=== PATIENT | male | born 1935 | race Caucasian/White ===

== ENCOUNTER 2021-02-08 17:18 | Inpatient (IN) ==
[2021-02-08] MEDS ORDERED: PANTOprazole 80 MG in DEXTROSE 5% 100 ML IV STA (17:25)
--- NOTE | 2021-02-08 17:44 | Emergency Department Note ---
Impression & Plan COVID-19, Non-ST elevation [place] (NSTEMI), Bloody diarrhea, Hypoxia ED Provider Note Provider: Johnny Kelley MD DATE OF SERVICE: 02/08/2021 CHIEF COMPLAINT: Bloody diarrhea, vomiting HISTORY OF PRESENT ILLNESS: Patient is a 85-year-old male with a history of A. fib, GERD, hypothyroidism presenting here today via ambulance with reports of weakness and bloody diarrhea starting yesterday. Patient states that he feels generally weak and little short of breath. Denies any abdominal pain. States he felt nauseous and vomited several times. Received IV steroids, DuoNeb, and Zofran x2 prior to arrival for EMS. Patient is fatigued in appearance. Has been sick with Covid since the 12th of this month. Was evidently seen according to his this morning at the [facility] emergency department and placed on Augmentin for pneumonia although was told likely viral pneumonia. Patient has had diarrhea for more than a week he reports. Worsening weakness at home today and states he fell down onto his hands at the top of the floor but did not strike his head. Patient did take his Eliquis earlier today. Denies a history of GI bleed. Patient reports he tried to eat but threw up his medicines early. Patient denies any headache or dizziness. Patient is vaccinated for Covid. REVIEW OF SYSTEMS: A total of 10 review of systems was obtained and negative except as stated above in the HPI. PAST MEDICAL HISTORY: As noted above MEDICATIONS: Reviewed home medications include Eliquis SOCIAL HISTORY: Lives at home with PHYSICAL EXAM: GENERAL: alert and oriented on the stretcher appears fatigued Head: normocephalic and atraumatic EYES: No injection, discharge or icterus. NECK: Trachea midline. Supple. ENT: Mucous membranes pink and moist. LUNGS: Airway patent. No retractions. Breath sounds clear HEART: Regular rate and rhythm. No chest wall tenderness ABDOMEN: Soft and non-tender, without guarding or rebound. SKIN: Acyanotic but pale in appearance, warm, dry, without rashes EXTREMITIES: Without tenderness but 1+ bilateral lower extremity edema. NEUROLOGICAL: No focal deficits. No aphasia. No facial droop or slurred speech. EK bpm ventricular paced rhythm without PVC. No acute ST segment elevation noted with a QTC of 546. No priors available here. CONTINUOUS CARDIAC MONITORING: was ordered and showed a heart rate of 70s bpm in ventricular paced rhythm Patient's laboratory studies and imaging reviewed. Differential includes Diverticulosis, AVM, coagulopathy, colitis, inflammatory bowel disease, malignancy, Leslee-Burden tear, esophagitis, peptic ulcer disease, variceal bleed, gastritis, epistaxis, fissure, hemorrhoids, neurological, cardiac as well as other pathologies. IMPRESSION/MEDICAL DECISION MAKING: Patient fatigued hypoxic on room air with history of Covid. Diarrhea for several weeks now bloody over the last day or 2 according to him. Some vomiting earlier today. Denies significant abdominal pain but pale in appearance. Not hypotensive. No significant leukocytosis here. Mild anemia of 11. No prior blood work here. EKG appears placed and is hypertensive. Patient INR is elevated at 2.0. Took a dose of Augmentin earlier today but otherwise has not been on antibiotics. denies significant symptoms. No other sick contacts reported. Given Protonix here initially. Type and screen sent to the blood bank. Patient did have a fall to his hands but did not fall and strike his head. Do not believe we need imaging of his head at this time. CT the abdomen pelvis to be obtained to look for intra-abdominal pathology. Renal function appears stable. Mild transaminitis with an elevated troponin noted today. Patient again denies chest pain. Likely demand. Given some dexamethasone was hypoxia. Feel is less likely this is an upper GI bleed again and believe given his significant pulmonary findings steroids would be indicated. Again did receive a bolus of 80 mg of Protonix. No severe electrolyte abnormality. CT abdomen pelvis per radiology without significant acute intra-abdominal pathology. Discussed with the hospitalist. We will proceed with CT of the chest to exclude bacterial pneumonia component. Significant pulmonary consolidations noted and given the duration of illness will cover broadly with Zosyn and vancomycin. Symptoms likely related to Covid. Doubt significant upper GI bleed. Patient and were updated at bedside with the plan for admission and further care. DIAGNOSIS: Bloody diarrhea, COVID-19 pneumonia, hypoxia DISPOSITION: Hospitalist will evaluate Patient was agreeable with this plan. Critical Care I have personally spent 35 minutes of critical care time in the direct management of this patient. This includes bedside care, interpretation of diagnostic studies, and testing, discussion with consultants, patient, and family members, and other required patient management activities. These 35 minutes is in excess of all separately billable procedures. 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 Beliefs That Will Affect Care: None Current Living Situation: Spouse Current Living Situation Comment: Lives independently at home with Merari Feels Safe at Home: Yes Safety Concerns: Feels Safe At This Time Allergies Allergies Allergy/AdvReac Type Severity Reaction Status Date / Time sulfamethoxazole Allergy Intermediate BLISTER--PER Verified 02/08/21 17:33 [From Bactrim] MED LIST trimethoprim [From Bactrim] Allergy Intermediate BLISTER--PER Verified 02/08/21 17:33 MED LIST bee venom protein (honey bee) Allergy Unknown ON MED LIST Verified 02/08/21 17:33 POLLEN Allergy Unknown ON MED LIST Uncoded 02/08/21 17:33 Home Meds Home Medications Medication Instructions Recorded Confirmed acetaminophen 325 mg tablet 650 mg PO DIRECTED PRN 02/08/21 02/08/21 (Tylenol) amoxicillin 875 mg-potassium 1 tab PO BID 02/08/21 02/08/21 clavulanate 125 mg tablet apixaban 5 mg tablet (Eliquis) 5 mg PO BID 02/08/21 02/08/21 atorvastatin 80 mg tablet 80 mg PO QPM 02/08/21 02/08/21 diphenoxylate-atropine 2.5 1 tab PO DIRECTED PRN 02/08/21 02/08/21 mg-0.025 mg tablet doxazosin 4 mg tablet 4 mg PO DAILY 02/08/21 02/08/21 dutasteride 0.5 mg capsule 0.5 mg PO DAILY 02/08/21 02/08/21 furosemide 40 mg tablet See Rx Instructions .ROUTE .COMPLEX 02/08/21 02/08/21 guaifenesin 600 mg tablet, 600 mg PO Q12H PRN 02/08/21 02/08/21 extended release 12 hr (Mucinex) lansoprazole 15 mg capsule,delayed 15 mg PO DAILY 02/08/21 02/08/21 release levothyroxine 25 mcg tablet 25 mcg PO DAILYBB 02/08/21 02/08/21 metoprolol succinate 50 mg 75 mg PO DAILY 02/08/21 02/08/21 tablet,extended release 24 hr potassium chloride 20 mEq 40 meq PO DAILY 02/08/21 02/08/21 tablet,extended release(part/cryst) (Klor-Con M) vitamins A,C,G-cdtx-runstl 7,160 1 tab PO BID 02/08/21 02/08/21 unit-113 mg-100 unit tablet (PreserVision AREDS) Results & Data (ED) Vital Signs Vital Signs - 24 hr 02/08/21 17:27 02/08/21 17:48 02/08/21 18:00 Temperature 36.5 C Temperature Source Oral Pulse Rate 70 70 70 Pulse Rate [Apical] Pulse Rate from SpO2 Sensor 70 70 69 Respiratory Rate 15 20 23 Blood Pressure 166/94 H 174/108 H 164/107 H Blood Pressure [Left Arm] Blood Pressure Mean 118 130 126 Blood Pressure Mean [Left Arm] Pulse Oximetry 93 93 95 Oxygen Delivery Method Room Air Oxygen Flow Rate Sepsis Recent Fever Within 48 Hours Yes Sepsis New/Unexplained Change in Mental Status No Sepsis Action Taken by Nursing No Action Required 02/08/21 18:12 02/08/21 18:28 02/08/21 18:30 Temperature Temperature Source Pulse Rate 73 Pulse Rate [Apical] 71 Pulse Rate from SpO2 Sensor 71 Respiratory Rate 18 21 Blood Pressure 164/91 H Blood Pressure [Left Arm] 164/107 H Blood Pressure Mean 115 Blood Pressure Mean [Left Arm] 126 Pulse Oximetry 95 95 95 Oxygen Delivery Method Nasal Cannula Nasal Cannula Oxygen Flow Rate 3 3 Sepsis Recent Fever Within 48 Hours Sepsis New/Unexplained Change in Mental Status Sepsis Action Taken by Nursing 02/08/21 19:01 02/08/21 19:30 02/08/21 20:30 Temperature Temperature Source Pulse Rate 72 71 70 Pulse Rate [Apical] Pulse Rate from SpO2 Sensor 69 69 81 Respiratory Rate 22 21 21 Blood Pressure 171/93 H 166/93 H 160/97 H Blood Pressure [Left Arm] Blood Pressure Mean 119 117 118 Blood Pressure Mean [Left Arm] Pulse Oximetry 96 96 93 Oxygen Delivery Method Oxygen Flow Rate 3 3 3 Sepsis Recent Fever Within 48 Hours Sepsis New/Unexplained Change in Mental Status Sepsis Action Taken by Nursing 02/08/21 21:00 Temperature Temperature Source Pulse Rate 71 Pulse Rate [Apical] Pulse Rate from SpO2 Sensor 69 Respiratory Rate 17 Blood Pressure 138/90 Blood Pressure [Left Arm] Blood Pressure Mean 106 Blood Pressure Mean [Left Arm] Pulse Oximetry 98 Oxygen Delivery Method Oxygen Flow Rate 3 Sepsis Recent Fever Within 48 Hours Sepsis New/Unexplained Change in Mental Status Sepsis Action Taken by Nursing Laboratory Data Result diagrams: 02/08/21 17:35 02/08/21 17:35 Lab Results 02/08/21 02/08/21 02/08/21 Range/Units 17:35 17:35 17:35 WBC 9.70 (4.8-10.8) K/uL RBC 3.31 L (4.7-6.1) M/uL Hgb 11.0 L (14.0-18.0) g/dL Hct 33.2 L (42-52) % MCV 100.3 H (80-100) fL MCH 33.2 (25-34) pg MCHC 33.1 (32-36) g/dL RDW Std Deviation 51.8 H (36.4-46.3) fL RDW Coeff of Milana 14.1 (11.5-14.5) % Plt Count 210 (130-400) K/uL MPV 11.0 H (7.4-10.4) fL Immature Gran % (Auto) 0.7 % Neut % (Auto) 76.1 % Lymph % (Auto) 12.3 % Victoria % (Auto) 9.9 % Eos % (Auto) 0.9 % Baso % (Auto) 0.1 % Neut # (Auto) 7.38 H (1.4-6.5) K/uL Lymph # (Auto) 1.19 L (1.2-3.4) K/uL Victoria # (Auto) 0.96 H (0.11-0.59) K/uL Eos # (Auto) 0.09 (0-0.5) K/uL Baso # (Auto) 0.01 (0-0.2) K/uL Immature Gran # (Auto) 0.07 H (0.00-0.02) K/uL PT 19.3 H (9.0-12.0) Seconds INR 2.0 H (0.9-1.1) Sodium 135 L (136-145) mmol/L Potassium 4.1 (3.5-5.1) mmol/L Chloride 102 (98-107) mmol/L Carbon Dioxide 25 (21-32) mmol/L Anion Gap 8.0 (3-11) BUN 28 H (7-18) mg/dl Creatinine 1.09 (0.6-1.4) mg/dl Est Cr Clr Drug Dosing 53.6 ml/min Est GFR ( Amer) 70.9 ml/min Est GFR (Non-Af Amer) 61.1 ml/min BUN/Creatinine Ratio 25.3 H (10-20) Glucose 172 H (70-99) mg/dl Calcium 8.3 L (8.5-10.1) mg/dl Magnesium 2.0 (1.8-2.4) mg/dl Total Bilirubin 1.3 H (0.2-1) mg/dl AST 142 H (15-37) U/L ALT 194 H (12-78) U/L Alkaline Phosphatase 143 H (45-117) U/L Troponin I 1.920 H* (0-0.045) ng/ml Total Protein 7.6 (6.4-8.2) gm/dl Albumin 2.2 L (3.4-5.0) gm/dl Globulin 5.4 H (2.5-4.0) gm/dl Albumin/Globulin Ratio 0.4 L (0.9-2) TSH 1.740 (0.300-4.500) uIu/ml COVID-19 Eval Order SARS-CoV-2 (PCR) (Negative) Blood Type Antibody Screen 02/08/21 02/08/21 02/08/21 Range/Units 17:35 17:35 17:55 WBC (4.8-10.8) K/uL RBC (4.7-6.1) M/uL Hgb (14.0-18.0) g/dL Hct (42-52) % MCV (80-100) fL MCH (25-34) pg MCHC (32-36) g/dL RDW Std Deviation (36.4-46.3) fL RDW Coeff of Milana (11.5-14.5) % Plt Count (130-400) K/uL MPV (7.4-10.4) fL Immature Gran % (Auto) % Neut % (Auto) % Lymph % (Auto) % Victoria % (Auto) % Eos % (Auto) % Baso % (Auto) % Neut # (Auto) (1.4-6.5) K/uL Lymph # (Auto) (1.2-3.4) K/uL Victoria # (Auto) (0.11-0.59) K/uL Eos # (Auto) (0-0.5) K/uL Baso # (Auto) (0-0.2) K/uL Immature Gran # (Auto) (0.00-0.02) K/uL PT (9.0-12.0) Seconds INR (0.9-1.1) Sodium (136-145) mmol/L Potassium (3.5-5.1) mmol/L Chloride (98-107) mmol/L Carbon Dioxide (21-32) mmol/L Anion Gap (3-11) BUN (7-18) mg/dl Creatinine (0.6-1.4) mg/dl Est Cr Clr Drug Dosing ml/min Est GFR ( Amer) ml/min Est GFR (Non-Af Amer) ml/min BUN/Creatinine Ratio (10-20) Glucose (70-99) mg/dl Calcium (8.5-10.1) mg/dl Magnesium (1.8-2.4) mg/dl Total Bilirubin (0.2-1) mg/dl AST (15-37) U/L ALT (12-78) U/L Alkaline Phosphatase (45-117) U/L Troponin I (0-0.045) ng/ml Total Protein (6.4-8.2) gm/dl Albumin (3.4-5.0) gm/dl Globulin (2.5-4.0) gm/dl Albumin/Globulin Ratio (0.9-2) TSH (0.300-4.500) uIu/ml COVID-19 Eval Order Covid19 at [facility] SARS-CoV-2 (PCR) POSITIVE A* (Negative) Blood Type O Positive Antibody Screen NEGATIVE Administered Medications Atorvastatin Calcium (Atorvastatin 40 Mg Tab) 80 mg PO QPM KATHIA Stop: 03/10/21 22:59 Last Admin: 02/08/21 23:57 Dose: 80 mg Documented by: [id number] Doxazosin Mesylate (Doxazosin Mesylate 4 Mg Tab) 4 mg PO HS KATHIA Stop: 03/10/21 22:59 Last Admin: 02/08/21 23:57 Dose: 4 mg Documented by: [id number] Guaifenesin/Dextromethorphan (Guaifenesin/Dextrom Syrup 100mg/10mg 5ml Udc) 5 ml PO Q6H PRN PRN Reason: Cough Stop: 03/10/21 22:31 Last Admin: 02/08/21 23:56 Dose: 5 ml Documented by: [id number] Azithromycin 500 mg/ Dextrose 255 mls @ 125 mls/hr IV Q24H KATHIA Stop: 02/15/21 22:59 Last Admin: 02/08/21 23:58 Dose: 125 mls/hr Documented by: [id number] Discontinued Medications Dexamethasone Sodium Phosphate (DexamethasonePf 10 Mg/Ml Vial) 10 mg IV NOW ONE Stop: 02/08/21 19:34 Last Admin: 02/08/21 19:47 Dose: 10 mg Documented by: [id number] Pantoprazole Sodium 80 mg/ (Dextrose) 100 mls @ 400 mls/hr IV ONE STA Stop: 02/08/21 17:39 Last Infusion: 02/08/21 19:44 Dose: 0 mls/hr Documented by: [id number] Admin: 02/08/21 18:22 Dose: 400 mls/hr Documented by: [id number] Piperacillin Sod/Tazobactam Sod (Zosyn) 4.5 gm in 120 mls @ 240 mls/hr IV NOW ONE Stop: 02/08/21 21:07 Last Infusion: 02/08/21 21:14 Dose: 0 mls/hr Documented by: [id number] Admin: 02/08/21 20:44 Dose: 240 mls/hr Documented by: [id number] Vancomycin HCl 1,750 mg/ (Sodium Chloride) 535 mls @ 200 mls/hr IV NOW ONE Stop: 02/08/21 23:23 Last Admin: 02/08/21 23:10 Dose: 200 mls/hr Documented by: [id number] Ioversol (Optiray 320 100ml) 94 ml IV ONCE ONE Stop: 02/08/21 18:48 Last Admin: 02/08/21 18:47 Dose: 94 ml Documented by: [id number] Imaging Data Radiologist's Impression: Chest X-Ray 02/08/21 17:26 XR chest 1V portable HISTORY: weakness COMPARISON: None. FINDINGS: No pneumothorax. No pleural effusions. 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 The heart is mildly enlarged. No evidence for pulmonary edema. There are patchy bilateral airspace opacities most pronounced within the left lung. This consistent with a moderate multifocal pneumonia and is likely secondary to a viral process. IMPRESSION: Moderate multifocal pneumonia which is likely secondary to a viral process. ACT 112: Negative or not required by law. Electronically signed by: Nehemiah Talbert M.D. 02/08/2021 6:25 PM Abdomen/Pelvis CT 02/08/21 18:[address] WITH IV CONTRAST CT DOSE: 632.07 mGy.cm HISTORY: covid, bloody diarrhea TECHNIQUE: Multiaxial CT images of the abdomen and pelvis were performed following the use of intravenous contrast. A dose lowering technique was utilized adhering to the principles of ALARA. COMPARISON STUDY: None. FINDINGS: Multifocal patchy groundglass and consolidative airspace opacities within the lung bases consistent with the patient's known history of a viral pneumonia. The heart is mildly enlarged. A pacemaker wire is partially visualized. No pneumoperitoneum. No pneumatosis. Small fat-containing bilateral inguinal hernias. Mild bladder wall thickening which is likely chronic. The prostate gland is enlarged. A few colonic diverticula. No evidence for acute diverticulitis. No bowel wall thickening or obstruction. Normal appendix. Mild edema within the left lower quadrant adjacent to the pelvic sidewall best seen o n image 342. This is of uncertain clinical significance and could be due to a mild edematous state. There is mild body wall edema noted. No retroperitoneal lymphadenopathy. Calcified plaque within the normal caliber abdominal aorta. The main portal vein is patent. Mild bilateral perinephric edema which is likely chronic. The kidneys enhance normally. Multiple bilateral peripelvic renal cysts. No hydronephrosis. Punctate calcifications within the pancreas consistent with chronic pancreatitis. No CT evidence for acute pancreatitis at this time. Mild hepatic steatosis. The gallbladder, spleen, and adrenal glands are unremarkable. IMPRESSION: 1. No bowel wall thickening or obstruction. 2. Normal appendix. 3. Multifocal patchy airspace opacities within the lung bases consistent with the patient's known history of a viral pneumonia. 4. Evidence for chronic pancreatitis. No CT evidence for acute pancreatitis. 5. Additional findings as described above. ACT 112: Negative or not required by law. Electronically signed by: Nehemiah Talbert M.D. 02/08/2021 6:[address] 02/08/21 19:33 CT chest diagnostic wo con CT DOSE: 523.67 mGy.cm HISTORY: Weakness. Abnormal chest x-ray. TECHNIQUE: Multiaxial CT images of the chest were performed without contrast. A dose lowering technique was utilized adhering to the principles of ALARA. COMPARISON: None. FINDINGS: No pneumothorax. The central airways are patent. Scattered multifocal groundglass and consolidative airspace opacities within the lungs consistent with a pneumonia. A few scattered small nodular densities within the lungs with the largest in the right lower lobe on image 173 measuring 11 mm. Please refer to same day abdomen and pelvis CT for further evaluation of the abdominal structures. No fractures within the visualized osseous structures of the chest. 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 No significant mediastinal or hilar lymphadenopathy. The heart is normal in size. Trace pericardial effusion and trace bilateral pleural effusions. Normal esophagus. IMPRESSION: 1. Multifocal airspace opacities consistent with a moderate bilateral pneumonia. 2. Trace bilateral pleural effusions and a trace pericardial effusion. 3. A few small scattered nodular densities within the lungs with the largest in the right lower lobe measuring 11 mm. These likely correspond to the patient's pneumonia. However, consider six-month chest CT follow-up to ensure st ability/resolution. ACT 112: Negative or not required by law. Electronically signed by: Nehemiah Talbert M.D. 02/08/2021 8:30 PM Discharge Plan Visit Data Chief Complaint: Illness ED Provider: Johnny Kelley Discharge Problem: COVID-19, Non-ST elevation TN (NSTEMI), Bloody diarrhea, Hypoxia Patient Disposition: Admitted As Inpatient Discharge Instructions Interventions: ED Discharge Assessment Last Done: 02/08/21 22:10
[2021-02-08 17:51] LABS: Basophils # (auto) 0.01 K/uL (0-0.2); Basophils % (auto) 0.1 %; Eosinophils # (auto) 0.09 K/uL (0-0.5); Eosinophils % (auto) 0.9 %; Hematocrit (blood only) 33.2 % (42-52); Immature Granulocytes # (auto) 0.07 K/uL (0.00-0.02); Immature Granulocytes % (auto) 0.7 %; Lymphocytes # (auto) 1.19 K/uL (1.2-3.4); Lymphocytes % (auto) 12.3 %; Mean Corpuscular Hemoglobin 33.2 pg (25-34); Mean Corpuscular Hgb Conc 33.1 g/dL (32-36); Mean Corpuscular Volume 100.3 fL (80-100); Monocytes # (auto) 0.96 K/uL (0.11-0.59); Monocytes % (auto) 9.9 %; Neutrophils # (auto) 7.38 K/uL (1.4-6.5); Neutrophils % (auto) 76.1 %; Platelet Count 210 K/uL (130-400); RDW Coefficient of Variation 14.1 % (11.5-14.5); RDW Standard Deviation 51.8 fL (36.4-46.3); Red Blood Count 3.31 M/uL (4.7-6.1)
[2021-02-08 18:01] LABS: Prothrombin Time 19.3 Seconds (9.0-12.0)
[2021-02-08 18:12] LABS: Albumin Level 2.2 gm/dl (3.4-5.0); BUN Creatinine Ratio 25.3 (10-20); Calcium 8.3 mg/dl (8.5-10.1); Creatinine Clr Calc Pharmacy 53.6 ml/min; Est GFR (African American) 70.9 ml/min; Est GFR (Non-African American) 61.1 ml/min; Potassium 4.1 mmol/L (3.5-5.1)
--- NOTE | 2021-02-08 18:26 | XRay Report ---
XR chest 1V portable HISTORY: weakness COMPARISON: None. FINDINGS: No pneumothorax. No pleural effusions. 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 The hea rt is mildly enlarged. No evidence for pulmonary edema. There are patchy bilateral airspace opacities most pronounced within the left lung. This consistent with a moderate multifocal pneumonia and is li ean secondary to a viral process. IMPRESSION: Moderate multifocal pneumonia which is likely secondary to a viral process. ACT 112: Negative or not required by law. Electronically signed by: Nehemiah Talbert M.D. 02/08/2021 6:25 PM
[2021-02-08 18:29] LABS: Albumin Globulin Ratio 0.4 (0.9-2); Bilirubin,Total 1.3 mg/dl (0.2-1); Globulin 5.4 gm/dl (2.5-4.0); Thyroid Stimulating Hormone 1.74 uIu/ml (0.300-4.500); Total Protein 7.6 gm/dl (6.4-8.2); Troponin I 1.92 ng/ml (0-0.045)
[2021-02-08] MEDS ORDERED: OPTIRAY 320 100ml IV ONE (18:47)
--- NOTE | 2021-02-08 18:58 | CT Scan Report ---
ABDOMEN AND PELVIS CT WITH IV CONTRAST CT DOSE: 632.07 mGy.cm HISTORY: covid, bloody diarrhea TECHNIQUE: Multiaxial CT images of the abdomen and pelvis were performed following the use of intrave nous contrast. A dose lowering technique was utilized adhering to the principles of ALARA. COMPARISON STUDY: None. FINDINGS: Multifocal patchy groundglass and consolidative airspace opacities within the lung bases co nsistent with the patient's known history of a viral pneumonia. The heart is mildly enlarged. A pacem krzysztof wire is partially visualized. No pneumoperitoneum. No pneumatosis. Small fat-containing bilatera l inguinal hernias. Mild bladder wall thickening which is likely chronic. The prostate gland is enlar ged. A few colonic diverticula. No evidence for acute diverticulitis. No bowel wall thickening or obs truction. Normal appendix. Mild edema within the left lower quadrant adjacent to the pelvic sidewall best seen on image 342. This is of uncertain clinical significance and could be due to a mild [place] us state. There is mild body wall edema noted. No retroperitoneal lymphadenopathy. Calcified plaque w ithin the normal caliber abdominal aorta. The main portal vein is patent. Mild bilateral perinephric edema which is likely chronic. The kidneys enhance normally. Multiple bilateral peripelvic renal cyst s. No hydronephrosis. Punctate calcifications within the pancreas consistent with chronic pancreatiti s. No CT evidence for acute pancreatitis at this time. Mild hepatic steatosis. The gallbladder, splee n, and adrenal glands are unremarkable. IMPRESSION: 1. No bowel wall thickening or obstruction. 2. Normal appendix. 3. Multifocal patchy airspace opacities within the lung bases consistent with the patient's known his tory of a viral pneumonia. 4. Evidence for chronic pancreatitis. No CT evidence for acute pancreatitis. 5. Additional findings as described above. ACT 112: Negative or not required by law. Electronically signed by: Nehemiah Talbert M.D. 02/08/2021 6:57 PM
[2021-02-08] MEDS ORDERED: dexAMETHasone**PF** 10 MG/ML VIAL IV ONE (19:33)
--- NOTE | 2021-02-08 20:32 | CT Scan Report ---
CT chest diagnostic wo con CT DOSE: 523.67 mGy.cm HISTORY: Weakness. Abnormal chest x-ray. TECHNIQUE: Multiaxial CT images of the chest were performed without contrast. A dose lowering techni que was utilized adhering to the principles of ALARA. COMPARISON: None. FINDINGS: No pneumothorax. The central airways are patent. Scattered multifocal groundglass and conso lidative airspace opacities within the lungs consistent with a pneumonia. A few scattered small nodul ar densities within the lungs with the largest in the right lower lobe on image 173 measuring 11 mm. Please refer to same day abdomen and pelvis CT for further evaluation of the abdominal structures. No fractures within the visualized osseous structures of the chest. There is a left-sided single lead p acemaker. No significant mediastinal or hilar lymphadenopathy. The heart is normal in size. Trace per icardial effusion and trace bilateral pleural effusions. Normal esophagus. IMPRESSION: 1. Multifocal airspace opacities consistent with a moderate bilateral pneumonia. 2. Trace bilateral pleural effusions and a trace pericardial effusion. 3. A few small scattered nodular densities within the lungs with the largest in the right lower lobe measuring 11 mm. These likely correspond to the patient's pneumonia. However, consider six-month ches t CT follow-up to ensure stability/resolution. ACT 112: Negative or not required by law. Electronically signed by: Nehemiah Talbert M.D. 02/08/2021 8:30 PM
[2021-02-08] MEDS ORDERED: PIPERACILL/TAZOBAC CONSULT ACTIVE PRN ×2 (20:38→22:32)
[2021-02-08] MEDS ORDERED: PIPERACILLIN/TAZOBACTAM 4.5 GM/120 ML BAG IV ONE (20:38)
[2021-02-08] MEDS ORDERED: VANCOMYCIN CONSULT ACTIVE PRN ×2 (20:43→22:32)
[2021-02-08] MEDS ORDERED: VANCOMYCIN HCL 1,750 MG in SODIUM CHLORIDE 0.9% 500 ML IV ONE (20:43)
--- NOTE | 2021-02-08 21:12 | History & Physical Report ---
Date of Service February 08, 2021 Assessment & Plan (1) Pneumonia due to COVID-19 virus: Plan: Pneumonia due to COVID-19 virus/secondary multifocal bacterial pneumonia/hypoxia- Dexamethasone 10 mg IV given in ED Dexamethasone 6 mg IV every morning Remdesivir IV per protocol Azithromycin 500 mg IV daily Vancomycin IV per pharmacokinetic monitoring Zosyn 4.5 g IV every 8 hours Duonebs every 4 hours while awake and every 2 hours when necessary. Guaifenesin extended release 1200 mg p.o. twice daily Vitamin D 1000 international units p.o. daily Zinc sulfate 220 mg p.o. daily Nasal cannula oxygen, titrate to keep pulse ox 92-94% (2) Secondary bacterial pneumonia: Plan: See above (3) Hypoxia: Plan: See above (4) Hyperlipidemia: Plan: Continue atorvastatin 80 mg in the evening (5) Bloody diarrhea: Plan: Diarrhea became bloody after several days of nonbloody diarrhea Suspect hemorrhoidal bleeding. No further bleeding while in the ED Hold apixaban for now Order stool for C. difficile and culture (6) Non-ST elevation SC (NSTEMI): Plan: CAD/hypertension/atrial fibrillation/non-STEMI- The patient will be admitted to telemetry for serial cardiac enzymes, serial EKG's, cardiac rhythm monitoring and a 2-D echocardiogram with Dopplers. Troponin 1.920 upon admission Continue metoprolol succinate 75 mg daily, Klor-Con 40 mEq daily. Hold apixaban and furosemide Consult cardiology (7) Atrial fibrillation: Plan: See above (8) BPH w urinary obs/LUTS: Plan: Continue doxazosin and dutasteride (9) GERD (gastroesophageal reflux disease): Plan: Famotidine 20 mg IV every 12 hours (10) Hypothyroidism (acquired): Plan: Continue levothyroxine 25 mcg daily (11) Hypertension: Plan: See above (12) Chronic pancreatitis: Plan: Noted on CT of abdomen and pelvis Add lipase to emergency department laboratories. Placing on a full liquid diet History of Present Illness Chief Complaint: The patient presents to the emergency department with complaint of generalized weakness, diarrhea persistent for 1 week, the became bloody in the past 24 hours, worsening shortness of breath, intermittent nausea and vomiting over the past few days. Primary Care Provider: Jakob Freeman MD The patient is a an 85-year-old male with a past medical history including atrial fibrillation, BPH with LUTS, hyperlipidemia, hypothyroidism, hypertension, GERD and a diagnosis of COVID-19 infection on 01/24. He was seen this morning at the [facility] emergency department, was placed on Augmentin, which is taken 1 dose so far, for what he was told was viral pneumonia. The patient is on Eliquis twice daily, and did take his dose this morning. He has been vaccinated for COVID-19. Work-up in the emergency department included the following abnormal laboratories: INR 2.0, albumin 2.2, glucose 172, AST 142, ALT 194, troponin 1.920, total bilirubin 1.3. COVID-19 testing in the emergency department was positive this evening Pulse ox was 88% on room air, improving to 92% on [address] of abdomen and pelvis shows multi focal patchy airspace opacities within the lung bases consistent with viral pneumonia. Evidence for chronic pancreatitis. CT scan of chest without contrast: Multifocal airspace opacities consistent with moderate bilateral pneumonia. Trace bilateral pleural effusions and a trace pericardial effusion. A few small scattered nodular densities within the lungs with the largest in the right lower lobe measuring 11 mm, likely corresponding to patient's pneumonia. Allergies Allergy/AdvReac Type Severity Reaction Status Date / Time sulfamethoxazole Allergy Intermediate BLISTER--PER Verified 02/08/21 17:33 [From Bactrim] MED LIST trimethoprim [From Bactrim] Allergy Intermediate BLISTER--PER Verified 02/08/21 17:33 MED LIST bee venom protein (honey bee) Allergy Unknown ON MED LIST Verified 02/08/21 17:33 POLLEN Allergy Unknown ON MED LIST Uncoded 02/08/21 17:33 Home Medications Medication Instructions Recorded Confirmed Type acetaminophen 325 mg tablet 650 mg PO DIRECTED PRN 02/08/21 02/08/21 History (Tylenol) amoxicillin 875 mg-potassium 1 tab PO BID 02/08/21 02/08/21 History clavulanate 125 mg tablet apixaban 5 mg tablet (Eliquis) 5 mg PO BID 02/08/21 02/08/21 History atorvastatin 80 mg tablet 80 mg PO QPM 02/08/21 02/08/21 History diphenoxylate-atropine 2.5 1 tab PO DIRECTED PRN 02/08/21 02/08/21 History mg-0.025 mg tablet doxazosin 4 mg tablet 4 mg PO DAILY 02/08/21 02/08/21 History dutasteride 0.5 mg capsule 0.5 mg PO DAILY 02/08/21 02/08/21 History furosemide 40 mg tablet See Rx Instructions .ROUTE .COMPLEX 02/08/21 02/08/21 History guaifenesin 600 mg tablet, 600 mg PO Q12H PRN 02/08/21 02/08/21 History extended release 12 hr (Mucinex) lansoprazole 15 mg capsule,delayed 15 mg PO DAILY 02/08/21 02/08/21 History release levothyroxine 25 mcg tablet 25 mcg PO DAILYBB 02/08/21 02/08/21 History metoprolol succinate 50 mg 75 mg PO DAILY 02/08/21 02/08/21 History tablet,extended release 24 hr potassium chloride 20 mEq 40 meq PO DAILY 02/08/21 02/08/21 History tablet,extended release(part/cryst) (Klor-Con M) vitamins A,C,Z-orum-leeocb 7,160 1 tab PO BID 02/08/21 02/08/21 History unit-113 mg-100 unit tablet (PreserVision AREDS) Past Med/Surg History Medical History (Updated 02/09/21 @ 04:07 by Riley Lopez MD) Atrial fibrillation BPH w urinary obs/LUTS GERD (gastroesophageal reflux disease) Hyperlipidemia Hypertension Hypothyroidism (acquired) Social History Smoking Status: Never smoker Hx Alcohol Use: Yes Alcohol type: beer Hx Substance Use: No Preferred Language: Greek Communication Ability: Effective Primer Supervisor Required: No Beliefs That Will Affect Care: None Current Living Situation: Spouse Current Living Situation Comment: Lives independently at home with Merari Feels Safe at Home: Yes Safety Concerns: Feels Safe At This Time Review of Systems Review of Systems: The patient denies palpitations, lower extremity swelling, sore throat, fevers, chills, sweats, blood in urine or stool, dysuria, urinary frequency or urgency, lightheadedness, dizziness, headache, memory loss, loss of consciousness, rash, abnormal bruising or bleeding, imbalance, focal or generalized weakness, numbness or tingling in arms or legs, generalized arthralgias or myalgias, back or neck pain, or night sweats. The review of systems is otherwise negative other than for that already noted above, and at least 10 systems have been reviewed. Physical Exam Physical Exam: The patient is awake, alert and oriented 3, normocephalic and atraumatic, lying in bed and in no acute distress. HEENT--PERRL, EOMI, mucous membranes and oropharynx dry. Neck--supple. No JVD. No bruits. Thyroid normal, trachea midline, no adenopathy. Heart--normal S1 and S2. No murmurs, rubs or gallops. Lungs--coarse breath sounds bilaterally. No respiratory distress, no accessory muscle use. Abdomen--normal bowel sounds and soft. Nontender. Nondistended. Extremities--no cyanosis or clubbing. No edema. Dermatologic--normal skin turgor, normal color, no abnormal lymph nodes, no rash. Neurologic--cranial nerves II through XII grossly intact. Rheumatologic--normal range of motion. Psychiatric--normal affect. Results & Data Results & Data ([facility]) Vital Signs (Past 12 Hours) Vital Signs Temp Pulse Pulse Resp BP BP Pulse Ox 02/08/21 20:30 70 21 160/97 H 93 02/08/21 19:30 71 21 166/93 H 96 02/08/21 19:01 72 22 171/93 H 96 02/08/21 18:30 73 21 164/91 H 95 02/08/21 18:28 71 18 164/107 H 95 02/08/21 18:12 95 02/08/21 18:00 70 23 164/107 H 95 02/08/21 17:48 70 20 174/108 H 93 02/08/21 17:27 97.7 F 70 15 166/94 H 93 Laboratory Results Laboratory Results WBC 9.70 K/uL (4.8-10.8) 02/08/21 17:35 RBC 3.31 M/uL (4.7-6.1) L 02/08/21 17:35 Hgb 11.0 g/dL (14.0-18.0) L 02/08/21 17:35 Hct 33.2 % (42-52) L 02/08/21 17:35 MCV 100.3 fL (80-100) H 02/08/21 17:35 MCH 33.2 pg (25-34) 02/08/21 17:35 MCHC 33.1 g/dL (32-36) 02/08/21 17:35 RDW Std Deviation 51.8 fL (36.4-46.3) H 02/08/21 17:35 RDW Coeff of Milana 14.1 % (11.5-14.5) 02/08/21 17:35 Plt Count 210 K/uL (130-400) 02/08/21 17:35 MPV 11.0 fL (7.4-10.4) H 02/08/21 17:35 Immature Gran % (Auto) 0.7 % 02/08/21 17:35 Neut % (Auto) 76.1 % 02/08/21 17:35 Lymph % (Auto) 12.3 % 02/08/21 17:35 [place] % (Auto) 9.9 % 02/08/21 17:35 Eos % (Auto) 0.9 % 02/08/21 17:35 Baso % (Auto) 0.1 % 02/08/21 17:35 Neut # (Auto) 7.38 K/uL (1.4-6.5) H 02/08/21 17:35 Lymph # (Auto) 1.19 K/uL (1.2-3.4) L 02/08/21 17:35 Garland # (Auto) 0.96 K/uL (0.11-0.59) H 02/08/21 17:35 Eos # (Auto) 0.09 K/uL (0-0.5) 02/08/21 17:35 Baso # (Auto) 0.01 K/uL (0-0.2) 02/08/21 17:35 Immature Gran # (Auto) 0.07 K/uL (0.00-0.02) H 02/08/21 17:35 PT 19.3 Seconds (9.0-12.0) H 02/08/21 17:35 INR 2.0 (0.9-1.1) H 02/08/21 17:35 Sodium 135 mmol/L (136-145) L 02/08/21 17:35 Potassium 4.1 mmol/L (3.5-5.1) 02/08/21 17:35 Chloride 102 mmol/L (98-107) 02/08/21 17:35 Carbon Dioxide 25 mmol/L (21-32) 02/08/21 17:35 Anion Gap 8.0 (3-11) 02/08/21 17:35 BUN 28 mg/dl (7-18) H 02/08/21 17:35 Creatinine 1.09 mg/dl (0.6-1.4) 02/08/21 17:35 Est Cr Clr Drug Dosing 53.6 ml/min 02/08/21 17:35 Est GFR ( Amer) 70.9 ml/min 02/08/21 17:35 Est GFR (Non-Af Amer) 61.1 ml/min 02/08/21 17:35 BUN/Creatinine Ratio 25.3 (10-20) H 02/08/21 17:35 Glucose 172 mg/dl (70-99) H 02/08/21 17:35 Lactate 2.0 mmol/L (0.4-2.0) 02/09/21 02:29 Calcium 8.3 mg/dl (8.5-10.1) L 02/08/21 17:35 Magnesium 2.0 mg/dl (1.8-2.4) 02/08/21 17:35 Total Bilirubin 1.3 mg/dl (0.2-1) H 02/08/21 17:35 AST 142 U/L (15-37) H 02/08/21 17:35 ALT 194 U/L (12-78) H 02/08/21 17:35 Alkaline Phosphatase 143 U/L (45-117) H 02/08/21 17:35 Troponin I 1.240 ng/ml (0-0.045) H* 02/09/21 00:15 Total Protein 7.6 gm/dl (6.4-8.2) 02/08/21 17:35 Albumin 2.2 gm/dl (3.4-5.0) L 02/08/21 17:35 Globulin 5.4 gm/dl (2.5-4.0) H 02/08/21 17:35 Albumin/Globulin Ratio 0.4 (0.9-2) L 02/08/21 17:35 TSH 1.740 uIu/ml (0.300-4.500) 02/08/21 17:35 Urine Color Yellow 02/08/21 23:30 Urine Appearance Clear (Clear) 02/08/21 23:30 Urine pH 5.5 (4.5-7.5) 02/08/21 23:30 Ur Specific [place] > 1.045 (1.000-1.030) H 02/08/21 23:30 Urine Protein 2+ (Negative) H 02/08/21 23:30 Urine Glucose (UA) Negative (Negative) 02/08/21 23:30 Urine Ketones Negative (Negative) 02/08/21 23:30 Urine Blood 1+ (Negative) H 02/08/21 23:30 Urine Nitrite Negative (Negative) 02/08/21 23:30 Urine Bilirubin Negative (Negative) 02/08/21 23:30 Urine Urobilinogen Negative (Negative) 02/08/21 23:30 Ur Leukocyte Esterase Negative (Negative) 02/08/21 23:30 Urine WBC (Auto) 1-5 /hpf (0-5) 02/08/21 23:30 Urine RBC (Auto) 0-4 /hpf (0-4) 02/08/21 23:30 U Hyaline Cast (Auto) 5-10 /lpf (0-5) H 02/08/21 23:30 U Epithel Cells (Auto) 20-30 /lpf (0-5) H 02/08/21 23:30 Urine Bacteria (Auto) Negative (Negative) 02/08/21 23:30 Nasal Screen MRSA (PCR) Negative (Negative) 02/08/21 23:40 COVID-19 Eval Order Covid19 at [facility] 02/08/21 17:35 SARS-CoV-2 (PCR) POSITIVE (Negative) A* 02/08/21 17:35 Blood Type O Positive 02/08/21 17:55 Antibody Screen NEGATIVE 02/08/21 17:55 Impressions Chest X-Ray 02/08/21 17:26 XR chest 1V portable HISTORY: weakness COMPARISON: None. FINDINGS: No pneumothorax. No pleural effusions. 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 The heart is mildly enlarged. No evidence for pulmonary edema. There are patchy bilateral airspace opacities most pronounced within the left lung. This consistent with a moderate multifocal pneumonia and is likely secondary to a viral process. IMPRESSION: Moderate multifocal pneumonia which is likely secondary to a viral process. ACT 112: Negative or not required by law. Electronically signed by: Nehemiah Talbert M.D. 02/08/2021 6:25 PM Abdomen/Pelvis CT 02/08/21 18:[address] WITH IV CONTRAST CT DOSE: 632.07 mGy.cm HISTORY: covid, bloody diarrhea TECHNIQUE: Multiaxial CT images of the abdomen and pelvis were performed following the use of intravenous contrast. A dose lowering technique was utilized adhering to the principles of ALARA. COMPARISON STUDY: None. FINDINGS: Multifocal patchy groundglass and consolidative airspace opacities within the lung bases consistent with the patient's known history of a viral pneumonia. The heart is mildly enlarged. A pacemaker wire is partially visualized. No pneumoperitoneum. No pneumatosis. Small fat-containing bilateral inguinal hernias. Mild bladder wall thickening which is likely chronic. The prostate gland is enlarged. A few colonic diverticula. No evidence for acute diverticulitis. No bowel wall thickening or obstruction. Normal appendix. Mild edema within the left lower quadrant adjacent to the pelvic sidewall best seen on image 342. This is of uncertain clinical significance and could be due to a mild edematous state. There is mild body wall edema noted. No retroperitoneal lymphadenopathy. Calcified plaque within the normal caliber abdominal aorta. The main portal vein is patent. Mild bilateral perinephric edema which is likely chronic. The kidneys enhance normally. Multiple bilateral peripelvic renal cysts. No hydronephrosis. Punctate calcifications within the pancreas consistent with chronic pancreatitis. No CT evidence for acute pancreatitis at this time. Mild hepatic steatosis. The gallbladder, spleen, and adrenal glands are unremarkable. IMPRESSION: 1. No bowel wall thickening or obstruction. 2. Normal appendix. 3. Multifocal patchy airspace opacities within the lung bases consistent with the patient's known history of a viral pneumonia. 4. Evidence for chronic pancreatitis. No CT evidence for acute pancreatitis. 5. Additional findings as described above. ACT 112: Negative or not required by law. Electronically signed by: Nehemiah Talbert M.D. 02/08/2021 6:[address] 02/08/21 19:33 CT chest diagnostic wo con CT DOSE: 523.67 mGy.cm HISTORY: Weakness. Abnormal chest x-ray. TECHNIQUE: Multiaxial CT images of the chest were performed without contrast. A dose lowering technique was utilized adhering to the principles of ALARA. COMPARISON: None. FINDINGS: No pneumothorax. The central airways are patent. Scattered multifocal groundglass and consolidative airspace opacities within the lungs consistent with a pneumonia. A few scattered small nodular densities within the lungs with the largest in the right lower lobe on image 173 measuring 11 mm. Please refer to same day abdomen and pelvis CT for further evaluation of the abdominal structures. No fractures within the visualized osseous structures of the chest. 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 No significant mediastinal or hilar lymphadenopathy. The heart is normal in size. Trace pericardial effusion and trace bilateral pleural effusions. Normal esophagus. IMPRESSION: 1. Multifocal airspace opacities consistent with a moderate bilateral pneumonia. 2. Trace bilateral pleural effusions and a trace pericardial effusion. 3. A few small scattered nodular densities within the lungs with the largest in the right lower lobe measuring 11 mm. These likely correspond to the patient's pneumonia. However, consider six-month chest CT follow-up to ensure stability/resolution. ACT 112: Negative or not required by law. Electronically signed by: Nehemiah Talbert M.D. 02/08/2021 8:30 PM Code Status & VTE Plan Code Status Full code VTE Prophylaxis Plan VTE Prophylaxis will be ordered: Yes PG Care Time/CCT Total # of Minutes Spent Total Time Spent with Patient: Total time spent is greater than 50% in coordination of care (as documented) at patient's floor/unit and/or counseling patient: Coding Level of Care Code 77168 Initial Inpt Care Lvl 3 Diagnoses Pneumonia due to COVID-19 virus U07.1; J12.82 Secondary bacterial pneumonia J15.9 Hypoxia R09.02 Hyperlipidemia E78.5 Bloody diarrhea R19.7 Non-ST elevation SC (NSTEMI) I21.4 Atrial fibrillation I48.91 BPH w urinary obs/LUTS N40.1; N13.8 GERD (gastroesophageal reflux disease) K21.9 Hypothyroidism (acquired) E03.9 Hypertension I10 Chronic pancreatitis K86.1
[2021-02-08] MEDS ORDERED: PIPERACILLIN/TAZOBACTAM 4.5 GM in DEXTROSE 5% 100 ML IV SCH (22:32)
[2021-02-08] MEDS ORDERED: guaiFENesin 600 MG TABCR PO PRN (22:32)
[2021-02-08] MEDS ORDERED: ACETAMINOPHEN 325 MG TAB PO PRN (22:32)
[2021-02-08] MEDS ORDERED: VANCOMYCIN HCL 1,500 MG in SODIUM CHLORIDE 0.9% 500 ML IV SCH (22:32)
[2021-02-08] MEDS ORDERED: NSS + 20MEQ KCL 20 MEQ/1,000 ML BAG IV SCH (23:00)
[2021-02-08] MEDS: guaiFENesin/DEXTROM SYRUP 100MG/10MG 5ML UDC PO PRN (23:56)
[2021-02-08] MEDS: DOXAZosin MESYLATE 4 MG TAB PO SCH (23:57)
[2021-02-08] MEDS: ATORVASTATIN 40 MG TAB PO SCH (23:57)
[2021-02-08] MEDS: AZITHROMYCIN 500 MG in DEXTROSE 5% 250 ML IV SCH (23:58)
[2021-02-09] MEDS: DUTASTERIDE: ORDER AWAITING ACTION SCH ×4 (00:22→22:51)
[2021-02-09 00:43] LABS: Appearance Urine Clear (Clear); Bacteria Urine Automated Negative (Negative); Bilirubin Urine Negative (Negative); Blood Urine 1+ (Negative); Color Urine Yellow; Epithelial Cell Urine Auto 20-30 /lpf (0-5); Glucose Urine UA Negative (Negative); Ketones Urine Negative (Negative); Leukocyte Esterase Urine Negative (Negative); Nitrite Urine Negative (Negative); Protein Urine 2+ (Negative); RBC Urine Automated 0-4 /hpf (0-4); Specific Gravity Urine > 1.045 (1.000-1.030); Urobilinogen Urine Negative (Negative); pH Urine 5.5 (4.5-7.5)
[2021-02-09 00:46] LABS: Troponin I 1.24 ng/ml (0-0.045)
[2021-02-09] MEDS: PIPERACILLIN/TAZOBACTAM 3.375 GM in DEXTROSE 5% 100 ML IV SCH ×3 (02:16→17:38)
[2021-02-09] MEDS: LEVOTHYROXINE SODIUM 25 MCG TABLET PO SCH (06:16)
[2021-02-09] MEDS ORDERED: ALBUT/IPRATROP 3MG/0.5MG NEB 3 ML VIAL NEB SCH (07:00)
[2021-02-09 07:48] LABS: Basophils # (auto) 0.01 K/uL (0-0.2); Basophils % (auto) 0.1 %; Hemoglobin 9.9 g/dL (14.0-18.0); Immature Granulocytes # (auto) 0.03 K/uL (0.00-0.02); Immature Granulocytes % (auto) 0.4 %; Lymphocytes # (auto) 0.74 K/uL (1.2-3.4); Mean Corpuscular Hemoglobin 32.1 pg (25-34); Mean Corpuscular Volume 97.4 fL (80-100); Mean Platelet Volume 10.9 fL (7.4-10.4); Monocytes % (auto) 3.6 %; Neutrophils # (auto) 7.16 K/uL (1.4-6.5); Neutrophils % (auto) 86.9 %; Platelet Count 180 K/uL (130-400); RDW Coefficient of Variation 14.1 % (11.5-14.5); RDW Standard Deviation 50.6 fL (36.4-46.3); Red Blood Count 3.08 M/uL (4.7-6.1); White Blood Count 8.24 K/uL (4.8-10.8)
[2021-02-09] MEDS: dexAMETHasone 6 MG in SYRINGE 0 ML IV SCH (08:13)
[2021-02-09] MEDS: PANTOprazole 40 MG TAB PO SCH (08:13)
[2021-02-09] MEDS: CHOLECALCIFEROL 1,000 UNITS 25 MCG TAB PO SCH (08:14)
[2021-02-09] MEDS: POTASSIUM CHLORIDE CRTAB 20 MEQ TABCR PO SCH (08:14)
[2021-02-09] MEDS: METOPROLOL SUCC 25MG EXT REL TAB PO SCH (08:14)
[2021-02-09] MEDS: ZINC SULFATE 220 MG CAPSULE PO SCH (08:14)
[2021-02-09] MEDS: guaiFENesin/DEXTROM SYRUP 100MG/10MG 5ML UDC PO PRN (08:15)
[2021-02-09 08:18] LABS: BUN Creatinine Ratio 24.5 (10-20); Est GFR (African American) 85.9 ml/min; Est GFR (Non-African American) 74.1 ml/min; Potassium 4.3 mmol/L (3.5-5.1)
[2021-02-09 08:19] LABS: INR 1.8 (0.9-1.1); Partial Thromboplastin Ratio 1.3; Partial Thromboplastin Time 33.4 Seconds (21.0-31.0); Prothrombin Time 17.7 Seconds (9.0-12.0)
[2021-02-09 08:20] LABS: Albumin Globulin Ratio 0.4 (0.9-2); Bilirubin,Total 1.3 mg/dl (0.2-1); Globulin 4.8 gm/dl (2.5-4.0); Total Protein 6.8 gm/dl (6.4-8.2)
--- NOTE | 2021-02-09 09:37 | Hospitalist Progress Note ---
Date of Service February 09, 2021 Assessment & Plan (1) Pneumonia due to COVID-19 virus: Plan: Pneumonia due to COVID-19 virus/secondary multifocal bacterial pneumonia/hypoxia day 16 of illness when he was admitted, was fully vaccinated in July 2020 currrently he is stable on 3L dexamethasone 6mg IV daily, day 2 too far out for benefit from Remdesivir check a CRP tomorrow, but currently oxygen requirement not high enough for immune modulation therapy agree with one liter of saline with K but stop after that, likely resume Lasix tomorrow continue Zithromax, Zosyn, stop Vanco since MRSA was negative add flutter valve, incentive spirometer, needs aggressive pulmonary toilet to mobilize sputum Mucinex [place] PRN Vitamin D 1000 international units p.o. daily Zinc sulfate 220 mg p.o. daily (2) Secondary bacterial pneumonia: Plan: certainly possible, productive cough with thick sputum, two weeks into COVID illness at this point continue Zithromax and Zosyn aggressive pulmonary toileting (3) Hypoxia: Plan: acute hypoxic respiratory failure due to COVID pneumonia, possible secondary bacterial infection down to 3L from 5L, continue to titrate as tolerated (4) Bloody diarrhea: Plan: Diarrhea became bloody after several days of nonbloody diarrhea Suspect hemorrhoidal bleeding. No further bleeding while in the ED or after admitted continue to hold apixaban Order stool for C. difficile and culture but no sample yet (5) Non-ST elevation AR (NSTEMI): Plan: CAD/hypertension/atrial fibrillation/non-STEMI no chest pain, troponin elevated at 1.9, down to 1.1 today suspect this is type II, demand ischemia in setting of hypoxemia patient is not on aspirin, will add it 81mg daily Continue metoprolol succinate 75 mg daily, Klor-Con 40 mEq daily. Hold apixaban due to bleeding, INR 1.8 hold on cardiology consult for now as he is chest pain free, BP stable feel like his issues are more related to COVID and hypoxemia (6) Atrial fibrillation: Plan: See above continue Toprol for rate control (7) BPH w urinary obs/LUTS: Plan: Continue doxazosin and dutasteride (8) GERD (gastroesophageal reflux disease): Plan: Famotidine 20 mg IV every 12 hours (9) Hypothyroidism (acquired): Plan: Continue levothyroxine 25 mcg daily (10) Hyperlipidemia: Plan: Continue atorvastatin 80 mg in the evening (11) Hypertension: Plan: See above (12) Chronic pancreatitis: Plan: Noted on CT of abdomen and pelvis advance to heart healthy diet Admission and Anticipated Discharge Date Admission Date: February 08, 2021 Subjective patient says he feels better than yesterday, down to 3L from 5L, no distress has "a lot of junk rattling in my chest, trying to get it up" confirms he has been sick for about 16 days, got to the point that he was too weak and short of breath to get up off the floor so they called EMS confirms he has his vaccine in late July 2020, both he and his got the shot he says he had diarrhea for a few days then it turned bloody, no movements last night or this morning he says he had a little blood in his sputum recently as well, but not jr hemoptysis reviewed chart and labs, including imaging of the chest and abdomen INR is 1.8, on Eliquis which is held, might have some Vit K deficiency recently troponin going down, still 1.1, no chest pain overnight or now encouraged him to use flutter valve and incentive spirometer, mobilize sputum Review of Systems Review of Systems: All systems reviewed & are unremarkable except as noted in Subjective Respiratory: + cough, + chest congestion, + dyspnea, + dyspnea on exertion, + hemoptysis (streaks of blood in sputum) and + sputum production Cardiovascular: + lightheadedness and + edema (ankles bilaterally); no chest pain Gastrointestinal: + nausea, + vomiting, + diarrhea/loose stools and + blood in stools; no abdominal pain and no constipation Physical Exam Physical Exam: General: well developed, elderly male, ill appearing, frail appearing, no acute distress Neck: supple, trachea midline, normal thyroid Lungs: rhonchi bilaterally, don't clear with cough, crackles bilaterally, slightly tachypneic, no accessory muscle use, no distress Heart: regular S1 and S2, no murmur, peripheral pulses normal, capillary refill normal, +1 edema in ankles bilaterally Abdomen: soft, NT, ND, + BS, no hepatomegaly, normal to percussion Extremities: normal in appearance, no cyanosis, no petechiae, strength is 5/5 bilaterally Neuro: awake, cooperative, moves all extremities, no focal motor deficits, CN II-XII intact, sensation in extremities intact, normal speech Skin: warm, dry, no rash, normal turgor Psych: Awake, alert oriented x 3, euthymic affect Results & Data Results & Data ([facility]) Vital Signs (Past 12 Hours) Vital Signs Temp Pulse Pulse Resp BP BP Pulse Ox 02/09/21 08:04 36.6 C 70 20 155/93 H 92 02/09/21 07:42 69 18 90 02/09/21 03:48 36.3 C L 70 18 141/89 H 90 02/09/21 01:55 73 02/08/21 22:42 36.5 C 70 18 157/94 H 92 02/08/21 21:31 70 21 150/95 H 95 Laboratory Results Laboratory Results - last 24 hr 02/08/21 02/08/21 02/08/21 17:35 17:35 17:35 WBC 9.70 RBC 3.31 L Hgb 11.0 L Hct 33.2 L MCV 100.3 H MCH 33.2 MCHC 33.1 RDW Std Deviation 51.8 H RDW Coeff of Milana 14.1 Plt Count 210 MPV 11.0 H Immature Gran % (Auto) 0.7 Neut % (Auto) 76.1 Lymph % (Auto) 12.3 Kay % (Auto) 9.9 Eos % (Auto) 0.9 Baso % (Auto) 0.1 Neut # (Auto) 7.38 H Lymph # (Auto) 1.19 L Kay # (Auto) 0.96 H Eos # (Auto) 0.09 Baso # (Auto) 0.01 Immature Gran # (Auto) 0.07 H PT 19.3 H INR 2.0 H APTT PTT Ratio Sodium 135 L Potassium 4.1 Chloride 102 Carbon Dioxide 25 Anion Gap 8.0 BUN 28 H Creatinine 1.09 Est Cr Clr Drug Dosing 53.6 Est GFR ( Amer) 70.9 Est GFR (Non-Af Amer) 61.1 BUN/Creatinine Ratio 25.3 H Glucose 172 H Lactate Calcium 8.3 L Magnesium 2.0 Total Bilirubin 1.3 H AST 142 H ALT 194 H Alkaline Phosphatase 143 H Troponin I 1.920 H* Total Protein 7.6 Albumin 2.2 L Globulin 5.4 H Albumin/Globulin Ratio 0.4 L Lipase Cancelled TSH 1.740 Urine Color Urine Appearance Urine pH Ur Specific [place] Urine Protein Urine Glucose (UA) Urine Ketones Urine Blood Urine Nitrite Urine Bilirubin Urine Urobilinogen Ur Leukocyte Esterase Urine WBC (Auto) Urine RBC (Auto) U Hyaline Cast (Auto) U Epithel Cells (Auto) Urine Bacteria (Auto) Nasal Screen MRSA (PCR) COVID-19 Eval Order SARS-CoV-2 (PCR) Blood Type Antibody Screen 02/08/21 02/08/21 02/08/21 17:35 17:35 17:55 WBC RBC Hgb Hct MCV MCH MCHC RDW Std Deviation RDW Coeff of [place]ana Plt Count MPV Immature Gran % (Auto) Neut % (Auto) Lymph % (Auto) Kay % (Auto) Eos % (Auto) Baso % (Auto) Neut # (Auto) Lymph # (Auto) Kay # (Auto) Eos # (Auto) Baso # (Auto) Immature Gran # (Auto) PT INR APTT PTT Ratio Sodium Potassium Chloride Carbon Dioxide Anion Gap BUN Creatinine Est Cr Clr Drug Dosing Est GFR ( Amer) Est GFR (Non-Af Amer) BUN/Creatinine Ratio Glucose Lactate Calcium Magnesium Total Bilirubin AST ALT Alkaline Phosphatase Troponin I Total Protein Albumin Globulin Albumin/Globulin Ratio Lipase TSH Urine Color Urine Appearance Urine pH Ur Specific [place] Urine Protein Urine Glucose (UA) Urine Ketones Urine Blood Urine Nitrite Urine Bilirubin Urine Urobilinogen Ur Leukocyte Esterase Urine WBC (Auto) Urine RBC (Auto) U Hyaline Cast (Auto) U Epithel Cells (Auto) Urine Bacteria (Auto) Nasal Screen MRSA (PCR) COVID-19 Eval Order Covid19 at [facility] SARS-CoV-2 (PCR) POSITIVE A* Blood Type O Positive Antibody Screen NEGATIVE 02/08/21 02/08/21 02/09/21 23:30 23:40 00:15 WBC RBC Hgb Hct MCV MCH MCHC RDW Std Deviation RDW Coeff of [place]ana Plt Count MPV Immature Gran % (Auto) Neut % (Auto) Lymph % (Auto) Kay % (Auto) Eos % (Auto) Baso % (Auto) Neut # (Auto) Lymph # (Auto) Kay # (Auto) Eos # (Auto) Baso # (Auto) Immature Gran # (Auto) PT INR APTT PTT Ratio Sodium Potassium Chloride Carbon Dioxide Anion Gap BUN Creatinine Est Cr Clr Drug Dosing Est GFR ( Amer) Est GFR (Non-Af Amer) BUN/Creatinine Ratio Glucose Lactate 2.5 H* Calcium Magnesium Total Bilirubin AST ALT Alkaline Phosphatase Troponin I Total Protein Albumin Globulin Albumin/Globulin Ratio Lipase TSH Urine Color Yellow Urine Appearance Clear Urine pH 5.5 Ur Specific [place] > 1.045 H Urine Protein 2+ H Urine Glucose (UA) Negative Urine Ketones Negative Urine Blood 1+ H Urine Nitrite Negative Urine Bilirubin Negative Urine Urobilinogen Negative Ur Leukocyte Esterase Negative Urine WBC (Auto) 1-5 Urine RBC (Auto) 0-4 U Hyaline Cast (Auto) 5-10 H U Epithel Cells (Auto) 20-30 H Urine Bacteria (Auto) Negative Nasal Screen MRSA (PCR) Negative COVID-19 Eval Order SARS-CoV-2 (PCR) Blood Type Antibody Screen 02/09/21 02/09/21 02/09/21 00:15 02:29 07:26 WBC 8.24 RBC 3.08 L Hgb 9.9 L Hct 30.0 L MCV 97.4 MCH 32.1 MCHC 33.0 RDW Std Deviation 50.6 H RDW Coeff of Milana 14.1 Plt Count 180 MPV 10.9 H Immature Gran % (Auto) 0.4 Neut % (Auto) 86.9 Lymph % (Auto) 9.0 Kay % (Auto) 3.6 Eos % (Auto) 0.0 Baso % (Auto) 0.1 Neut # (Auto) 7.16 H Lymph # (Auto) 0.74 L Kay # (Auto) 0.30 Eos # (Auto) 0.00 Baso # (Auto) 0.01 Immature Gran # (Auto) 0.03 H PT INR APTT PTT Ratio Sodium Potassium Chloride Carbon Dioxide Anion Gap BUN Creatinine Est Cr Clr Drug Dosing Est GFR ( Amer) Est GFR (Non-Af Amer) BUN/Creatinine Ratio Glucose Lactate 2.0 Calcium Magnesium Total Bilirubin AST ALT Alkaline Phosphatase Troponin I 1.240 H* Total Protein Albumin Globulin Albumin/Globulin Ratio Lipase 253 TSH Urine Color Urine Appearance Urine pH Ur Specific [place] Urine Protein Urine Glucose (UA) Urine Ketones Urine Blood Urine Nitrite Urine Bilirubin Urine Urobilinogen Ur Leukocyte Esterase Urine WBC (Auto) Urine RBC (Auto) U Hyaline Cast (Auto) U Epithel Cells (Auto) Urine Bacteria (Auto) Nasal Screen MRSA (PCR) COVID-19 Eval Order SARS-CoV-2 (PCR) Blood Type Antibody Screen 02/09/21 02/09/21 02/09/21 07:26 07:26 07:26 WBC RBC Hgb Hct MCV MCH MCHC RDW Std Deviation RDW Coeff of [place] Plt Count MPV Immature Gran % (Auto) Neut % (Auto) Lymph % (Auto) Kay % (Auto) Eos % (Auto) Baso % (Auto) Neut # (Auto) Lymph # (Auto) Kay # (Auto) Eos # (Auto) Baso # (Auto) Immature Gran # (Auto) PT 17.7 H INR 1.8 H APTT 33.4 H PTT Ratio 1.3 Sodium 135 L Potassium 4.3 Chloride 105 Carbon Dioxide 25 Anion Gap 5.0 BUN 23 H Creatinine 0.93 Est Cr Clr Drug Dosing 63.0 Est GFR ( Amer) 85.9 Est GFR (Non-Af Amer) 74.1 BUN/Creatinine Ratio 24.5 H Glucose 187 H Lactate Calcium 8.0 L Magnesium Total Bilirubin 1.3 H AST 81 H ALT 143 H Alkaline Phosphatase 121 H Troponin I 1.170 H* Total Protein 6.8 Albumin 2.0 L Globulin 4.8 H Albumin/Globulin Ratio 0.4 L Lipase TSH Urine Color Urine Appearance Urine pH Ur Specific [place] Urine Protein Urine Glucose (UA) Urine Ketones Urine Blood Urine Nitrite Urine Bilirubin Urine Urobilinogen Ur Leukocyte Esterase Urine WBC (Auto) Urine RBC (Auto) U Hyaline Cast (Auto) U Epithel Cells (Auto) Urine Bacteria (Auto) Nasal Screen MRSA (PCR) COVID-19 Eval Order SARS-CoV-2 (PCR) Blood Type Antibody Screen Medications Administered Current Inpatient Medications Acetaminophen (Acetaminophen 325 Mg Tab) 650 mg PO Q4H PRN PRN Reason: Pain or Fever Stop: 03/10/21 22:31 Albuterol (Albut/Ipratrop 3mg/0.5mg Neb 3 Ml Vial) 3 ml NEB QIDR KATHIA Stop: 03/11/21 06:59 Last Admin: 02/09/21 07:41 Dose: 3 ml Documented by: Atorvastatin Calcium (Atorvastatin 40 Mg Tab) 80 mg PO QPM KATHIA Stop: 03/10/21 22:59 Last Admin: 02/08/21 23:57 Dose: 80 mg Documented by: Doxazosin Mesylate (Doxazosin Mesylate 4 Mg Tab) 4 mg PO HS KATHIA Stop: 03/10/21 22:59 Last Admin: 02/08/21 23:57 Dose: 4 mg Documented by: Guaifenesin (Guaifenesin 600 Mg Tabcr) 600 mg PO Q12H PRN PRN Reason: Congestion Stop: 03/10/21 22:31 Guaifenesin/Dextromethorphan (Guaifenesin/Dextrom Syrup 100mg/10mg 5ml Udc) 5 ml PO Q6H PRN PRN Reason: Cough Stop: 03/10/21 22:31 Last Admin: 02/09/21 08:15 Dose: 5 ml Documented by: Potassium Chloride/Sodium Chloride (Normal Saline W/20 Meq Kcl) 20 meq in 1,000 mls @ 60 mls/hr IV .[id number] KATHIA Stop: 02/09/21 15:39 Last Admin: 02/09/21 02:16 Dose: 60 mls/hr Documented by: Dexamethasone 6 mg/ Syringe 1.5 mls @ 1 mls/min IV DAILY KATHIA Stop: 03/11/21 08:59 Last Admin: 02/09/21 08:13 Dose: 1 mls/min Documented by: Azithromycin 500 mg/ Dextrose 255 mls @ 125 mls/hr IV Q24H KATHIA Stop: 02/15/21 22:59 Last Infusion: 02/09/21 02:24 Dose: Infused Documented by: Piperacillin Sod/Tazobactam (Sod 3.375 gm/ Dextrose) 115 mls @ 28.75 mls/hr IV Q8H [facility]; Protocol Stop: 02/16/21 01:59 Last Infusion: 02/09/21 08:15 Dose: Infused Documented by: Vancomycin HCl 1,000 mg/ (Sodium Chloride) 270 mls @ 200 mls/hr IV Q18H [facility]; Protocol Stop: 02/16/21 11:59 Levothyroxine Sodium (Levothyroxine Sodium 25 Mcg Tablet) 25 mcg PO DAILYBB KATHIA Stop: 03/11/21 06:29 Last Admin: 02/09/21 06:16 Dose: 25 mcg Documented by: Metoprolol Succinate (Metoprolol Succ 25mg Ext Rel Tab) 75 mg PO DAILY KATHIA Stop: 03/11/21 08:59 Last Admin: 02/09/21 08:14 Dose: 75 mg Documented by: Miscellaneous (Dutasteride: Order Awaiting Action) 1 ea N/A QS KATHIA Stop: 03/11/21 00:00 Last Admin: 02/09/21 08:13 Dose: Not Given Documented by: Miscellaneous Information (Vancomycin Consult Active) 1 ea N/A UD PRN PRN Reason: Consult Stop: 03/10/21 22:31 Miscellaneous Information (Piperacill/Tazobac Consult Active) 1 ea N/A UD PRN PRN Reason: Consult Stop: 03/10/21 22:31 Ondansetron HCl (Ondansetron Inj 2 Mg/Ml 2 Ml Vial) 4 mg IV Q6H PRN PRN Reason: Nausea Stop: 03/10/21 22:31 Pantoprazole Sodium (Pantoprazole 40 Mg Tab) 40 mg PO DAILY [facility]; Protocol Stop: 03/11/21 08:59 Last Admin: 02/09/21 08:13 Dose: 40 mg Documented by: Potassium Chloride (Potassium Chloride Crtab 20 Meq Tabcr) 40 meq PO DAILY [facility] Stop: 03/11/21 08:59 Last Admin: 02/09/21 08:14 Dose: 40 meq Documented by: Vitamin D (Cholecalciferol 1,000 Units 25 Mcg Tab) 1,000 units PO QAM [facility] Stop: 03/11/21 08:59 Last Admin: 02/09/21 08:14 Dose: 1,000 units Documented by: Zinc Sulfate (Zinc Sulfate 220 Mg Capsule) 220 mg PO QAM [facility] Stop: 03/11/21 08:59 Last Admin: 02/09/21 08:14 Dose: 220 mg Documented by: PG Care Time/CCT Total # of Minutes Spent Total Time Spent with Patient: Total time spent is greater than 50% in coordination of care (as documented) at patient's floor/unit and/or counseling patient: Coding Level of Care Code 78376 Subseq Hosp Care Lvl 3 Diagnoses Pneumonia due to COVID-19 virus U07.1; J12.82 Secondary bacterial pneumonia J15.9 Hypoxia R09.02 Hyperlipidemia E78.5 Bloody diarrhea R19.7 Non-ST elevation AR (NSTEMI) I21.4 Atrial fibrillation I48.91 BPH w urinary obs/LUTS N40.1; N13.8 GERD (gastroesophageal reflux disease) K21.9 Hypothyroidism (acquired) E03.9 Hypertension I10 Chronic pancreatitis K86.1
[2021-02-09] MEDS ORDERED: ALBUT/IPRATROP 3MG/0.5MG NEB 3 ML VIAL NEB PRN (10:24)
[2021-02-09] MEDS ORDERED: VANCOMYCIN HCL 1,000 MG in SODIUM CHLORIDE 0.9% 250 ML IV SCH (12:00)
--- NOTE | 2021-02-09 18:14 | XCELERA ---
[id number]
[2021-02-09] MEDS: ATORVASTATIN 40 MG TAB PO SCH (20:35)
[2021-02-09] MEDS: DOXAZosin MESYLATE 4 MG TAB PO SCH (20:36)
[2021-02-09] MEDS: AZITHROMYCIN 500 MG in DEXTROSE 5% 250 ML IV SCH (22:47)
[2021-02-10] MEDS: PIPERACILLIN/TAZOBACTAM 3.375 GM in DEXTROSE 5% 100 ML IV SCH ×3 (01:54→18:29)
[2021-02-10] MEDS: guaiFENesin/DEXTROM SYRUP 100MG/10MG 5ML UDC PO PRN (05:23)
[2021-02-10] MEDS: LEVOTHYROXINE SODIUM 25 MCG TABLET PO SCH (05:24)
--- NOTE | 2021-02-10 06:17 | Electrocardiogram Report ---
Test Reason : Blood Pressure : / mmHG Vent. Rate : 070 BPM Atrial Rate : 067 BPM P-R Int : 000 ms QRS Dur : 160 ms QT Int : 506 ms P-R-T Axes : 000 098 -46 degrees QTc Int : 546 ms Poor data quality, interpretation may be adversely affected Ventricular-paced rhythm Abnormal ECG No previous ECGs available Confirmed by [place] ([id number]) on 02/10/2021 6:16:55 AM Referred By: REFERRED SELF Confirmed By:[place]
[2021-02-10 07:15] LABS: Basophils # (auto) 0.01 K/uL (0-0.2); Basophils % (auto) 0.1 %; Hemoglobin 9.8 g/dL (14.0-18.0); Immature Granulocytes # (auto) 0.06 K/uL (0.00-0.02); Immature Granulocytes % (auto) 0.4 %; Lymphocytes # (auto) 1.07 K/uL (1.2-3.4); Lymphocytes % (auto) 7.2 %; Mean Corpuscular Hgb Conc 32.7 g/dL (32-36); Monocytes # (auto) 1.19 K/uL (0.11-0.59); Neutrophils # (auto) 12.61 K/uL (1.4-6.5); Neutrophils % (auto) 84.3 %; Platelet Count 208 K/uL (130-400); RDW Coefficient of Variation 14.1 % (11.5-14.5); RDW Standard Deviation 50.4 fL (36.4-46.3); Red Blood Count 3.06 M/uL (4.7-6.1); White Blood Count 14.94 K/uL (4.8-10.8)
[2021-02-10 07:39] LABS: INR 1.8 (0.9-1.1); Prothrombin Time 17.4 Seconds (9.0-12.0)
[2021-02-10 07:46] LABS: Albumin Level 1.9 gm/dl (3.4-5.0); BUN Creatinine Ratio 25.5 (10-20); Calcium 8.4 mg/dl (8.5-10.1); Creatinine Clr Calc Pharmacy 49.2 ml/min; Est GFR (African American) 63.7 ml/min; Potassium 4.4 mmol/L (3.5-5.1)
[2021-02-10 07:48] LABS: Albumin Globulin Ratio 0.4 (0.9-2); Bilirubin,Total 1.1 mg/dl (0.2-1); Globulin 4.7 gm/dl (2.5-4.0); Total Protein 6.6 gm/dl (6.4-8.2)
[2021-02-10] MEDS: FUROSEMIDE 40 MG TAB PO SCH (09:18)
[2021-02-10] MEDS: dexAMETHasone 6 MG in SYRINGE 0 ML IV SCH (09:18)
[2021-02-10] MEDS: CHOLECALCIFEROL 1,000 UNITS 25 MCG TAB PO SCH (09:19)
[2021-02-10] MEDS: ZINC SULFATE 220 MG CAPSULE PO SCH (09:19)
[2021-02-10] MEDS: POTASSIUM CHLORIDE CRTAB 20 MEQ TABCR PO SCH (09:19)
[2021-02-10] MEDS: METOPROLOL SUCC 25MG EXT REL TAB PO SCH (09:19)
[2021-02-10] MEDS: PANTOprazole 40 MG TAB PO SCH (09:19)
[2021-02-10] MEDS: DUTASTERIDE: ORDER AWAITING ACTION SCH (09:22)
--- NOTE | 2021-02-10 10:59 | Hospitalist Progress Note ---
Date of Service February 10, 2021 Assessment & Plan (1) Pneumonia due to COVID-19 virus: Plan: Pneumonia due to COVID-19 virus/secondary multifocal bacterial pneumonia/hypoxia day 16 of illness when he was admitted, was fully vaccinated in July 2020 currrently he is stable on 3L, stable for three days dexamethasone 6mg IV daily, day 3 too far out for benefit from Remdesivir resume Lasix 40mg PO daily continue Zithromax, Zosyn for 5 days, stop Vanco since MRSA was negative add flutter valve, incentive spirometer, needs aggressive pulmonary toilet to mobilize sputum Mucinex lungs are much clearer today, rhonchi resolved Dunonebs PRN Vitamin D 1000 international units p.o. daily Zinc sulfate 220 mg p.o. daily (2) Secondary bacterial pneumonia: Plan: certainly possible, productive cough with thick sputum, two weeks into COVID illness at this point continue Zithromax and Zosyn for 5 days, day 3 today aggressive pulmonary toileting, coughing up sputum with flutter valve, no more rhonchi (3) Hypoxia: Plan: acute hypoxic respiratory failure due to COVID pneumonia, possible secondary bacterial infection stable on 3L for two days, looking much better since admission (4) Bloody diarrhea: Plan: Diarrhea became bloody after several days of nonbloody diarrhea Suspect hemorrhoidal bleeding. No further bleeding for three days now resume apixaban Order stool for C. difficile and culture but no sample yet (5) Non-ST elevation CA (NSTEMI): Plan: CAD/hypertension/atrial fibrillation/non-STEMI no chest pain, troponin elevated at 1.9, down to 1.0 today suspect this is type II, demand ischemia in setting of hypoxemia patient is not on aspirin, will add it 81mg daily Continue metoprolol succinate 75 mg daily, Klor-Con 40 mEq daily. resume apixaban hold on cardiology consult for now as he is chest pain free, BP stable feel like his issues are more related to COVID and hypoxemia echo with preserved EF, possible mass, thrombus in right atrium? would continue apixaban, get follow up echo as outpatient (6) Atrial fibrillation: Plan: See above continue Toprol for rate control mostly sinus rhythm on monitor (7) BPH w urinary obs/LUTS: Plan: Continue doxazosin and dutasteride (8) GERD (gastroesophageal reflux disease): Plan: Famotidine 20 mg IV every 12 hours (9) Hypothyroidism (acquired): Plan: Continue levothyroxine 25 mcg daily (10) Hyperlipidemia: Plan: Continue atorvastatin 80 mg in the evening (11) Hypertension: Plan: See above (12) Chronic pancreatitis: Plan: Noted on CT of abdomen and pelvis advance to heart healthy diet Admission and Anticipated Discharge Date Admission Date: February 08, 2021 Subjective echo report reviewed, has a echogenic structure, either mass, thrombus, in right atrium, will work up further once recovered from COVID patient doing great today, not coughing as much, breathing better, still on 3L making urine after Lasix this morning no BM, he sat on the commode for a while, told him I won't be surprised if it is a few days since he had diarrhea for a while prior to admission WBC is 14K, likely from steroids, Hb 9.8, INR 1.8, Cr 1.19, K 4.4 eating well, says the food is pretty good he is in good spirits, making jokes about playing his flutter valve Review of Systems Review of Systems: All systems reviewed & are unremarkable except as noted in Subjective Constitutional: + fatigue and + weakness; no fever Respiratory: + cough, + dyspnea on exertion and + hemoptysis (small streaks in sputum); no dyspnea Cardiovascular: no chest pain and no edema Gastrointestinal: + constipation; no abdominal pain, no nausea, no vomiting and no diarrhea/loose stools Physical Exam Physical Exam: General: well developed, elderly male, ill appearing, frail appearing, no acute distress Neck: supple, trachea midline, normal thyroid Lungs: lungs clear bilaterally, no longer with rhonchi, normal respiratory effort, no accessory muscle use, no distress Heart: regular S1 and S2, no murmur, peripheral pulses normal, capillary refill normal, no edema Abdomen: soft, NT, ND, + BS, no hepatomegaly, normal to percussion Extremities: normal in appearance, no cyanosis, no petechiae, strength is 5/5 bilaterally Neuro: awake, cooperative, moves all extremities, no focal motor deficits, CN II-XII intact, sensation in extremities intact, normal speech Skin: warm, dry, no rash, normal turgor Psych: Awake, alert oriented x 3, euthymic affect Results & Data Results & Data ([facility]) Vital Signs (Past 12 Hours) Vital Signs Temp Pulse Pulse Resp BP Pulse Ox 02/10/21 08:14 36.8 C 95 H 20 161/93 H 94 02/10/21 03:56 36.7 C 70 18 156/78 H 95 02/10/21 01:49 72 02/09/21 23:07 36.5 C 71 18 153/90 H 96 Laboratory Results Laboratory Results - last 24 hr 02/09/21 02/10/21 02/10/21 15:15 06:49 06:49 WBC 14.94 H RBC 3.06 L Hgb 9.8 L Hct 30.0 L MCV 98.0 MCH 32.0 MCHC 32.7 RDW Std Deviation 50.4 H RDW Coeff of Milana 14.1 Plt Count 208 MPV 11.0 H Immature Gran % (Auto) 0.4 Neut % (Auto) 84.3 Lymph % (Auto) 7.2 [place] % (Auto) 8.0 Eos % (Auto) 0.0 Baso % (Auto) 0.1 Neut # (Auto) 12.61 H Lymph # (Auto) 1.07 L [place] # (Auto) 1.19 H Eos # (Auto) 0.00 Baso # (Auto) 0.01 Immature Gran # (Auto) 0.06 H PT 17.4 H INR 1.8 H Sodium Potassium Chloride Carbon Dioxide Anion Gap BUN Creatinine Est Cr Clr Drug Dosing Est GFR ( Amer) Est GFR (Non-Af Amer) BUN/Creatinine Ratio Glucose Calcium Total Bilirubin AST ALT Alkaline Phosphatase Troponin I 1.060 H* Total Protein Albumin Globulin Albumin/Globulin Ratio 02/10/21 06:49 WBC RBC Hgb Hct MCV MCH MCHC RDW Std Deviation RDW Coeff of Milana Plt Count MPV Immature Gran % (Auto) Neut % (Auto) Lymph % (Auto) [place] % (Auto) Eos % (Auto) Baso % (Auto) Neut # (Auto) Lymph # (Auto) [place] # (Auto) Eos # (Auto) Baso # (Auto) Immature Gran # (Auto) PT INR Sodium 134 L Potassium 4.4 Chloride 105 Carbon Dioxide 23 Anion Gap 6.0 BUN 30 H Creatinine 1.19 Est Cr Clr Drug Dosing 49.2 Est GFR ( Amer) 63.7 Est GFR (Non-Af Amer) 55.0 BUN/Creatinine Ratio 25.5 H Glucose 181 H Calcium 8.4 L Total Bilirubin 1.1 H AST 79 H ALT 133 H Alkaline Phosphatase 119 H Troponin I Total Protein 6.6 Albumin 1.9 L Globulin 4.7 H Albumin/Globulin Ratio 0.4 L Medications Administered Current Inpatient Medications Acetaminophen (Acetaminophen 325 Mg Tab) 650 mg PO Q4H PRN PRN Reason: Pain or Fever Stop: 03/10/21 22:31 Albuterol (Albut/Ipratrop 3mg/0.5mg Neb 3 Ml Vial) 3 ml NEB Q4 PRN PRN Reason: Shortness Of Breath Or Wheezing Stop: 03/11/21 10:23 Apixaban (Apixaban 5 Mg Tablet) 5 mg PO BID KATHIA Stop: 03/12/21 10:59 Atorvastatin Calcium (Atorvastatin 40 Mg Tab) 80 mg PO QPM KATHIA Stop: 03/10/21 22:59 Last Admin: 02/09/21 20:35 Dose: 80 mg Documented by: Doxazosin Mesylate (Doxazosin Mesylate 4 Mg Tab) 4 mg PO HS KATHIA Stop: 03/10/21 22:59 Last Admin: 02/09/21 20:36 Dose: 4 mg Documented by: Furosemide (Furosemide 40 Mg Tab) 40 mg PO QAM KATHIA Stop: 03/12/21 08:59 Last Admin: 02/10/21 09:18 Dose: 40 mg Documented by: Guaifenesin (Guaifenesin 600 Mg Tabcr) 600 mg PO Q12H PRN PRN Reason: Congestion Stop: 03/10/21 22:31 Guaifenesin/Dextromethorphan (Guaifenesin/Dextrom Syrup 100mg/10mg 5ml Udc) 5 ml PO Q6H PRN PRN Reason: Cough Stop: 03/10/21 22:31 Last Admin: 02/10/21 05:23 Dose: 5 ml Documented by: Dexamethasone 6 mg/ Syringe 1.5 mls @ 1 mls/min IV DAILY KATHIA Stop: 03/11/21 08:59 Last Admin: 02/10/21 09:18 Dose: 1 mls/min Documented by: Azithromycin 500 mg/ Dextrose 255 mls @ 125 mls/hr IV Q24H KATHIA Stop: 02/15/21 22:59 Last Infusion: 02/10/21 01:37 Dose: Infused Documented by: Piperacillin Sod/Tazobactam (Sod 3.375 gm/ Dextrose) 115 mls @ 28.75 mls/hr IV Q8H [facility]; Protocol Stop: 02/16/21 01:59 Last Admin: 02/10/21 09:22 Dose: 28.8 mls/hr Documented by: Levothyroxine Sodium (Levothyroxine Sodium 25 Mcg Tablet) 25 mcg PO DAILYBB [facility] Stop: 03/11/21 06:29 Last Admin: 02/10/21 05:24 Dose: 25 mcg Documented by: Metoprolol Succinate (Metoprolol Succ 25mg Ext Rel Tab) 75 mg PO DAILY [facility] Stop: 03/11/21 08:59 Last Admin: 02/10/21 09:19 Dose: 75 mg Documented by: Miscellaneous (Dutasteride: Order Awaiting Action) 1 ea N/A QS [facility] Stop: 03/11/21 00:00 Last Admin: 02/10/21 09:22 Dose: Not Given Documented by: Miscellaneous Information (Piperacill/Tazobac Consult Active) 1 ea N/A UD PRN PRN Reason: Consult Stop: 03/10/21 22:31 Ondansetron HCl (Ondansetron Inj 2 Mg/Ml 2 Ml Vial) 4 mg IV Q6H PRN PRN Reason: Nausea Stop: 03/10/21 22:31 Pantoprazole Sodium (Pantoprazole 40 Mg Tab) 40 mg PO DAILY [facility]; Protocol Stop: 03/11/21 08:59 Last Admin: 02/10/21 09:19 Dose: 40 mg Documented by: Potassium Chloride (Potassium Chloride Crtab 20 Meq Tabcr) 40 meq PO DAILY [facility] Stop: 03/11/21 08:59 Last Admin: 02/10/21 09:19 Dose: 40 meq Documented by: Vitamin D (Cholecalciferol 1,000 Units 25 Mcg Tab) 1,000 units PO QAM [facility] Stop: 03/11/21 08:59 Last Admin: 02/10/21 09:19 Dose: 1,000 units Documented by: Zinc Sulfate (Zinc Sulfate 220 Mg Capsule) 220 mg PO QAM KATHIA Stop: 03/11/21 08:59 Last Admin: 02/10/21 09:19 Dose: 220 mg Documented by: PG Care Time/CCT Total # of Minutes Spent Total Time Spent with Patient: Total time spent is greater than 50% in coordination of care (as documented) at patient's floor/unit and/or counseling patient: Coding Level of Care Code 36384 Subseq Hosp Care Lvl 2 Diagnoses Pneumonia due to COVID-19 virus U07.1; J12.82 Secondary bacterial pneumonia J15.9 Hypoxia R09.02 Bloody diarrhea R19.7 Non-ST elevation CA (NSTEMI) I21.4 Atrial fibrillation I48.91 BPH w urinary obs/LUTS N40.1; N13.8 GERD (gastroesophageal reflux disease) K21.9 Hypothyroidism (acquired) E03.9 Hyperlipidemia E78.5 Hypertension I10 Chronic pancreatitis K86.1
[2021-02-10] MEDS: APIXABAN 5 MG TABLET PO SCH ×2 (12:48→21:12)
--- NOTE | 2021-02-10 13:24 | Electrocardiogram Report ---
Test Reason : Blood Pressure : / mmHG Vent. Rate : 070 BPM Atrial Rate : 050 BPM P-R Int : 000 ms QRS Dur : 150 ms QT Int : 506 ms P-R-T Axes : 000 098 -34 degrees QTc Int : 546 ms Ventricular-paced rhythm with occasional Premature ventricular complexes Abnormal ECG When compared with ECG of 08-FEB-2021 17:23, Premature ventricular complexes are now Present Confirmed by [place] ([id number]) on 02/10/2021 1:24:21 PM Referred By: REFERRED SELF Confirmed By:[place]
[2021-02-10] MEDS: ATORVASTATIN 40 MG TAB PO SCH (21:12)
[2021-02-10] MEDS: DOXAZosin MESYLATE 4 MG TAB PO SCH (21:12)
[2021-02-10] MEDS: AZITHROMYCIN 500 MG in DEXTROSE 5% 250 ML IV SCH (22:35)
[2021-02-11] MEDS: PIPERACILLIN/TAZOBACTAM 3.375 GM in DEXTROSE 5% 100 ML IV SCH (01:55)
--- NOTE | 2021-02-11 05:28 | Electrocardiogram Report ---
Test Reason : Blood Pressure : / mmHG Vent. Rate : 070 BPM Atrial Rate : 066 BPM P-R Int : 000 ms QRS Dur : 144 ms QT Int : 492 ms P-R-T Axes : 000 098 -50 degrees QTc Int : 531 ms Ventricular-paced rhythm Abnormal ECG When compared with ECG of 09-FEB-2021 06:20, Premature ventricular complexes are no longer Present Confirmed by [place] ([id number] on 02/11/2021 5:27:55 AM Referred By: REFERRED SELF Confirmed By:[place]
[2021-02-11] MEDS: LEVOTHYROXINE SODIUM 25 MCG TABLET PO SCH (06:21)
[2021-02-11 07:57] LABS: Basophils # (auto) 0.01 K/uL (0-0.2); Basophils % (auto) 0.1 %; Hematocrit (blood only) 31.3 % (42-52); Hemoglobin 10.3 g/dL (14.0-18.0); Immature Granulocytes # (auto) 0.07 K/uL (0.00-0.02); Immature Granulocytes % (auto) 0.5 %; Lymphocytes # (auto) 1.35 K/uL (1.2-3.4); Lymphocytes % (auto) 8.8 %; Mean Corpuscular Hemoglobin 32.1 pg (25-34); Mean Corpuscular Hgb Conc 32.9 g/dL (32-36); Mean Corpuscular Volume 97.5 fL (80-100); Mean Platelet Volume 10.9 fL (7.4-10.4); Monocytes % (auto) 8.5 %; Neutrophils # (auto) 12.54 K/uL (1.4-6.5); Neutrophils % (auto) 82.1 %; Platelet Count 217 K/uL (130-400); RDW Coefficient of Variation 14.1 % (11.5-14.5); RDW Standard Deviation 50.5 fL (36.4-46.3); Red Blood Count 3.21 M/uL (4.7-6.1); White Blood Count 15.27 K/uL (4.8-10.8)
[2021-02-11 08:00] LABS: INR 1.8 (0.9-1.1); Prothrombin Time 17.7 Seconds (9.0-12.0)
[2021-02-11 08:25] LABS: Albumin Level 2.1 gm/dl (3.4-5.0); BUN Creatinine Ratio 27.8 (10-20); Calcium 8.6 mg/dl (8.5-10.1); Est GFR (African American) 70.9 ml/min; Est GFR (Non-African American) 61.1 ml/min; Potassium 4.2 mmol/L (3.5-5.1)
[2021-02-11 08:27] LABS: Albumin Globulin Ratio 0.4 (0.9-2); Bilirubin,Total 1.1 mg/dl (0.2-1); Globulin 4.7 gm/dl (2.5-4.0); Total Protein 6.8 gm/dl (6.4-8.2)
[2021-02-11] MEDS: FUROSEMIDE 40 MG TAB PO SCH (08:56)
[2021-02-11] MEDS: METOPROLOL SUCC 25MG EXT REL TAB PO SCH (08:56)
[2021-02-11] MEDS: FINASTERIDE 5 MG TAB PO SCH (08:56)
[2021-02-11] MEDS: POTASSIUM CHLORIDE CRTAB 20 MEQ TABCR PO SCH (08:56)
[2021-02-11] MEDS: APIXABAN 5 MG TABLET PO SCH ×2 (08:56→21:30)
[2021-02-11] MEDS: CHOLECALCIFEROL 1,000 UNITS 25 MCG TAB PO SCH (08:56)
[2021-02-11] MEDS: PANTOprazole 40 MG TAB PO SCH (08:56)
[2021-02-11] MEDS: ZINC SULFATE 220 MG CAPSULE PO SCH (08:56)
[2021-02-11] MEDS: dexAMETHasone 6 MG in SYRINGE 0 ML IV SCH (08:56)
[2021-02-11] MEDS: cefTRIAXone SODIUM 2,000 MG in DEXTROSE 5% 50 ML IV SCH (09:15)
--- NOTE | 2021-02-11 11:02 | Hospitalist Progress Note ---
Date of Service February 11, 2021 Assessment & Plan (1) Pneumonia due to COVID-19 virus: Plan: Pneumonia due to COVID-19 virus/secondary multifocal bacterial pneumonia/hypoxia day 16 of illness when he was admitted, was fully vaccinated in July 2020 currrently he is stable on 3L, stable for 4 days dexamethasone 6mg IV daily, day 4 too far out for benefit from Remdesivir continue Lasix 40mg PO daily continue Rocephine/Zithromax for 5 days, today day 4 add flutter valve, incentive spirometer, needs aggressive pulmonary toilet to mobilize sputum Mucinex lungs are much clearer past two days, rhonchi resolved [place] PRN Vitamin D 1000 international units p.o. daily Zinc sulfate 220 mg p.o. daily (2) Secondary bacterial pneumonia: Plan: certainly possible, productive cough with thick sputum, two weeks into COVID illness at this point continue Zithromax and Rocephin for 5 days, day 4 today aggressive pulmonary toileting, coughing up sputum, no more bloody streaks (3) Hypoxia: Plan: acute hypoxic respiratory failure due to COVID pneumonia, possible secondary bacterial infection stable on 3L for three days, looking much better since admission (4) Bloody diarrhea: Plan: Diarrhea became bloody after several days of nonbloody diarrhea Suspect hemorrhoidal bleeding. No further bleeding for three days now resume apixaban (5) Non-ST elevation NH (NSTEMI): Plan: CAD/hypertension/atrial fibrillation/non-STEMI no chest pain, troponin elevated at 1.9, down to 1.0 on 02/10 suspect this is type II, demand ischemia in setting of hypoxemia patient is not on aspirin, will add it 81mg daily Continue metoprolol succinate 75 mg daily, Klor-Con 40 mEq daily. resume apixaban hold on cardiology consult for now as he is chest pain free, BP stable feel like his issues are more related to COVID and hypoxemia echo with preserved EF, possible mass, thrombus in right atrium? would continue apixaban, get follow up echo as outpatient (6) Atrial fibrillation: Plan: See above continue Toprol for rate control mostly sinus rhythm on monitor (7) BPH w urinary obs/LUTS: Plan: Continue doxazosin and dutasteride (8) GERD (gastroesophageal reflux disease): Plan: Famotidine 20 mg IV every 12 hours (9) Hypothyroidism (acquired): Plan: Continue levothyroxine 25 mcg daily (10) Hyperlipidemia: Plan: Continue atorvastatin 80 mg in the evening (11) Hypertension: Plan: See above (12) Chronic pancreatitis: Plan: Noted on CT of abdomen and pelvis advance to heart healthy diet Admission and Anticipated Discharge Date Admission Date: February 08, 2021 Subjective patient doing great, sitting up in a chair, ambulating in the room short distances eating well, minimal cough, no blood streaks today, breathing much easier no issues on monitor, will move him up to 3rd floor COVID unit d/w pharmacy, will change to Rocephin/Zithromax today Review of Systems Review of Systems: All systems reviewed & are unremarkable except as noted in Subjective Physical Exam Physical Exam: General: well developed, elderly male, ill appearing, frail appearing, no acute distress Neck: supple, trachea midline, normal thyroid Lungs: lungs clear bilaterally, no longer with rhonchi, normal respiratory effort, no accessory muscle use, no distress Heart: regular S1 and S2, no murmur, peripheral pulses normal, capillary refill normal, no edema Abdomen: soft, NT, ND, + BS, no hepatomegaly, normal to percussion Extremities: normal in appearance, no cyanosis, no petechiae, strength is 5/5 bilaterally Neuro: awake, cooperative, moves all extremities, no focal motor deficits, CN II-XII intact, sensation in extremities intact, normal speech Skin: warm, dry, no rash, normal turgor Psych: Awake, alert oriented x 3, euthymic affect Results & Data Results & Data ([facility]) Vital Signs (Past 12 Hours) Vital Signs Temp Pulse Pulse Resp BP BP Pulse Ox 02/11/21 10:41 36.7 C 81 18 150/91 H 95 02/11/21 07:19 36.7 C 88 19 155/77 H 91 02/11/21 04:13 37.0 C 84 19 150/100 H 159/102 H 92 02/11/21 00:26 36.8 C 81 19 127/89 91 02/11/21 00:01 81 Laboratory Results Laboratory Results - last 24 hr 02/11/21 02/11/21 02/11/21 07:33 07:33 07:33 WBC 15.27 H RBC 3.21 L Hgb 10.3 L Hct 31.3 L MCV 97.5 MCH 32.1 MCHC 32.9 RDW Std Deviation 50.5 H RDW Coeff of Milana 14.1 Plt Count 217 MPV 10.9 H Immature Gran % (Auto) 0.5 Neut % (Auto) 82.1 Lymph % (Auto) 8.8 [place] % (Auto) 8.5 Eos % (Auto) 0.0 Baso % (Auto) 0.1 Neut # (Auto) 12.54 H Lymph # (Auto) 1.35 [place] # (Auto) 1.30 H Eos # (Auto) 0.00 Baso # (Auto) 0.01 Immature Gran # (Auto) 0.07 H PT 17.7 H INR 1.8 H Sodium 135 L Potassium 4.2 Chloride 104 Carbon Dioxide 25 Anion Gap 7.0 BUN 30 H Creatinine 1.09 Est Cr Clr Drug Dosing 53.0 Est GFR ( Amer) 70.9 Est GFR (Non-Af Amer) 61.1 BUN/Creatinine Ratio 27.8 H Glucose 138 H Calcium 8.6 Total Bilirubin 1.1 H AST 75 H ALT 128 H Alkaline Phosphatase 120 H Total Protein 6.8 Albumin 2.1 L Globulin 4.7 H Albumin/Globulin Ratio 0.4 L Medications Administered Current Inpatient Medications Acetaminophen (Acetaminophen 325 Mg Tab) 650 mg PO Q4H PRN PRN Reason: Pain or Fever Stop: 03/10/21 22:31 Albuterol (Albut/Ipratrop 3mg/0.5mg Neb 3 Ml Vial) 3 ml NEB Q4 PRN PRN Reason: Shortness Of Breath Or Wheezing Stop: 03/11/21 10:23 Apixaban (Apixaban 5 Mg Tablet) 5 mg PO BID KATHIA Stop: 03/12/21 10:59 Last Admin: 02/11/21 08:56 Dose: 5 mg Documented by: Atorvastatin Calcium (Atorvastatin 40 Mg Tab) 80 mg PO QPM KATHIA Stop: 03/10/21 22:59 Last Admin: 02/10/21 21:12 Dose: 80 mg Documented by: Doxazosin Mesylate (Doxazosin Mesylate 4 Mg Tab) 4 mg PO HS KATHIA Stop: 03/10/21 22:59 Last Admin: 02/10/21 21:12 Dose: 4 mg Documented by: Finasteride (Finasteride 5 Mg Tab) 5 mg PO DAILY KATHIA Stop: 03/13/21 08:59 Last Admin: 02/11/21 08:56 Dose: 5 mg Documented by: Furosemide (Furosemide 40 Mg Tab) 40 mg PO QAM KATHIA Stop: 03/12/21 08:59 Last Admin: 02/11/21 08:56 Dose: 40 mg Documented by: Guaifenesin (Guaifenesin 600 Mg Tabcr) 600 mg PO Q12H PRN PRN Reason: Congestion Stop: 03/10/21 22:31 Guaifenesin/Dextromethorphan (Guaifenesin/Dextrom Syrup 100mg/10mg 5ml Udc) 5 ml PO Q6H PRN PRN Reason: Cough Stop: 03/10/21 22:31 Last Admin: 02/10/21 05:23 Dose: 5 ml Documented by: Dexamethasone 6 mg/ Syringe 1.5 mls @ 1 mls/min IV DAILY KATHIA Stop: 03/11/21 08:59 Last Admin: 02/11/21 08:56 Dose: 1 mls/min Documented by: Azithromycin 500 mg/ Dextrose 255 mls @ 125 mls/hr IV Q24H KATHIA Stop: 02/15/21 22:59 Last Infusion: 02/11/21 00:57 Dose: Infused Documented by: Ceftriaxone Sodium 2,000 mg/ (Dextrose) 70 mls @ 140 mls/hr IV DAILY [facility]; Protocol Stop: 02/18/21 09:59 Last Infusion: 02/11/21 09:45 Dose: Infused Documented by: Levothyroxine Sodium (Levothyroxine Sodium 25 Mcg Tablet) 25 mcg PO DAILYBB KATHIA Stop: 03/11/21 06:29 Last Admin: 02/11/21 06:21 Dose: 25 mcg Documented by: Metoprolol Succinate (Metoprolol Succ 25mg Ext Rel Tab) 75 mg PO DAILY KATHIA Stop: 03/11/21 08:59 Last Admin: 02/11/21 08:56 Dose: 75 mg Documented by: Ondansetron HCl (Ondansetron Inj 2 Mg/Ml 2 Ml Vial) 4 mg IV Q6H PRN PRN Reason: Nausea Stop: 03/10/21 22:31 Pantoprazole Sodium (Pantoprazole 40 Mg Tab) 40 mg PO DAILY [facility]; Protocol Stop: 03/11/21 08:59 Last Admin: 02/11/21 08:56 Dose: 40 mg Documented by: Potassium Chloride (Potassium Chloride Crtab 20 Meq Tabcr) 40 meq PO DAILY KATHIA Stop: 03/11/21 08:59 Last Admin: 02/11/21 08:56 Dose: 40 meq Documented by: Vitamin D (Cholecalciferol 1,000 Units 25 Mcg Tab) 1,000 units PO QAM KATHIA Stop: 03/11/21 08:59 Last Admin: 02/11/21 08:56 Dose: 1,000 units Documented by: Zinc Sulfate (Zinc Sulfate 220 Mg Capsule) 220 mg PO QAM KATHIA Stop: 03/11/21 08:59 Last Admin: 02/11/21 08:56 Dose: 220 mg Documented by: PG Care Time/CCT Total # of Minutes Spent Total Time Spent with Patient: Total time spent is greater than 50% in coordination of care (as documented) at patient's floor/unit and/or counseling patient: Coding Level of Care Code 28098 Subseq Hosp Care Lvl 3 Diagnoses Pneumonia due to COVID-19 virus U07.1; J12.82 Secondary bacterial pneumonia J15.9 Hypoxia R09.02 Bloody diarrhea R19.7 Non-ST elevation NH (NSTEMI) I21.4 Atrial fibrillation I48.91 BPH w urinary obs/LUTS N40.1; N13.8 GERD (gastroesophageal reflux disease) K21.9 Hypothyroidism (acquired) E03.9 Hyperlipidemia E78.5 Hypertension I10 Chronic pancreatitis K86.1
[2021-02-11] MEDS: ONDANSETRON INJ 2 MG/ML 2 ML VIAL IV PRN (13:58)
[2021-02-11] MEDS: ATORVASTATIN 40 MG TAB PO SCH (21:30)
[2021-02-11] MEDS: DOXAZosin MESYLATE 4 MG TAB PO SCH (21:31)
[2021-02-11] MEDS: AZITHROMYCIN 500 MG in DEXTROSE 5% 250 ML IV SCH (22:03)
[2021-02-12] MEDS: LEVOTHYROXINE SODIUM 25 MCG TABLET PO SCH (05:49)
[2021-02-12] MEDS: cefTRIAXone SODIUM 2,000 MG in DEXTROSE 5% 50 ML IV SCH (09:01)
[2021-02-12] MEDS: dexAMETHasone 6 MG in SYRINGE 0 ML IV SCH (09:06)
[2021-02-12] MEDS: ASPIRIN 81 MG ECTAB PO SCH (09:07)
[2021-02-12] MEDS: FUROSEMIDE 40 MG TAB PO SCH (09:07)
[2021-02-12] MEDS: METOPROLOL SUCC 25MG EXT REL TAB PO SCH (09:07)
[2021-02-12] MEDS: ZINC SULFATE 220 MG CAPSULE PO SCH (09:08)
[2021-02-12] MEDS: PANTOprazole 40 MG TAB PO SCH (09:08)
[2021-02-12] MEDS: POTASSIUM CHLORIDE CRTAB 20 MEQ TABCR PO SCH (09:08)
[2021-02-12] MEDS: APIXABAN 5 MG TABLET PO SCH ×2 (09:08→21:50)
[2021-02-12] MEDS: CHOLECALCIFEROL 1,000 UNITS 25 MCG TAB PO SCH (09:09)
[2021-02-12] MEDS: FINASTERIDE 5 MG TAB PO SCH (09:09)
[2021-02-12] MEDS: ONDANSETRON INJ 2 MG/ML 2 ML VIAL IV PRN (15:29)
--- NOTE | 2021-02-12 15:54 | Hospitalist Progress Note ---
Date of Service February 12, 2021 Assessment & Plan (1) Pneumonia due to COVID-19 virus: Plan: Pneumonia due to COVID-19 virus/secondary multifocal bacterial pneumonia/hypoxia day 16 of illness when he was admitted, was fully vaccinated in July 2020 currrently he is stable on room air, has steadily improved over 5 days dexamethasone 6mg IV daily, day 5 too far out for benefit from Remdesivir continue Lasix 40mg PO daily continue Rocephine/Zithromax for 5 days, today day 5 continue flutter valve, incentive spirometer, needs aggressive pulmonary toilet to mobilize sputum Mucinex lungs are much clearer past three days, rhonchi resolved Dunonebs PRN Vitamin D 1000 international units p.o. daily Zinc sulfate 220 mg p.o. daily (2) Nausea & vomiting: Plan: started on 02/12, unclear etiology, vomiting partially digested food from lunch no obstruction on KUB and he had a moderate to large BM in the afternoon Zofran PRN monitor for improvement (3) Secondary bacterial pneumonia: Plan: certainly possible, productive cough with thick sputum, two weeks into COVID illness at this point continue Zithromax and Rocephin for 5 days, day 5 today aggressive pulmonary toileting, coughing up sputum, no more bloody streaks (4) Hypoxia: Plan: acute hypoxic respiratory failure due to COVID pneumonia, possible secondary bacterial infection steadily improving, down to room air today (5) Bloody diarrhea: Plan: Diarrhea became bloody after several days of nonbloody diarrhea Suspect hemorrhoidal bleeding. No further bleeding for three days now resumed apixaban (6) Non-ST elevation GA (NSTEMI): Plan: CAD/hypertension/atrial fibrillation/non-STEMI no chest pain, troponin elevated at 1.9, down to 1.0 on 02/10 suspect this is type II, demand ischemia in setting of hypoxemia patient is not on aspirin, will add it 81mg daily Continue metoprolol succinate 75 mg daily, Klor-Con 40 mEq daily. resume apixaban hold on cardiology consult for now as he is chest pain free, BP stable feel like his issues are more related to COVID and hypoxemia echo with preserved EF, possible mass, thrombus in right atrium? would continue apixaban, get follow up echo as outpatient (7) Atrial fibrillation: Plan: See above continue Toprol for rate control moved to medical floor (8) BPH w urinary obs/LUTS: Plan: Continue doxazosin and dutasteride (9) GERD (gastroesophageal reflux disease): Plan: Famotidine 20 mg IV every 12 hours (10) Hypothyroidism (acquired): Plan: Continue levothyroxine 25 mcg daily (11) Hyperlipidemia: Plan: Continue atorvastatin 80 mg in the evening (12) Hypertension: Plan: See above (13) Chronic pancreatitis: Plan: Noted on CT of abdomen and pelvis advance to heart healthy diet Admission and Anticipated Discharge Date Admission Date: February 08, 2021 Subjective patient down to room air today, breathing well, minimal cough he did well with OT, scored 22 out of 24, waiting on PT called his , discussed that I think he can come home tomorrow with home health, home therapy later in the day he had some nausea and vomiting checked a KUB, no signs of obstruction, normal bowel gas pattern he had a large soft stool around the time of his nausea so he is moving his bowels Review of Systems Review of Systems: All systems reviewed & are unremarkable except as noted in Subjective Constitutional: no fever, no fatigue and no weakness Respiratory: no cough and no dyspnea Cardiovascular: no chest pain and no edema Gastrointestinal: + nausea and + vomiting; no abdominal pain, no constipation and no diarrhea/loose stools Physical Exam Physical Exam: General: well developed, elderly male, no acute distress, slightly diaphoretic just after vomiting Neck: supple, trachea midline, normal thyroid Lungs: lungs clear bilaterally, no longer with rhonchi, normal respiratory effort, no accessory muscle use, no distress Heart: regular S1 and S2, no murmur, peripheral pulses normal, capillary refill normal, no edema Abdomen: soft, NT, ND, + BS, no hepatomegaly, normal to percussion Extremities: normal in appearance, no cyanosis, no petechiae, strength is 5/5 bilaterally Neuro: awake, cooperative, moves all extremities, no focal motor deficits, CN II-XII intact, sensation in extremities intact, normal speech Skin: warm, dry, no rash, normal turgor Psych: Awake, alert oriented x 3, euthymic affect Results & Data Results & Data ([facility]) Vital Signs (Past 12 Hours) Vital Signs Temp Pulse Resp BP Pulse Ox Pulse Ox Pulse Ox 02/12/21 15:34 36.7 C 94 H 20 167/98 H 95 02/12/21 11:24 91 91 02/12/21 09:13 36.7 C 80 14 144/86 H 92 02/12/21 05:59 93 H 16 138/83 91 Pulse Ox 02/12/21 15:34 02/12/21 11:24 89 L 02/12/21 09:13 02/12/21 05:59 PG Care Time/CCT Total # of Minutes Spent Total Time Spent with Patient: Total time spent is greater than 50% in coordination of care (as documented) at patient's floor/unit and/or counseling patient: Coding Level of Care Code 01302 Subseq Hosp Care Lvl 3 Diagnoses Pneumonia due to COVID-19 virus U07.1; J12.82 Secondary bacterial pneumonia J15.9 Hypoxia R09.02 Bloody diarrhea R19.7 Non-ST elevation GA (NSTEMI) I21.4 Atrial fibrillation I48.91 BPH w urinary obs/LUTS N40.1; N13.8 GERD (gastroesophageal reflux disease) K21.9 Hypothyroidism (acquired) E03.9 Hyperlipidemia E78.5 Hypertension I10 Chronic pancreatitis K86.1 Nausea & vomiting R11.2
--- NOTE | 2021-02-12 18:31 | XRay Report ---
KUB HISTORY: Acute vomiting with generalized abdominal pain vomiting, abdominal distension COMPARISON: CT abdomen and pelvis 02/08/2021 FINDINGS: Bibasilar pulmonary opacities. Cardiomegaly with partially imaged pacer leads. No pneumatos is or pneumoperitoneum. Bowel gas pattern is nonobstructive. No urolith or acute fracture. IMPRESSION: 1. Nonobstructive bowel gas pattern. 2. Bibasilar pulmonary opacities with cardiomegaly redemonstrated. ACT 112: Negative or not required by law. The above report was generated using voice recognition software. It may contain grammatical, syntax o r spelling errors. Electronically signed by: Julián Velasquez M.D. 02/12/2021 6:30 PM
[2021-02-12] MEDS: DOXAZosin MESYLATE 4 MG TAB PO SCH (21:50)
[2021-02-12] MEDS: AZITHROMYCIN 500 MG in DEXTROSE 5% 250 ML IV SCH (21:50)
[2021-02-12] MEDS: ATORVASTATIN 40 MG TAB PO SCH (21:50)
[2021-02-13] MEDS: LEVOTHYROXINE SODIUM 25 MCG TABLET PO SCH (05:53)
[2021-02-13] MEDS ORDERED: METOCLOPRAMIDE HCL INJ 5 MG/ML 2 ML VIAL IV STA ×2 (07:26→11:37)
[2021-02-13] MEDS: ONDANSETRON INJ 2 MG/ML 2 ML VIAL IV PRN (08:11)
[2021-02-13] MEDS: dexAMETHasone 6 MG in SYRINGE 0 ML IV SCH (08:19)
[2021-02-13] MEDS: cefTRIAXone SODIUM 2,000 MG in DEXTROSE 5% 50 ML IV SCH (08:27)
[2021-02-13] MEDS: ZINC SULFATE 220 MG CAPSULE PO SCH (09:09)
[2021-02-13] MEDS: PANTOprazole 40 MG TAB PO SCH (09:10)
[2021-02-13] MEDS: ASPIRIN 81 MG ECTAB PO SCH (09:10)
[2021-02-13] MEDS: FINASTERIDE 5 MG TAB PO SCH (09:10)
[2021-02-13] MEDS: FUROSEMIDE 40 MG TAB PO SCH (09:11)
[2021-02-13] MEDS: CHOLECALCIFEROL 1,000 UNITS 25 MCG TAB PO SCH (09:11)
[2021-02-13] MEDS: METOPROLOL SUCC 25MG EXT REL TAB PO SCH (09:11)
[2021-02-13] MEDS: APIXABAN 5 MG TABLET PO SCH ×2 (09:15→21:50)
[2021-02-13] MEDS: POTASSIUM CHLORIDE CRTAB 20 MEQ TABCR PO SCH (09:20)
--- NOTE | 2021-02-13 10:45 | XRay Report ---
XR KUB/Abdomen 1 view INDICATION: MN ^Y ^vomiting. TECHNIQUE: 1 view of the abdomen was obtained. Comparison: Comparison is made to abdomen one view 02/12/2021 FINDINGS: Lung bases are unremarkable. The osseous structures are grossly unremarkable. The bowel gas pattern i s nonobstructive. A moderate amount of stool is noted within the large bowel. IMPRESSION: No acute abnormality, in particular no evidence of bowel obstruction. ACT 112: Negative or not required by law. Electronically signed by: Binu Sutherland M.D. 02/13/2021 10:44 AM
--- NOTE | 2021-02-13 11:41 | Hospitalist Progress Note ---
Date of Service February 13, 2021 Assessment & Plan (1) Pneumonia due to COVID-19 virus: Plan: Pneumonia due to COVID-19 virus/secondary multifocal bacterial pneumonia/hypoxia day 16 of illness when he was admitted, was fully vaccinated in July 2020 currrently he is stable on room air, has steadily improved over 5 days dexamethasone 6mg IV daily, day 6 too far out for benefit from Remdesivir continue Lasix 40mg PO daily completed Rocephin/Zithromax continue flutter valve, incentive spirometer, needs aggressive pulmonary toilet to mobilize sputum Mucinex lungs are much clearer past three days, rhonchi resolved Dunonebs PRN stop vitamins as he is nauseated (2) Nausea & vomiting: Plan: started on 02/12, unclear etiology, vomiting partially digested food from lunch no obstruction on KUB and he had a moderate to large BM in the afternoon repeat KUB 02/13 also shows no obstruction Zofran PRN give a dose of Reglan 10mg IV no ischemic changes on EKG troponin going down to 0.2, Cr normal, WBC up due to dexamethasone (3) Secondary bacterial pneumonia: Plan: certainly possible, productive cough with thick sputum, two weeks into COVID illness at this point completed Zithromax and Rocephin for 5 days aggressive pulmonary toileting, coughing up sputum, no more bloody streaks (4) Hypoxia: Plan: acute hypoxic respiratory failure due to COVID pneumonia, possible secondary bacterial infection steadily improving, down to 2L today (5) Bloody diarrhea: Plan: Diarrhea became bloody after several days of nonbloody diarrhea Suspect hemorrhoidal bleeding. No further bleeding for three days now resumed apixaban (6) Non-ST elevation AL (NSTEMI): Plan: CAD/hypertension/atrial fibrillation/non-STEMI no chest pain, troponin elevated at 1.9, down to 1.0 on 02/10 suspect this is type II, demand ischemia in setting of hypoxemia patient is not on aspirin, will add it 81mg daily Continue metoprolol succinate 75 mg daily, Klor-Con 40 mEq daily. resume apixaban hold on cardiology consult for now as he is chest pain free, BP stable feel like his issues are more related to COVID and hypoxemia echo with preserved EF, possible mass, thrombus in right atrium? would continue apixaban, get follow up echo as outpatient (7) Atrial fibrillation: Plan: See above continue Toprol for rate control moved to medical floor (8) BPH w urinary obs/LUTS: Plan: Continue doxazosin and dutasteride (9) GERD (gastroesophageal reflux disease): Plan: Famotidine 20 mg IV every 12 hours (10) Hypothyroidism (acquired): Plan: Continue levothyroxine 25 mcg daily (11) Hyperlipidemia: Plan: Continue atorvastatin 80 mg in the evening (12) Hypertension: Plan: See above (13) Chronic pancreatitis: Plan: Noted on CT of abdomen and pelvis advance to heart healthy diet Admission and Anticipated Discharge Date Admission Date: February 08, 2021 Subjective patient with some nausea again this morning, had an episode of vomiting now better, tolerating clears and light diet no BM today but he is making urine RN had to place him on 2L but his saturations are 94%, no distress called his to let her know he will be here today KUB today again shows no obstruction EKG with bifascicular block, afib which is chronic troponin 0.2, down from 1.0 a few days ago Cr is 1.07, K 4.8, WBC 16, Hb 10.6 Review of Systems Review of Systems: All systems reviewed & are unremarkable except as noted in Subjective Respiratory: + cough and + dyspnea on exertion; no dyspnea Cardiovascular: + edema; no chest pain Gastrointestinal: + nausea and + vomiting; no abdominal pain, no constipation and no diarrhea/loose stools Physical Exam Physical Exam: General: well developed, elderly male, no acute distress, slightly diaphoretic just after vomiting Neck: supple, trachea midline, normal thyroid Lungs: lungs clear bilaterally, no longer with rhonchi, normal respiratory effort, no accessory muscle use, no distress Heart: regular S1 and S2, no murmur, peripheral pulses normal, capillary refill normal, no edema Abdomen: soft, NT, slightly distended, + BS, tympanic to percussion Extremities: normal in appearance, no cyanosis, no petechiae, strength is 5/5 bilaterally Neuro: awake, cooperative, moves all extremities, no focal motor deficits, CN II-XII intact, sensation in extremities intact, normal speech Skin: warm, dry, no rash, normal turgor Psych: Awake, alert oriented x 3, euthymic affect Results & Data Results & Data ([facility]) Vital Signs (Past 12 Hours) Vital Signs Temp Pulse Resp BP BP Pulse Ox 02/13/21 10:50 94 02/13/21 09:10 82 136/75 02/13/21 08:28 94 02/13/21 08:26 88 L 02/13/21 08:00 36.8 C 85 18 159/79 H 90 02/13/21 05:49 76 161/92 H Laboratory Results Laboratory Results - last 24 hr 02/13/21 02/13/21 12:23 12:23 WBC 16.66 H RBC 3.29 L Hgb 10.6 L Hct 31.7 L MCV 96.4 MCH 32.2 MCHC 33.4 RDW Std Deviation 48.8 H RDW Coeff of Milana 14.0 Plt Count 208 MPV 11.0 H Immature Gran % (Auto) 0.6 Neut % (Auto) 87.6 Lymph % (Auto) 6.2 Aiken % (Auto) 5.5 Eos % (Auto) 0.0 Baso % (Auto) 0.1 Neut # (Auto) 14.59 H Lymph # (Auto) 1.04 L Aiken # (Auto) 0.92 H Eos # (Auto) 0.00 Baso # (Auto) 0.01 Immature Gran # (Auto) 0.10 H Sodium 133 L Potassium 4.8 Chloride 101 Carbon Dioxide 25 Anion Gap 7.0 BUN 31 H Creatinine 1.07 Est Cr Clr Drug Dosing 53.9 Est GFR ( Amer) 72.5 Est GFR (Non-Af Amer) 62.5 BUN/Creatinine Ratio 29.2 H Glucose 219 H Calcium 8.2 L Magnesium 2.1 Total Bilirubin 0.7 AST 35 ALT 88 H Alkaline Phosphatase 106 Troponin I 0.245 H* Total Protein 6.6 Albumin 2.0 L Globulin 4.6 H Albumin/Globulin Ratio 0.4 L Diagnostic Findings KUB FINDINGS: Lung bases are unremarkable. The osseous structures are grossly unremarkable. The bowel gas pattern is nonobstructive. A moderate amount of stool is noted within the large bowel. IMPRESSION: No acute abnormality, in particular no evidence of bowel obstruction. Medications Administered Current Inpatient Medications Acetaminophen (Acetaminophen 325 Mg Tab) 650 mg PO Q4H PRN PRN Reason: Pain or Fever Stop: 03/10/21 22:31 Albuterol (Albut/Ipratrop 3mg/0.5mg Neb 3 Ml Vial) 3 ml NEB Q4 PRN PRN Reason: Shortness Of Breath Or Wheezing Stop: 03/11/21 10:23 Apixaban (Apixaban 5 Mg Tablet) 5 mg PO BID KATHIA Stop: 03/12/21 10:59 Last Admin: 02/13/21 09:15 Dose: 5 mg Documented by: Aspirin (Aspirin 81 Mg Ectab) 81 mg PO QAM KATHIA Stop: 03/14/21 08:59 Last Admin: 02/13/21 09:10 Dose: 81 mg Documented by: Atorvastatin Calcium (Atorvastatin 40 Mg Tab) 80 mg PO QPM KATHIA Stop: 03/10/21 22:59 Last Admin: 02/12/21 21:50 Dose: 80 mg Documented by: Doxazosin Mesylate (Doxazosin Mesylate 4 Mg Tab) 4 mg PO HS KATHIA Stop: 03/10/21 22:59 Last Admin: 02/12/21 21:50 Dose: 4 mg Documented by: Finasteride (Finasteride 5 Mg Tab) 5 mg PO DAILY KATHIA Stop: 03/13/21 08:59 Last Admin: 02/13/21 09:10 Dose: 5 mg Documented by: Furosemide (Furosemide 40 Mg Tab) 40 mg PO QAM KATHIA Stop: 03/12/21 08:59 Last Admin: 02/13/21 09:11 Dose: 40 mg Documented by: Guaifenesin (Guaifenesin 600 Mg Tabcr) 600 mg PO Q12H PRN PRN Reason: Congestion Stop: 03/10/21 22:31 Guaifenesin/Dextromethorphan (Guaifenesin/Dextrom Syrup 100mg/10mg 5ml Udc) 5 ml PO Q6H PRN PRN Reason: Cough Stop: 03/10/21 22:31 Last Admin: 02/10/21 05:23 Dose: 5 ml Documented by: Dexamethasone 6 mg/ Syringe 1.5 mls @ 1 mls/min IV DAILY KATHIA Stop: 03/11/21 08:59 Last Admin: 02/13/21 08:19 Dose: 1 mls/min Documented by: Azithromycin 500 mg/ Dextrose 255 mls @ 125 mls/hr IV Q24H KATHIA Stop: 02/15/21 22:59 Last Infusion: 02/12/21 23:49 Dose: Infused Documented by: Ceftriaxone Sodium 2,000 mg/ (Dextrose) 70 mls @ 140 mls/hr IV DAILY [facility]; Protocol Stop: 02/18/21 09:59 Last Infusion: 02/13/21 09:08 Dose: Infused Documented by: Levothyroxine Sodium (Levothyroxine Sodium 25 Mcg Tablet) 25 mcg PO DAILYBB [facility] Stop: 03/11/21 06:29 Last Admin: 02/13/21 05:53 Dose: 25 mcg Documented by: Metoclopramide HCl (Metoclopramide Hcl Inj 5 Mg/Ml 2 Ml Vial) 10 mg IV NOW STA Stop: 02/13/21 11:38 Metoprolol Succinate (Metoprolol Succ 25mg Ext Rel Tab) 75 mg PO DAILY [facility] Stop: 03/11/21 08:59 Last Admin: 02/13/21 09:11 Dose: 75 mg Documented by: Ondansetron HCl (Ondansetron Inj 2 Mg/Ml 2 Ml Vial) 4 mg IV Q6H PRN PRN Reason: Nausea Stop: 03/10/21 22:31 Last Admin: 02/13/21 08:11 Dose: 4 mg Documented by: Pantoprazole Sodium (Pantoprazole 40 Mg Tab) 40 mg PO DAILY [facility]; Protocol Stop: 03/11/21 08:59 Last Admin: 02/13/21 09:10 Dose: 40 mg Documented by: Potassium Chloride (Potassium Chloride Crtab 20 Meq Tabcr) 40 meq PO DAILY [facility] Stop: 03/11/21 08:59 Last Admin: 02/13/21 09:20 Dose: 40 meq Documented by: Vitamin D (Cholecalciferol 1,000 Units 25 Mcg Tab) 1,000 units PO QAM [facility] Stop: 03/11/21 08:59 Last Admin: 02/13/21 09:11 Dose: 1,000 units Documented by: Zinc Sulfate (Zinc Sulfate 220 Mg Capsule) 220 mg PO QAM [facility] Stop: 03/11/21 08:59 Last Admin: 02/13/21 09:09 Dose: 220 mg Documented by: ECG Indication: nausea Rhythm: atrial fibrillation Findings: + LAFB and + RBBB PG Care Time/CCT Total # of Minutes Spent Total Time Spent with Patient: Total time spent is greater than 50% in coordination of care (as documented) at patient's floor/unit and/or counseling patient: Coding Level of Care Code 98967 Subseq Hosp Care Lvl 2 Diagnoses Pneumonia due to COVID-19 virus U07.1; J12.82 Nausea & vomiting R11.2 Secondary bacterial pneumonia J15.9 Hypoxia R09.02 Bloody diarrhea R19.7 Non-ST elevation AL (NSTEMI) I21.4 Atrial fibrillation I48.91 BPH w urinary obs/LUTS N40.1; N13.8 GERD (gastroesophageal reflux disease) K21.9 Hypothyroidism (acquired) E03.9 Hyperlipidemia E78.5 Hypertension I10 Chronic pancreatitis K86.1
[2021-02-13 12:32] LABS: Basophils # (auto) 0.01 K/uL (0-0.2); Basophils % (auto) 0.1 %; Hematocrit (blood only) 31.7 % (42-52); Hemoglobin 10.6 g/dL (14.0-18.0); Immature Granulocytes % (auto) 0.6 %; Lymphocytes # (auto) 1.04 K/uL (1.2-3.4); Lymphocytes % (auto) 6.2 %; Mean Corpuscular Hemoglobin 32.2 pg (25-34); Mean Corpuscular Hgb Conc 33.4 g/dL (32-36); Mean Corpuscular Volume 96.4 fL (80-100); Monocytes # (auto) 0.92 K/uL (0.11-0.59); Monocytes % (auto) 5.5 %; Neutrophils # (auto) 14.59 K/uL (1.4-6.5); Neutrophils % (auto) 87.6 %; Platelet Count 208 K/uL (130-400); RDW Standard Deviation 48.8 fL (36.4-46.3); Red Blood Count 3.29 M/uL (4.7-6.1); White Blood Count 16.66 K/uL (4.8-10.8)
[2021-02-13 12:54] LABS: BUN Creatinine Ratio 29.2 (10-20); Calcium 8.2 mg/dl (8.5-10.1); Creatinine Clr Calc Pharmacy 53.9 ml/min; Est GFR (African American) 72.5 ml/min; Est GFR (Non-African American) 62.5 ml/min; Magnesium 2.1 mg/dl (1.8-2.4); Potassium 4.8 mmol/L (3.5-5.1)
[2021-02-13 13:22] LABS: Albumin Globulin Ratio 0.4 (0.9-2); Bilirubin,Total 0.7 mg/dl (0.2-1); Globulin 4.6 gm/dl (2.5-4.0); Total Protein 6.6 gm/dl (6.4-8.2); Troponin I 0.245 ng/ml (0-0.045)
[2021-02-13] MEDS: ATORVASTATIN 40 MG TAB PO SCH (21:50)
[2021-02-13] MEDS: DOXAZosin MESYLATE 4 MG TAB PO SCH (21:51)
[2021-02-14] MEDS: LEVOTHYROXINE SODIUM 25 MCG TABLET PO SCH (05:41)
[2021-02-14] MEDS: ASPIRIN 81 MG ECTAB PO SCH (08:23)
[2021-02-14] MEDS: FINASTERIDE 5 MG TAB PO SCH (08:23)
[2021-02-14] MEDS: METOPROLOL SUCC 25MG EXT REL TAB PO SCH (08:23)
[2021-02-14] MEDS: dexAMETHasone 6 MG in SYRINGE 0 ML IV SCH (08:23)
[2021-02-14] MEDS: APIXABAN 5 MG TABLET PO SCH (08:23)
[2021-02-14] MEDS: PANTOprazole 40 MG TAB PO SCH (08:23)
[2021-02-14] MEDS: POTASSIUM CHLORIDE CRTAB 20 MEQ TABCR PO SCH (08:24)
--- NOTE | 2021-02-14 09:01 | Hospitalist Progress Note ---
Date of Service February 14, 2021 Assessment & Plan (1) Pneumonia due to COVID-19 virus: Plan: Pneumonia due to COVID-19 virus/secondary multifocal bacterial pneumonia/hypoxia day 16 of illness when he was admitted, was fully vaccinated in July 2020 currrently he is stable on room air, has steadily improved over 5 days dexamethasone 6mg IV daily, day 6 too far out for benefit from Remdesivir continue Lasix 40mg PO daily completed Rocephin/Zithromax continue flutter valve, incentive spirometer, needs aggressive pulmonary toilet to mobilize sputum Mucinex lungs are much clearer past three days, rhonchi resolved Dunonebs PRN stop vitamins as he is nauseated (2) Nausea & vomiting: Plan: started on 02/12, unclear etiology, vomiting partially digested food from lunch no obstruction on KUB and he had a moderate to large BM in the afternoon repeat KUB 02/13 also shows no obstruction Zofran PRN give a dose of Reglan 10mg IV no ischemic changes on EKG troponin going down to 0.2, Cr normal, WBC up due to dexamethasone (3) Secondary bacterial pneumonia: Plan: certainly possible, productive cough with thick sputum, two weeks into COVID illness at this point completed Zithromax and Rocephin for 5 days aggressive pulmonary toileting, coughing up sputum, no more bloody streaks (4) Hypoxia: Plan: acute hypoxic respiratory failure due to COVID pneumonia, possible secondary bacterial infection steadily improving, down to 2L today (5) Bloody diarrhea: Plan: Diarrhea became bloody after several days of nonbloody diarrhea Suspect hemorrhoidal bleeding. No further bleeding for three days now resumed apixaban (6) Non-ST elevation HI (NSTEMI): Plan: CAD/hypertension/atrial fibrillation/non-STEMI no chest pain, troponin elevated at 1.9, down to 1.0 on 02/10 suspect this is type II, demand ischemia in setting of hypoxemia patient is not on aspirin, will add it 81mg daily Continue metoprolol succinate 75 mg daily, Klor-Con 40 mEq daily. resume apixaban hold on cardiology consult for now as he is chest pain free, BP stable feel like his issues are more related to COVID and hypoxemia echo with preserved EF, possible mass, thrombus in right atrium? would continue apixaban, get follow up echo as outpatient (7) Atrial fibrillation: Plan: See above continue Toprol for rate control moved to medical floor (8) BPH w urinary obs/LUTS: Plan: Continue doxazosin and dutasteride (9) GERD (gastroesophageal reflux disease): Plan: Famotidine 20 mg IV every 12 hours (10) Hypothyroidism (acquired): Plan: Continue levothyroxine 25 mcg daily (11) Hyperlipidemia: Plan: Continue atorvastatin 80 mg in the evening (12) Hypertension: Plan: See above (13) Chronic pancreatitis: Plan: Noted on CT of abdomen and pelvis advance to heart healthy diet Admission and Anticipated Discharge Date Admission Date: February 08, 2021 Subjective patient was able to go home today, please see d/c summary Physical Exam Physical Exam: General: well developed, elderly male, no acute distress, slightly diaphoretic just after vomiting Neck: supple, trachea midline, normal thyroid Lungs: lungs clear bilaterally, no longer with rhonchi, normal respiratory effort, no accessory muscle use, no distress Heart: regular S1 and S2, no murmur, peripheral pulses normal, capillary refill normal, no edema Abdomen: soft, NT, slightly distended, + BS, tympanic to percussion Extremities: normal in appearance, no cyanosis, no petechiae, strength is 5/5 bilaterally Neuro: awake, cooperative, moves all extremities, no focal motor deficits, CN II-XII intact, sensation in extremities intact, normal speech Skin: warm, dry, no rash, normal turgor Psych: Awake, alert oriented x 3, euthymic affect Results & Data Results & Data ([facility]) Vital Signs (Past 12 Hours) Vital Signs Temp Pulse Resp BP Pulse Ox 02/14/21 08:25 89 L 02/14/21 08:21 36.7 C 71 16 155/92 H 95 02/13/21 23:53 36.6 C 105 H 16 155/69 H 94 Laboratory Results Laboratory Results - last 24 hr 02/13/21 02/13/21 02/13/21 12:23 12:23 21:48 WBC 16.66 H RBC 3.29 L Hgb 10.6 L Hct 31.7 L MCV 96.4 MCH 32.2 MCHC 33.4 RDW Std Deviation 48.8 H RDW Coeff of Milana 14.0 Plt Count 208 MPV 11.0 H Immature Gran % (Auto) 0.6 Neut % (Auto) 87.6 Lymph % (Auto) 6.2 [place] % (Auto) 5.5 Eos % (Auto) 0.0 Baso % (Auto) 0.1 Neut # (Auto) 14.59 H Lymph # (Auto) 1.04 L [place] # (Auto) 0.92 H Eos # (Auto) 0.00 Baso # (Auto) 0.01 Immature Gran # (Auto) 0.10 H Sodium 133 L Potassium 4.8 Chloride 101 Carbon Dioxide 25 Anion Gap 7.0 BUN 31 H Creatinine 1.07 Est Cr Clr Drug Dosing 53.9 Est GFR ( Amer) 72.5 Est GFR (Non-Af Amer) 62.5 BUN/Creatinine Ratio 29.2 H Glucose 219 H POC Glucose 159 H Calcium 8.2 L Magnesium 2.1 Total Bilirubin 0.7 AST 35 ALT 88 H Alkaline Phosphatase 106 Troponin I 0.245 H* Total Protein 6.6 Albumin 2.0 L Globulin 4.6 H Albumin/Globulin Ratio 0.4 L Medications Administered Current Inpatient Medications Acetaminophen (Acetaminophen 325 Mg Tab) 650 mg PO Q4H PRN PRN Reason: Pain or Fever Stop: 03/10/21 22:31 Albuterol (Albut/Ipratrop 3mg/0.5mg Neb 3 Ml Vial) 3 ml NEB Q4 PRN PRN Reason: Shortness Of Breath Or Wheezing Stop: 03/11/21 10:23 Apixaban (Apixaban 5 Mg Tablet) 5 mg PO BID KATHIA Stop: 03/12/21 10:59 Last Admin: 02/14/21 08:23 Dose: 5 mg Documented by: Aspirin (Aspirin 81 Mg Ectab) 81 mg PO QAM KATHIA Stop: 03/14/21 08:59 Last Admin: 02/14/21 08:23 Dose: 81 mg Documented by: Atorvastatin Calcium (Atorvastatin 40 Mg Tab) 80 mg PO QPM KATHIA Stop: 03/10/21 22:59 Last Admin: 02/13/21 21:50 Dose: 80 mg Documented by: Doxazosin Mesylate (Doxazosin Mesylate 4 Mg Tab) 4 mg PO HS KATHIA Stop: 03/10/21 22:59 Last Admin: 02/13/21 21:51 Dose: 4 mg Documented by: Finasteride (Finasteride 5 Mg Tab) 5 mg PO DAILY KATHIA Stop: 03/13/21 08:59 Last Admin: 02/14/21 08:23 Dose: 5 mg Documented by: Guaifenesin/Dextromethorphan (Guaifenesin/Dextrom Syrup 100mg/10mg 5ml Udc) 5 ml PO Q6H PRN PRN Reason: Cough Stop: 03/10/21 22:31 Last Admin: 02/10/21 05:23 Dose: 5 ml Documented by: Dexamethasone 6 mg/ Syringe 1.5 mls @ 1 mls/min IV DAILY KATHIA Stop: 03/11/21 08:59 Last Admin: 02/14/21 08:23 Dose: 1 mls/min Documented by: Levothyroxine Sodium (Levothyroxine Sodium 25 Mcg Tablet) 25 mcg PO DAILYBB [facility] Stop: 03/11/21 06:29 Last Admin: 02/14/21 05:41 Dose: 25 mcg Documented by: Metoprolol Succinate (Metoprolol Succ 25mg Ext Rel Tab) 75 mg PO DAILY KATHIA Stop: 03/11/21 08:59 Last Admin: 02/14/21 08:23 Dose: 75 mg Documented by: Ondansetron HCl (Ondansetron Inj 2 Mg/Ml 2 Ml Vial) 4 mg IV Q6H PRN PRN Reason: Nausea Stop: 03/10/21 22:31 Last Admin: 02/13/21 08:11 Dose: 4 mg Documented by: Pantoprazole Sodium (Pantoprazole 40 Mg Tab) 40 mg PO DAILY [facility]; Protocol Stop: 03/11/21 08:59 Last Admin: 02/14/21 08:23 Dose: 40 mg Documented by: Potassium Chloride (Potassium Chloride Crtab 20 Meq Tabcr) 40 meq PO DAILY [facility] Stop: 03/11/21 08:59 Last Admin: 02/14/21 08:24 Dose: 40 meq Documented by: PG Care Time/CCT Total # of Minutes Spent Total Time Spent with Patient: Total time spent is greater than 50% in coordination of care (as documented) at patient's floor/unit and/or counseling patient: Coding Level of Care Code None Diagnoses Pneumonia due to COVID-19 virus U07.1; J12.82 Nausea & vomiting R11.2 Secondary bacterial pneumonia J15.9 Hypoxia R09.02 Bloody diarrhea R19.7 Non-ST elevation HI (NSTEMI) I21.4 Atrial fibrillation I48.91 BPH w urinary obs/LUTS N40.1; N13.8 GERD (gastroesophageal reflux disease) K21.9 Hypothyroidism (acquired) E03.9 Hyperlipidemia E78.5 Hypertension I10 Chronic pancreatitis K86.1
[2021-02-14] MEDS: guaiFENesin/DEXTROM SYRUP 100MG/10MG 5ML UDC PO PRN (12:44)
--- NOTE | 2021-02-14 16:18 | Discharge Summary ---
Date of Service February 14, 2021 Admission HPI Per Admitting Provider The patient is a an 85-year-old male with a past medical history including atrial fibrillation, BPH with LUTS, hyperlipidemia, hypothyroidism, hypertension, GERD and a diagnosis of COVID-19 infection on 01/24. He was seen this morning at the [place] emergency department, was placed on Augmentin, which is taken 1 dose so far, for what he was told was viral pneumonia. The patient is on Eliquis twice daily, and did take his dose this morning. He has been vaccinated for COVID-19. Work-up in the emergency department included the following abnormal laboratories: INR 2.0, albumin 2.2, glucose 172, AST 142, ALT 194, troponin 1.920, total bilirubin 1.3. COVID-19 testing in the emergency department was positive this evening Pulse ox was 88% on room air, improving to 92% on [address] of abdomen and pelvis shows multi focal patchy airspace opacities within the lung bases consistent with viral pneumonia. Evidence for chronic pancreatitis. CT scan of chest without contrast: Multifocal airspace opacities consistent with moderate bilateral pneumonia. Trace bilateral pleural effusions and a trace pericardial effusion. A few small scattered nodular densities within the lungs with the largest in the right lower lobe measuring 11 mm, likely corresponding to patient's pneumonia. Principal Diagnosis Acute hypoxic respiratory failure due to COVID 19, secondary bacterial pneumonia Discharge Exam General: well developed, well nourished, elderly male, no acute distress, comfortable Neck: supple, trachea midline, normal thyroid Lungs: clear to auscultation bilaterally, normal respiratory effort, no accessory muscle use, no distress Heart: regular S1 and S2, no murmur, peripheral pulses normal, capillary refill normal, no edema Abdomen: soft, NT, slightly distended, tympanic to percussion, + BS Extremities: normal in appearance, no cyanosis, no petechiae, strength is 5/5 bilaterally Neuro: awake, cooperative, moves all extremities, no focal motor deficits, CN II-XII intact, sensation in extremities intact, normal speech Skin: warm, dry, no rash, normal turgor Psych: Awake, alert oriented x 3, euthymic affect Discharge Data Allergies Allergy/AdvReac Type Severity Reaction Status Date / Time sulfamethoxazole Allergy Intermediate BLISTER--PER Verified 02/08/21 17:33 [From Bactrim] MED LIST trimethoprim [From Bactrim] Allergy Intermediate BLISTER--PER Verified 02/08/21 17:33 MED LIST bee venom protein (honey bee) Allergy Unknown ON MED LIST Verified 02/08/21 17:33 Consultations 02/08/21 19:33 ED Decision to Admit Stat Ordered Studies 02/08/21 18:16 CT abd pelvis IV con only Stat 02/08/21 19:33 CT chest diagnostic wo con Stat Hospital Course (1) Pneumonia due to COVID-19 virus: Pneumonia due to COVID-19 virus/secondary multifocal bacterial pneumonia/hypoxia day 16 of illness when he was admitted, was fully vaccinated in July 2020 currrently he is stable on room air, has steadily improved over 6 days 2 step on discharge, showed no oxygen need on exertion either dexamethasone 6mg IV daily, day 7 will complete 3 more days of oral dexamethasone at home too far out for benefit from Remdesivir treated with Lasix to keep lungs dry, resume normal Lasix regimen completed Rocephin/Zithromax continue flutter valve, incentive spirometer, needs aggressive pulmonary toilet to mobilize sputum Mucinex lungs are much clearer past four days, rhonchi resolved Dunonebs PRN stop vitamins as he is nauseated (2) Nausea & vomiting: started on 02/12, unclear etiology, vomiting partially digested food from lunch no obstruction on KUB and he had a moderate to large BM in the afternoon repeat KUB 02/13 also shows no obstruction Zofran PRN give a dose of Reglan 10mg IV no ischemic changes on EKG troponin going down to 0.2, Cr normal, WBC up due to dexamethasone ate dinner on 02/13 and tolerated three meals on 02/14, felt good and wanted to go home (3) Secondary bacterial pneumonia: certainly possible, productive cough with thick sputum, two weeks into COVID illness at this point completed Zithromax and Rocephin for 5 days aggressive pulmonary toileting, coughing up sputum, no more bloody streaks (4) Hypoxia: acute hypoxic respiratory failure due to COVID pneumonia, possible secondary bacterial infection steadily improving, down to room air today, passed 2 step (5) Bloody diarrhea: Diarrhea became bloody after several days of nonbloody diarrhea Suspect hemorrhoidal bleeding. No further bleeding for three days now resumed apixaban (6) Non-ST elevation UT (NSTEMI): CAD/hypertension/atrial fibrillation/non-STEMI no chest pain, troponin elevated at 1.9, down to 1.0 on 02/10 suspect this is type II, demand ischemia in setting of hypoxemia patient is not on aspirin, will add it 81mg daily Continue metoprolol succinate 75 mg daily, Klor-Con 40 mEq daily. resume apixaban hold on cardiology consult for now as he is chest pain free, BP stable feel like his issues are more related to COVID and hypoxemia echo with preserved EF, possible mass, thrombus in right atrium? would continue apixaban, get follow up echo as outpatient, refer to cardiology outpatient (7) Atrial fibrillation: See above continue Toprol for rate control moved to medical floor (8) BPH w urinary obs/LUTS: Continue doxazosin and dutasteride (9) GERD (gastroesophageal reflux disease): Famotidine 20 mg IV every 12 hours (10) Hypothyroidism (acquired): Continue levothyroxine 25 mcg daily (11) Hyperlipidemia: Continue atorvastatin 80 mg in the evening (12) Hypertension: See above (13) Chronic pancreatitis: Noted on CT of abdomen and pelvis advance to heart healthy diet Home Health Attestation I certify that this patient is under my care and that I, or a physicians physician assistant primary care working with me, had a face to-face encounter that meets the home health [id number] encounter requirements with this patient. The encounter with the patient was in whole, or in part, for the following medical condition, which is the primary reason for home health care (list medical condition): I certify that, based on my findings, the following services are medically necessary home health services: My clinical findings support the need for the above services because: Further, I certify that my clinical findings support that this patient is homebound (i.e. absences from home require considerable and taxing effort and are for medical reasons or latter day services or infrequently or of short duration when for other reasons) because: Certification for Home Health Services: Based on the above findings, I certify that this patient is confined to the home and needs intermittent correction care, physical therapy and/or speech therapy or continues to need occupational therapy. The patient is under my care, and I have initiated the establishment of the plan of care. This patient will be followed by a physician who will periodically review the plan of care. Total Time Total Time Spent Total Time Spent (In Minutes): 33 minutes Total Time Includes: Examination of the Patient, Discharge Planning, Medication Reconciliation and Communication With Other Providers Discharge Plan Discharge Items Patient Disposition: Home - Self-Care Reason For Visit: COVID 19 PNEUMONIA Discharge Diagnosis: COVID 19 pneumonia Acute hypoxic respiratory failure Condition on Discharge: Good Goals: continue to improve strength, stay well nourished complete course of dexamethasone Activity: Resume your previous activity Non-emergency contact: Primary Care Provider Call non-emergency contact if: you have any medication questions and your symptoms worsen Follow-up/Referrals: Jakob Freeman MD [Primary Care Provider] - (one week) Diet: Heart Healthy Addtl Attending Provider Instructions: Medications: - DEXAMETHASONE: 6mg daily for three more days - ASPIRIN: added this, 81mg daily, due to slight rise in troponin when you were admitted, continue indefinitely, safe to take with Eliquis COVID 19 pneumonia, acute hypoxic respiratory failure, possible bacterial pneumonia completed 7 days of antibiotics completed 7 days of dexamethasone, will need three more days at home stay well nourished, well hydrated resume your other home medications use flutter valve (green or blue device) 3 to 4 times a day to help mobilize sputum, use for the next few days use incentive spirometer for next few days, take deep breaths, expand lungs follow up with PCP, machine set up regarding an abnormal finding on echo in the right atrium they can repeat echo as outpatient in a few weeks and get recommendations will send discharge summary to PCP will arrange home therapy, home nursing visit Pending Studies at Discharge: No Stand-Alone Forms: My [facility] [employer], Smoking Cessation Medications and DC Order Prescriptions: New aspirin 81 mg Tablet,Delayed Release (Dr/Ec) 81 mg PO QAM Qty: 30 RF: 3 dexamethasone 4 mg tablet 6 mg PO DAILY 3 Days Qty: 5 RF: 0 Continued furosemide 40 mg tablet See Rx Instructions .ROUTE .COMPLEX RF: 0 atorvastatin 80 mg tablet 80 mg PO QPM RF: 0 acetaminophen [Tylenol] 325 mg Tablet 650 mg PO DIRECTED PRN (Reason: Fever) RF: 0 metoprolol succinate 50 mg tablet extended release 24 hr 75 mg PO DAILY RF: 0 diphenoxylate-atropine 2.5-0.025 mg tablet 1 tab PO DIRECTED PRN (Reason: Diarrhea) RF: 0 levothyroxine 25 mcg tablet 25 mcg PO DAILYBB RF: 0 potassium chloride [Klor-Con M20] 20 mEq tablet,ER particles/crystals 40 meq PO DAILY RF: 0 lansoprazole 15 mg Capsule,Delayed Release(Dr/Ec) 15 mg PO DAILY RF: 0 doxazosin 4 mg tablet 4 mg PO DAILY RF: 0 dutasteride 0.5 mg capsule 0.5 mg PO DAILY RF: 0 PreserVision AREDS 7,160 unit- 113 mg-100 unit Tablet 1 tab PO BID RF: 0 Eliquis 5 mg tablet 5 mg PO BID RF: 0 guaifenesin [Mucinex] 600 mg Tablet Extended Release 12hr 600 mg PO Q12H PRN (Reason: Congestion) RF: 0 Discontinued amoxicillin-pot clavulanate 875-125 mg tablet 1 tab PO BID RF: 0 Discharge Orders: Discharge Order (Routine); Ordered 02/14/21 Ordered By: Binu Osuna Admission Data Admit Date/Time: 02/08/21 21:11 Attending Provider: Binu Osuna Admit Provider: Riley Lopez Primary Care Provider: Jakob Freeman Other Providers: Riley Lopez Other Interventions: Discharge Summary Assessment (RN) Last Done: 02/14/21 16:25 Coding Level of Care Code D/C DAY MANAGEMENT >30 MINS Diagnoses Pneumonia due to COVID-19 virus U07.1; J12.82 Nausea & vomiting R11.2 Secondary bacterial pneumonia J15.9 Hypoxia R09.02 Bloody diarrhea R19.7 Non-ST elevation UT (NSTEMI) I21.4 Atrial fibrillation I48.91 BPH w urinary obs/LUTS N40.1; N13.8 GERD (gastroesophageal reflux disease) K21.9 Hypothyroidism (acquired) E03.9 Hyperlipidemia E78.5 Hypertension I10 Chronic pancreatitis K86.1
--- NOTE | 2021-02-14 19:41 | Electrocardiogram Report ---
Test Reason : Blood Pressure : / mmHG Vent. Rate : 078 BPM Atrial Rate : 069 BPM P-R Int : 000 ms QRS Dur : 132 ms QT Int : 444 ms P-R-T Axes : 000 -53 082 degrees QTc Int : 506 ms Atrial fibrillation Right bundle branch block Left anterior fascicular block Bifascicular block Cannot rule out Inferior infarct (masked by fascicular block?) , age undetermined Abnormal ECG When compared with ECG of 10-FEB-2021 06:03, Atrial fibrillation has replaced Electronic ventricular pacemaker Confirmed by Steven Hughes ([id number]) on 02/14/2021 7:41:26 PM Referred By: REFERRED SELF Confirmed By:Steven Hughes
== END 2021-02-14 17:19 | disposition home health service (06) | DRG 177 ==
LOC: ED 17:18 → SUATTDRO 21:11 → 2S 21:11 → 3N 02-11 10:55 → 3W 02-13 18:39
DX: Z88.1 Allergy status to other antibiotic agents; N40.1 Benign prostatic hyperplasia with lower urinary tract symptoms; J12.82 Pneumonia due to coronavirus disease 2019; U07.1 COVID-19; I48.20 Chronic atrial fibrillation, unspecified; I10 Essential (primary) hypertension; K86.1 Other chronic pancreatitis; I25.10 Atherosclerotic heart disease of native coronary artery without angina pectoris; E03.9 Hypothyroidism, unspecified; K21.9 Gastro-esophageal reflux disease without esophagitis; I21.A1 Myocardial infarction type 2; Z79.890 Hormone replacement therapy; J15.9 Unspecified bacterial pneumonia; J96.01 Acute respiratory failure with hypoxia; Z91.09 Other allergy status, other than to drugs and biological substances; Z88.2 Allergy status to sulfonamides; E78.5 Hyperlipidemia, unspecified; Z91.030 Bee allergy status; R11.2 Nausea with vomiting, unspecified; Z79.01 Long term (current) use of anticoagulants; Z79.899 Other long term (current) drug therapy; K64.9 Unspecified hemorrhoids; N13.8 Other obstructive and reflux uropathy

== ENCOUNTER 2023-06-07 09:30 | Observation (INO) ==
[2023-06-07 10:26] LABS: Hematocrit (blood only) 29.8 % (42.0-52.0); Hemoglobin 9.4 g/dl (14.0-18.0); Mean Corpuscular Hemoglobin 32.4 pg (25.0-34.0); Mean Corpuscular Hgb Conc 31.5 g/dL (32.0-36.0); Mean Corpuscular Volume 102.8 fL (80.0-100.0); Mean Platelet Volume 11.5 fL (9.4-12.4); Platelet Count 156 K/uL (130-400); RDW Coefficient of Variation 15.2 % (11.5-14.5); RDW Standard Deviation 57.4 fL (36.4-46.3); White Blood Count 8.22 K/ul (4.8-10.8)
[2023-06-07 10:27] LABS: INR 1.4 (0.9-1.1); Partial Thromboplastin Ratio 1.1; Partial Thromboplastin Time 30 Seconds (21-31); Prothrombin Time 14.9 Seconds (9.0-12.0)
[2023-06-07 10:30] LABS: Albumin Level 3.7 gm/dl (3.4-5.0); Bilirubin,Total 1.3 mg/dl (0.2-1.0); Calcium 8.5 mg/dl (8.6-10.3); Potassium 4.1 mmol/L (3.5-5.1)
[2023-06-07 10:36] LABS: Albumin Globulin Ratio 1.2 (0.9-2); BUN Creatinine Ratio 29.9 (10-20); Creatinine Clr Calc Pharmacy 55.9 ml/min; Est GFR (African American) 79.9 ml/min; Est GFR (Non-African American) 68.9 ml/min; Total Protein 6.7 gm/dl (6.0-8.3)
[2023-06-07 10:39] LABS: Troponin I High Sensitivity 15.6 pg/ml (0-20)
--- NOTE | 2023-06-07 11:28 | Electrocardiogram Report ---
Test Reason : Blood Pressure : / mmHG Vent. Rate : 070 BPM Atrial Rate : 000 BPM P-R Int : 000 ms QRS Dur : 126 ms QT Int : 462 ms P-R-T Axes : 000 100 -69 degrees QTc Int : 498 ms Paced ventricular rhythm Abnormal ECG Confirmed by Scott Galdamez ([id number]) on 06/07/2023 11:28:00 AM Referred By: Confirmed By:Monroe Galdamez
--- NOTE | 2023-06-07 11:37 | Emergency Department Note ---
Impression & Plan Acute GI bleeding ED Provider Note NAME: ROSA ELENA GUALLPA AGE: 88 SEX: M : 1935 ARRIVES VIA: Walk-In INFORMANT: Patient, ED PROVIDER(S): Pamela Fields MD CHIEF COMPLAINT: HPI: This an 88-year-old male with history of atrial fibrillation on Eliquis presenting for black tarry stools. Patient states that since Monday he has had numerous episode of black and tarry stools. He has not had any normal stools in these past 4 to 5 days. He notes he is never had a GI bleed in the past. He notes no abdominal pain, dizziness, lightheadedness. He did take Eliquis this morning. Otherwise he went to emergency department yesterday and was to be admitted however they do not have GI. The patient not want to wait and came here and this morning instead. Hemoglobin yesterday 10.2. ROS: See above HPI for pertinent positives & negatives. A total of 10 systems reviewed and were otherwise negative. PAST MEDICAL HISTORY: See Below PAST SURGICAL HISTORY: See Below FAMILY HISTORY: See Below SOCIAL HISTORY: See Below HOME MEDICATIONS: See Below ALLERGIES: See Below VITALS: See Below PHYSICAL EXAMINATION: [General: resting comfortably in no acute distress Head: Normocephalic and atraumatic Eyes: Normal inspection, extraocular muscles intact Ear, nose, throat: Normal external exam Neck: Normal range of motion Respiratory: lungs clear to auscultation bilaterally Cardiovascular: Regular rate/rhythm, no murmur GI: soft, nontender, no guarding or rebound Extremities: nontender, moves all extremities Neuro: The patient awake and alert, appropriately conversive, no focal deficits, symmetric faces Skin: Warm, dry, and intact MEDICAL DECISION MAKING: This is an 88-year-old male with history of A-fib on Eliquis presented with black tarry stools. Patient hemoglobin 10.2. Today his hemoglobin is 9.4. He is downtrending and still on Eliquis. -Patient had hemoglobin drop in the past 24 hours -Patient is on Eliquis, he took this morning -Based on current symptoms, will require admission due to upper GI bleed, will do Protonix while here -Patient accepted to hospital service here Differential diagnosis: Upper versus lower GI bleed ER treatment provided: See below Diagnostics interpreted by me: ECG: ECG independently interpreted by me with ventricularly paced, rate of 70, prolonged QRS normal QTc, no ST segment elevations consistent with STEMI criteria Cardiac Monitoring: An order was placed for continuous cardiac monitoring. The monitor shows a rate of 70 with sinus rhythm. Laboratory studies: As stated above and show below. Past Med/Surg History Medical History (Updated 06/07/23 @ 19:02 by Pamela Fields MD) History of stroke Nausea & vomiting Chronic pancreatitis Hypertension Hypothyroidism (acquired) GERD (gastroesophageal reflux disease) BPH w urinary obs/LUTS Atrial fibrillation Hyperlipidemia Secondary bacterial pneumonia Hypoxia Bloody diarrhea Non-ST elevation [place] (NSTEMI) Social History Smoking Status: Never smoker Do You Dip or Chew Tobacco: No; Hx Alcohol Use: Yes Alcohol type: beer Hx Substance Use: No Preferred Language: [place] Communication Ability: Effective Glaze Handler Required: No Beliefs That Will Affect Care: None Current Living Situation: Spouse Current Living Situation Comment: Lives independently at home with Merari Feels Safe at Home: Yes Safety Concerns: Feels Safe At This Time Assistive Devices: None Allergies Allergies Allergy/AdvReac Type Severity Reaction Status Date / Time sulfamethoxazole Allergy Intermediate BLISTER--PER Verified 06/07/23 13:01 [From Bactrim] MED LIST trimethoprim [From Bactrim] Allergy Intermediate BLISTER--PER Verified 06/07/23 13:01 MED LIST bee venom protein (honey bee) Allergy Unknown ON MED LIST Verified 06/07/23 13:01 Home Meds Home Medications Medication Instructions Recorded Confirmed acetaminophen 325 mg tablet 650 mg PO DIRECTED PRN Fever Or 02/08/21 06/07/23 (Tylenol) Pain apixaban 5 mg tablet (Eliquis) 5 mg PO BID 02/08/21 06/07/23 atorvastatin 80 mg tablet 80 mg PO QPM 02/08/21 06/07/23 doxazosin 4 mg tablet 4 mg PO DAILY 02/08/21 06/07/23 dutasteride 0.5 mg capsule 0.5 mg PO DAILY 02/08/21 06/07/23 furosemide 40 mg tablet See Rx Instructions .Route .COMPLEX 02/08/21 06/07/23 metoprolol succinate 50 mg 75 mg PO QPM 02/08/21 06/07/23 tablet,extended release 24 hr vitamins A,C,S-gopw-yfdksk 2,148 1 tab PO BID 02/08/21 06/07/23 mcg-113 mg-45 mg-17.4 mg tablet (PreserVision AREDS) calcium carbonate 200 mg calcium 400 mg PO BID PRN .gi upset 06/07/23 06/07/23 (500 mg) chewable tablet (Tums) levothyroxine 50 mcg tablet 50 mcg PO DAILY 06/07/23 06/07/23 (Synthroid) potassium chloride 20 mEq 20 meq PO BID 06/07/23 06/07/23 tablet,extended release(part/cryst) (Klor-Con M) Previous Rx's Medication Instructions Recorded aspirin 81 mg tablet,delayed 81 mg PO QAM #30 tabs 02/14/21 release Results & Data (ED) Vital Signs Vital Signs - 24 hr 06/07/23 09:32 06/07/23 12:32 06/07/23 12:47 Temperature 36.6 C Temperature Source Oral Pulse Rate 70 Pulse Rate [Apical] 70 Respiratory Rate 20 Respiratory Effort / Characteristics Non-Labored Spontaneous Respiratory Depth Normal Blood Pressure [Right Arm] 148/93 H Blood Pressure Mean [Right Arm] 111 Pulse Oximetry 100 Oxygen Delivery Method Room Air Sepsis Recent Fever Within 48 Hours No Sepsis New/Unexplained Change in Mental Status N/A Sepsis Action Taken by Nursing No Action Required Laboratory Data 06/07/23 16:18 06/07/23 09:42 Lab Results 06/07/23 06/07/23 Range/Units 09:42 09:47 WBC 8.22 (4.8-10.8) K/ul RBC 2.90 L (4.70-6.10) M/uL Hgb 9.4 L (14.0-18.0) g/dl Hct 29.8 L (42.0-52.0) % MCV 102.8 H (80.0-100.0) fL MCH 32.4 (25.0-34.0) pg MCHC 31.5 L (32.0-36.0) g/dL RDW Std Deviation 57.4 H (36.4-46.3) fL RDW Coeff of Milana 15.2 H (11.5-14.5) % Plt Count 156 (130-400) K/uL MPV 11.5 (9.4-12.4) fL PT 14.9 H (9.0-12.0) Seconds INR 1.4 H (0.9-1.1) APTT 30 (21-31) Seconds PTT Ratio 1.1 Sodium 139 (136-145) mmol/L Potassium 4.1 (3.5-5.1) mmol/L Chloride 105 (98-107) mmol/L Carbon Dioxide 26 (21-32) mmol/L Anion Gap 8 (3-11) BUN 29 H (6-23) mg/dl Creatinine 0.97 (0.6-1.4) mg/dl Est Cr Clr Drug Dosing 55.9 ml/min Est GFR ( Amer) 79.9 ml/min Est GFR (Non-Af Amer) 68.9 ml/min BUN/Creatinine Ratio 29.9 H (10-20) Glucose 151 H (70-99(Fasting)) mg/dl Calcium 8.5 L (8.6-10.3) mg/dl Iron Cancelled TIBC Cancelled Unsaturated IBC Cancelled Transferrin % Sat Cancelled Ferritin Cancelled Total Bilirubin 1.3 H (0.2-1.0) mg/dl AST 27 (13-39) U/L ALT 19 (7-52) U/L Alkaline Phosphatase 75 (34-104) U/L Troponin I High Sens 15.6 (0-20) pg/ml Total Protein 6.7 (6.0-8.3) gm/dl Albumin 3.7 (3.4-5.0) gm/dl Globulin 3.0 (2.5-4.0) gm/dl Albumin/Globulin Ratio 1.2 (0.9-2) Vitamin B12 253 (180-914) pg/ml Folate 16.29 (>5.38) ng/ml Blood Type O Positive Antibody Screen NEGATIVE Administered Medications Discontinued Medications Pantoprazole Sodium 40 mg/ (Syringe) 10 mls @ 5 mls/min IV NOW ONE Stop: 06/07/23 11:38 Last Admin: 06/07/23 13:10 Dose: 5 mls/min Documented By: Discharge Plan Visit Data Chief Complaint: GI Assessment Stated Complaint: BLACK STOOL, POSSIBLE BLEED ED Provider: Pamela Fields Discharge Problem: Acute GI bleeding Patient Disposition: Admitted As Inpatient Discharge Instructions Interventions: ED Discharge Assessment Last Done: 06/07/23 14:31
--- NOTE | 2023-06-07 12:29 | History & Physical Report ---
Date of Service June 07, 2023 Assessment & Plan (1) Melena: Plan: Suspect underlying gastritis as patient taken tums regularly for the last 3 months. No NSAID use. Stop aspirin - unclear reasons he is on this unless prior stroke not suspected to be from a. fib. Stop Eliquis - ideally EGD to be performed as inpatient to enable resumption of Eliquis as soon as possible given history of a. fib causing stroke Pantoprazole 40mg IV BID Serial H&H q6h - if next two stable will get daily labs Clear liquids today, NPO after midnight Consult gastroenterology (2) Acute blood loss anemia: Plan: Suspected based on melena as above. Macrocytosis therefore B12 and folate will also be taken with next set of labs Given suspected chronic bleed in addition will take iron studies with next labs Transfuse less than 7 (3) Atrial fibrillation: Plan: Eliquis on hold due to suspected GI bleed as above Continue metoprolol for rate control (4) Chronic congestive heart failure: Plan: Currently appears euvolemic, continue usual Lasix dosing Continue metoprolol succinate (5) BPH w urinary obs/LUTS: Plan: Continue doxazosin and dutasteride (6) Hyperlipidemia: Plan: Continue atorvastatin (7) Hypothyroidism (acquired): Plan: Repeat TSH with a.m. labs Continue levothyroxine 50 mcg p.o. daily (8) Acute GI bleeding: Plan VTE prophylaxis - SCDs, restart Eliquis when able from a bleeding standpoint Diet - clear liquid, low-sodium, n.p.o. after midnight Disposition - admit to med/surg Admission and Anticipated Discharge Date Admission Date: June 07, 2023 History of Present Illness Chief Complaint: Melena Primary Care Provider: Jakob Freeman MD Nas Segal is an 88-year-old male with atrial fibrillation history of stroke who presents to the ER with black tarry stools since Monday. He denies any history of heartburn but reports taking Tums 3 times a day for the last year for mild epigastric pain. He has not taken Tums for the last 2 days. Black tarry stools started on Monday. He has not had a bowel movement for the last 2 days. No nausea, vomiting, abdominal pain, chest pain, shortness of breath, dizziness. He was seen at [facility] emergency room yesterday and was given the option of admission however there was no gastroenterology coverage so he would have to wait for a bed at another hospital. Therefore he decided to go home and he was not told to stop the Eliquis or aspirin - therefore last took this this morning at 11:30 AM while in the waiting room. He takes Eliquis for atrial fibrillation with history of stroke. Unknown why he takes aspirin in addition to Eliquis other than his history of stroke which he reports was suspected due to his atrial fibrillation. He has never had melena or a gastrointestinal bleed in the past. He denies any NSAID use. Allergies Allergy/AdvReac Type Severity Reaction Status Date / Time sulfamethoxazole Allergy Intermediate BLISTER--PER Verified 06/07/23 13:01 [From Bactrim] MED LIST trimethoprim [From Bactrim] Allergy Intermediate BLISTER--PER Verified 06/07/23 13:01 MED LIST bee venom protein (honey bee) Allergy Unknown ON MED LIST Verified 06/07/23 13:01 Home Medications Medication Instructions Recorded Confirmed Type acetaminophen 325 mg tablet 650 mg PO DIRECTED PRN Fever Or 02/08/21 06/07/23 History (Tylenol) Pain apixaban 5 mg tablet (Eliquis) 5 mg PO BID 02/08/21 06/07/23 History atorvastatin 80 mg tablet 80 mg PO QPM 02/08/21 06/07/23 History doxazosin 4 mg tablet 4 mg PO DAILY 02/08/21 06/07/23 History dutasteride 0.5 mg capsule 0.5 mg PO DAILY 02/08/21 06/07/23 History furosemide 40 mg tablet See Rx Instructions .Route .COMPLEX 02/08/21 06/07/23 History metoprolol succinate 50 mg 75 mg PO QPM 02/08/21 06/07/23 History tablet,extended release 24 hr vitamins A,C,I-eyvb-mickdy 2,148 1 tab PO BID 02/08/21 06/07/23 History mcg-113 mg-45 mg-17.4 mg tablet (PreserVision AREDS) aspirin 81 mg tablet,delayed 81 mg PO QAM #30 tabs 02/14/21 06/07/23 Rx release calcium carbonate 200 mg calcium 400 mg PO BID PRN .gi upset 06/07/23 06/07/23 History (500 mg) chewable tablet (Tums) levothyroxine 50 mcg tablet 50 mcg PO DAILY 06/07/23 06/07/23 History (Synthroid) potassium chloride 20 mEq 20 meq PO BID 06/07/23 06/07/23 History tablet,extended release(part/cryst) (Klor-Con M) Past Med/Surg History Medical History (Updated 06/07/23 @ 14:06 by Nura Deshpande MD) History of stroke Nausea & vomiting Chronic pancreatitis Hypertension Hypothyroidism (acquired) GERD (gastroesophageal reflux disease) BPH w urinary obs/LUTS Atrial fibrillation Hyperlipidemia Secondary bacterial pneumonia Hypoxia Bloody diarrhea Non-ST elevation [place] (NSTEMI) Social History Smoking Status: Never smoker Hx Alcohol Use: Yes Alcohol type: beer Hx Substance Use: No Preferred Language: Luxembourger Communication Ability: Effective Extrusion Utility Worker Required: No Beliefs That Will Affect Care: None Current Living Situation: Spouse Current Living Situation Comment: Lives independently at home with , Merari Feels Safe at Home: Yes Assistive Devices: Oxygen - Continuous Review of Systems Review of Systems: All systems reviewed & are unremarkable except as noted in HPI & below Physical Exam Constitutional: WD/WN, vitals as above Eyes: + anicteric sclerae; normal pupil size ENMT: external ear and nose normal, oropharynx normal Respiratory: normal respiratory effort, lungs clear to auscultation Cardiovascular: Rate/Rhythm: regular rate and regular rhythm Heart Sounds: + murmur (Systolic 3/6 throughout, loudest and apex) Vessels: no JVD Extremities: normal capillary refill; no calf tenderness and no pedal edema Gastrointestinal (Abdomen): normal bowel sounds, soft, nontender, no hepatosplenomegaly Musculoskeletal: no cyanosis or clubbing, extremities motor strength 5/5 Skin: no rashes, warm and dry Neurologic: moves all extremities and awake; not confused Psychiatric: A+Ox3, euthymic affect Results & Data Results & Data Vital Signs (Past 12 Hours) No vital signs recorded when presented for admission Laboratory Results Abnormal lab results 06/07/23 Range/Units 09:42 RBC 2.90 L (4.70-6.10) M/uL Hgb 9.4 L (14.0-18.0) g/dl Hct 29.8 L (42.0-52.0) % MCV 102.8 H (80.0-100.0) fL MCHC 31.5 L (32.0-36.0) g/dL RDW Std Deviation 57.4 H (36.4-46.3) fL RDW Coeff of Milana 15.2 H (11.5-14.5) % PT 14.9 H (9.0-12.0) Seconds INR 1.4 H (0.9-1.1) BUN 29 H (6-23) mg/dl BUN/Creatinine Ratio 29.9 H (10-20) Glucose 151 H (70-99(Fasting)) mg/dl Calcium 8.5 L (8.6-10.3) mg/dl Total Bilirubin 1.3 H (0.2-1.0) mg/dl Medications Administered ER medications given: Pantoprazole 40 mg IV ECG Rate (beats per minute): 70 Rhythm: atrial fibrillation and other (Paced ventricular) Findings: no acute ischemic change Comparison ECG Date: from (February 13, 2021) Change: the following changes noted (Pacing is new) Code Status & VTE Plan VTE Prophylaxis Plan VTE Prophylaxis will be ordered: Yes Reason for no VTE drug order: Contraindicated PG Care Time/CCT Total # of Minutes Spent Total Time Spent with Patient: Total time spent is greater than 50% in coordination of care (as documented) at patient's floor/unit and/or counseling patient: Coding Level of Care Code 74681 INT INP/OBS CARE 2/55MIN Diagnoses Melena K92.1 Acute blood loss anemia D62 Atrial fibrillation I48.91 Chronic congestive heart failure I50.9 BPH w urinary obs/LUTS N40.1; N13.8 Hyperlipidemia E78.5 Hypothyroidism (acquired) E03.9 Acute GI bleeding K92.2
[2023-06-07] MEDS: PANTOprazole 40 MG in SYRINGE 0 ML IV ONE (13:10)
--- NOTE | 2023-06-07 14:11 | XRay Report ---
XR chest 1V portable HISTORY: 88 years-old Male shortness of breath, UGI bleed acute shortness of breath COMPARISON: 02/08/2021 TECHNIQUE: AP view of the chest FINDINGS: Cardiac silhouette is enlarged. Single lead left subclavian pacer. No pneumothorax, large pleural eff usion or lobar airspace consolidation. The bones appear grossly intact. IMPRESSION: Cardiomegaly without acute process. ACT 112: Negative or not required by law. The above report was generated using voice recognition software. It may contain grammatical, syntax o r spelling errors. Electronically signed by: Julián Velasquez M.D. 06/07/2023 2:08 PM
[2023-06-07 16:44] LABS: Hemoglobin 9.1 g/dl (14.0-18.0); Immature Retic Fraction 17.3 % (2.3-15.9); Reticulated Hemoglobin 31.4 pg (28.2-36.6); Reticulocyte % 3.2 % (0.50-2.00); Reticulocytes # 0.09 10^6/uL (0.020-0.100)
[2023-06-07 17:08] LABS: Folate (Folic Acid),Ser orPlas 16.29 ng/ml (>5.38)
[2023-06-07 18:09] LABS: Ferritin 22.1 ng/ml (8-388)
[2023-06-07] MEDS ORDERED: ACETAMINOPHEN 325 MG TAB PO PRN (18:32)
[2023-06-07] MEDS: POTASSIUM CHLORIDE CRTAB 20 MEQ TABCR PO SCH (19:59)
[2023-06-07] MEDS: ATORVASTATIN 40 MG TAB PO SCH (19:59)
[2023-06-07] MEDS: METOPROLOL SUCC 25MG EXT REL TAB PO SCH (20:00)
[2023-06-07] MEDS: PANTOprazole 40 MG in SYRINGE 0 ML IV SCH (20:01)
[2023-06-07 23:15] LABS: Hematocrit (blood only) 28.2 % (42.0-52.0)
[2023-06-08] MEDS: LEVOTHYROXINE SODIUM 50 MCG TABLET PO SCH (05:55)
[2023-06-08 07:30] LABS: Hematocrit (blood only) 30.1 % (42.0-52.0); Hemoglobin 9.6 g/dl (14.0-18.0); Mean Corpuscular Hemoglobin 31.6 pg (25.0-34.0); Mean Corpuscular Hgb Conc 31.9 g/dL (32.0-36.0); Mean Platelet Volume 11.2 fL (9.4-12.4); Platelet Count 175 K/uL (130-400); RDW Coefficient of Variation 14.8 % (11.5-14.5); RDW Standard Deviation 53.9 fL (36.4-46.3); Red Blood Count 3.04 M/uL (4.70-6.10); White Blood Count 8.08 K/ul (4.8-10.8)
[2023-06-08] MEDS: SODIUM CHLORIDE 0.9% 1,000 ML IV SCH (08:23)
[2023-06-08 08:25] LABS: Calcium 8.8 mg/dl (8.6-10.3); Creatinine Clr Calc Pharmacy 67.8 ml/min; Est GFR (African American) 91.8 ml/min; Est GFR (Non-African American) 79.2 ml/min; Potassium 3.6 mmol/L (3.5-5.1)
[2023-06-08] MEDS: DOXAZosin MESYLATE 4 MG TAB PO SCH (08:53)
[2023-06-08] MEDS: CEROVITE ADV FORMULA TAB PO SCH (08:54)
[2023-06-08] MEDS: FUROSEMIDE 20 MG TAB PO SCH (08:54)
[2023-06-08] MEDS: FINASTERIDE 5 MG TAB PO SCH (08:54)
--- NOTE | 2023-06-08 09:29 | Gastrointestinal Consultation ---
Date of Consultation June 08, 2023 Assessment & Plan (1) Acute GI bleeding: Patient with new onset Melena that started last week in the setting of eliquis use. Last dose of eliquis was 06/07/23 in the morning. Discussed with Dr. Dalton who helped advise on plan. - keep NPO and will plan to do an EGD today to further assess. risks/benefits were discussed and patient/ were agreeable with this. - monitor hgb/hct and transfuse as needed. - continue with protonix 40mg IV bid. Supervising Physician Co-Signing Physician Notes I saw the patient and agree with the findings as documented by LOREE Prasad History of Present Illness Reason for Consultation: Upper GIB Requesting Physician: Nura Deshpande MD Attending Physician: Nas Kim MD History of Present Illness Patient is an 88 year old male with atrial fibrillation and history of stroke who presented to the ED yesterday with complaints of black tarry stools since Monday of last week. He tells me that he also noticed an increase in the amount of bowel movements he was having a day. no brbpr. He does use eliquis but denies any nsaid use outside of a baby aspirin. He was initially seen at [facility] but was told they didn't have GI coverage so he decided to come to [facility]. His does tell me that he uses tums daily and has done so for years though he denies reflux. He denies any nausea, vomiting, heartburn, dysphagia, abdominal pain, unintentional weight loss. Hgb on admission was 9.4 and has trended down towards 9. He tells me that his last black bowel movement was yesterday. He has not moved his bowels yet but tells me he feels like he has to go again. Allergies Allergy/AdvReac Type Severity Reaction Status Date / Time sulfamethoxazole Allergy Intermediate BLISTER--PER Verified 06/07/23 13:01 [From Bactrim] MED LIST trimethoprim [From Bactrim] Allergy Intermediate BLISTER--PER Verified 06/07/23 13:01 MED LIST bee venom protein (honey bee) Allergy Unknown ON MED LIST Verified 06/07/23 13:01 Home Medications Medication Instructions Recorded Confirmed Type acetaminophen 325 mg tablet 650 mg PO DIRECTED PRN Fever Or 02/08/21 06/07/23 History (Tylenol) Pain apixaban 5 mg tablet (Eliquis) 5 mg PO BID 02/08/21 06/07/23 History atorvastatin 80 mg tablet 80 mg PO QPM 02/08/21 06/07/23 History doxazosin 4 mg tablet 4 mg PO DAILY 02/08/21 06/07/23 History dutasteride 0.5 mg capsule 0.5 mg PO DAILY 02/08/21 06/07/23 History furosemide 40 mg tablet See Rx Instructions .Route .COMPLEX 02/08/21 06/07/23 History metoprolol succinate 50 mg 75 mg PO QPM 02/08/21 06/07/23 History tablet,extended release 24 hr vitamins A,C,Z-zgsu-nwjumy 2,148 1 tab PO BID 02/08/21 06/07/23 History mcg-113 mg-45 mg-17.4 mg tablet (PreserVision AREDS) aspirin 81 mg tablet,delayed 81 mg PO QAM #30 tabs 02/14/21 06/07/23 Rx release calcium carbonate 200 mg calcium 400 mg PO BID PRN .gi upset 06/07/23 06/07/23 History (500 mg) chewable tablet (Tums) levothyroxine 50 mcg tablet 50 mcg PO DAILY 06/07/23 06/07/23 History (Synthroid) potassium chloride 20 mEq 20 meq PO BID 06/07/23 06/07/23 History tablet,extended release(part/cryst) (Klor-Con M) Patient History Medical History (Updated 06/08/23 @ 10:32 by Scott Aranda MD) Encounter for pre-operative examination History of stroke Nausea & vomiting Chronic pancreatitis Hypertension Hypothyroidism (acquired) GERD (gastroesophageal reflux disease) BPH w urinary obs/LUTS Atrial fibrillation Hyperlipidemia Secondary bacterial pneumonia Hypoxia Bloody diarrhea Non-ST elevation [place] (NSTEMI) Social History Smoking Status: Never smoker Do You Dip or Chew Tobacco: No; Hx Alcohol Use: Yes Alcohol type: beer Hx Substance Use: No Preferred Language: [place]orese Communication Ability: Effective Photograph Mounter Required: No Beliefs That Will Affect Care: None Current Living Situation: Spouse Current Living Situation Comment: Lives independently at home with Merari Feels Safe at Home: Yes Safety Concerns: Feels Safe At This Time Assistive Devices: None Review of Systems Review of Systems: All systems reviewed & are unremarkable except as noted in HPI & below Physical Exam Constitutional: WD/WN, vitals as above Respiratory: normal respiratory effort, lungs clear to auscultation Cardiovascular: RRR, no murmur, no edema Gastrointestinal (Abdomen): normal bowel sounds, soft, nontender, no hepatosplenomegaly Psychiatric: Orientation: alert and oriented x 3 Affect: euthymic affect Results & Data Vital Signs (Past 12 Hours) Vital Signs Temp Pulse Resp BP Pulse Ox O2 Del Method 06/08/23 07:09 98.4 F 71 14 157/90 H 97 Room Air PG Care Time/CCT Total # of Minutes Spent Total Time Spent with Patient: Total time spent is greater than 50% in coordination of care (as documented) at patient's floor/unit and/or counseling patient: Coding Level of Care Code 11248 INT INP/OBS CARE 2/55MIN Diagnoses Acute GI bleeding K92.2
--- NOTE | 2023-06-08 10:28 | Anesthesiology Consultation ---
Date of Service June 08, 2023 Assessment & Plan (1) Encounter for pre-operative examination: Chart Review Chart Review: Acceptable Risk for Surgery, Patient NOT seen in Pre Admission Testing and glass smoother initiated Consults Requested none Proposed Anesthesia Anesthesia Type: MAC History Surgery Operation Date: 06/08/23 16:30 Proposed Procedures p Esophagogastroduodenoscopy Dr. Dalton - Palomo Dalton MD Height/Weight Height: 5 ft 8 in Weight: 88.9 kg Allergies Allergy/AdvReac Type Severity Reaction Status Date / Time sulfamethoxazole Allergy Intermediate BLISTER--PER Verified 06/07/23 13:01 [From Bactrim] MED LIST trimethoprim [From Bactrim] Allergy Intermediate BLISTER--PER Verified 06/07/23 13:01 MED LIST bee venom protein (honey bee) Allergy Unknown ON MED LIST Verified 06/07/23 13:01 Medications Home Medications Medication Instructions Recorded Confirmed Last Taken acetaminophen 325 mg tablet 650 mg PO DIRECTED PRN Fever Or 02/08/21 06/07/23 Unknown (Tylenol) Pain apixaban 5 mg tablet (Eliquis) 5 mg PO BID 02/08/21 06/07/23 06/07/23 11:30 atorvastatin 80 mg tablet 80 mg PO QPM 02/08/21 06/07/23 02/07/21 doxazosin 4 mg tablet 4 mg PO DAILY 02/08/21 06/07/23 06/07/23 09:00 dutasteride 0.5 mg capsule 0.5 mg PO DAILY 02/08/21 06/07/23 06/07/23 09:00 furosemide 40 mg tablet See Rx Instructions .Route .COMPLEX 02/08/21 06/07/23 06/07/23 09:00 metoprolol succinate 50 mg 75 mg PO QPM 02/08/21 06/07/23 02/08/21 tablet,extended release 24 hr vitamins A,C,D-udpd-scaxtp 2,148 1 tab PO BID 02/08/21 06/07/23 06/07/23 09:00 mcg-113 mg-45 mg-17.4 mg tablet (PreserVision AREDS) aspirin 81 mg tablet,delayed 81 mg PO QAM #30 tabs 02/14/21 06/07/23 06/07/23 11:30 release calcium carbonate 200 mg calcium 400 mg PO BID PRN .gi upset 06/07/23 06/07/23 Unknown (500 mg) chewable tablet (Tums) levothyroxine 50 mcg tablet 50 mcg PO DAILY 06/07/23 06/07/23 06/07/23 (Synthroid) potassium chloride 20 mEq 20 meq PO BID 06/07/23 06/07/23 06/07/23 09:00 tablet,extended release(part/cryst) (Syedor-Con M) Active Medications Generic Name Dose Route Start Last Admin Trade Name Freq PRN Reason Stop Dose Admin Atorvastatin Calcium 80 mg 06/07/23 21:00 06/07/23 19:59 Atorvastatin 40 Mg Tab PO 07/07/23 20:59 80 mg QPM KATHIA Administration Doxazosin Mesylate 4 mg 06/08/23 09:00 06/08/23 08:53 Doxazosin Mesylate 4 Mg Tab PO 07/08/23 08:59 4 mg DAILY KATHIA Administration Finasteride 5 mg 06/08/23 09:00 06/08/23 08:54 Finasteride 5 Mg Tab PO 07/08/23 08:59 5 mg DAILY KATHIA Administration Furosemide 60 mg 06/08/23 09:00 06/08/23 08:54 Furosemide 20 Mg Tab PO 07/08/23 08:59 60 mg Q2D@0900 KATHIA Administration Pantoprazole Sodium 40 mg/ 10 mls @ 5 mls/min 06/07/23 21:00 06/08/23 09:52 Syringe IV 07/07/23 20:59 5 mls/min BID KATHIA Administration Sodium Chloride 1,000 mls @ 80 mls/hr 06/08/23 08:15 06/08/23 08:23 Nss IV 07/08/23 08:14 80 mls/hr .[id number] KATHIA Administration Levothyroxine Sodium 50 mcg 06/08/23 06:30 06/08/23 05:55 Levothyroxine Sodium 50 Mcg Tablet PO 07/08/23 06:29 50 mcg DAILYBB KATHIA Administration Metoprolol Succinate 75 mg 06/07/23 21:00 06/07/23 20:00 Metoprolol Succ 25mg Ext Rel Tab PO 07/07/23 20:59 75 mg QPM KATHIA Administration Multivitamins/Minerals 1 tab 06/08/23 09:00 06/08/23 08:54 Cerovite Adv Formula Tab PO 07/08/23 08:59 1 tab DAILY KATHIA Administration Potassium Chloride 20 meq 06/07/23 21:00 06/08/23 08:55 Potassium Chloride Crtab 20 Meq Tabcr PO 07/07/23 20:59 20 meq BID KATHIA Administration NPO Date Last Intake of Fluids: 06/07/23 Time Last Intake of Fluids: 23:59 Date Last Intake of Solids: 06/07/23 Time Last Intake of Solids: 21:00 Past Medical History Medical History (Updated 06/08/23 @ 10:32 by Scott Aranda MD) Encounter for pre-operative examination History of stroke Nausea & vomiting Chronic pancreatitis Hypertension Hypothyroidism (acquired) GERD (gastroesophageal reflux disease) BPH w urinary obs/LUTS Atrial fibrillation Hyperlipidemia Secondary bacterial pneumonia Hypoxia Bloody diarrhea Non-ST elevation NE (NSTEMI) Social History Smoking Status: Never smoker Do You Dip or Chew Tobacco: No Hx Alcohol Use: Yes Alcohol type: beer alcohol intake frequency: a few times a week Alcohol Intake Frequency Comment: 2 beers per week Hx Substance Use: No Physical Exam Vital Signs Last Vital Signs Temp 36.9 C 06/08/23 07:09 Pulse 71 06/08/23 07:09 Resp 14 06/08/23 07:09 BP 157/90 H 06/08/23 07:09 Pulse Ox 97 06/08/23 07:09 O2 Del Method Room Air 06/08/23 07:09 Testing Laboratory Results 06/08/23 06:44 06/08/23 06:44 PT 14.9 Seconds (9.0-12.0) H 06/07/23 09:42 INR 1.4 (0.9-1.1) H 06/07/23 09:42 APTT 30 Seconds (21-31) 06/07/23 09:42 Blood Type O Positive 06/07/23 09:42 Antibody Screen NEGATIVE 06/07/23 09:42 Electrocardiogram Date: 06/07/23 Test Reason : Blood Pressure : / mmHG Vent. Rate : 070 BPM Atrial Rate : 000 BPM P-R Int : 000 ms QRS Dur : 126 ms QT Int : 462 ms P-R-T Axes : 000 100 -69 degrees QTc Int : 498 ms Paced ventricular rhythm Abnormal ECG Confirmed by Scott Galdamez ([id number]) on 06/07/2023 11:28:00 AM Chest X-Ray Date: 06/07/23 XR chest 1V portable HISTORY: 88 years-old Male shortness of breath, UGI bleed acute shortness of breath COMPARISON: 02/08/2021 TECHNIQUE: AP view of the chest FINDINGS: Cardiac silhouette is enlarged. Single lead left subclavian pacer. No pneumothorax, large pleural effusion or lobar airspace consolidation. The bones appear grossly intact. IMPRESSION: Cardiomegaly without acute process. Echocardiogram Date: 02/09/21 EF: 55-60 LV Function: normal RWMA: + none Other Findings: + LVH (mild) Valvular Disease: + (mild - mod) and + MR (mod) severe pHTN
[2023-06-08] MEDS: CYANOCOBALAMIN 1000 MCG/ML VIAL IM SCH (11:13)
[2023-06-08 12:34] LABS: Hematocrit (blood only) 32.4 % (42.0-52.0); Hemoglobin 10.8 g/dl (14.0-18.0)
--- NOTE | 2023-06-08 13:24 | Hospitalist Progress Note ---
Date of Service June 08, 2023 Assessment & Plan (1) Melena: Plan: From upper GI bleeding. GI consultation and recommendations appreciated. The patient is currently n.p.o. on IV fluids. He will undergo EGD later today, June 08. Continue parenteral Protonix therapy. Aspirin and Eliquis are on hold (2) Acute blood loss anemia: Plan: Hemoglobin is stable in the 9-10 range. Serial H&H ordered. Transfuse as necessary. Consent form has been signed. (3) Atrial fibrillation: Plan: Eliquis on hold due to GI bleeding. Continue metoprolol for rate control (4) Chronic congestive heart failure: Plan: Diastolic. No overt exacerbation at this time. Monitor intake and output. Continue Lasix and metoprolol (5) BPH w urinary obs/LUTS: Plan: Stable. Continue doxazosin and dutasteride (6) Hyperlipidemia: Plan: Stable. Continue atorvastatin (7) Hypothyroidism (acquired): Plan: Stable. Continue levothyroxine replacement therapy (8) Acute GI bleeding: Plan: Hemoglobin is stable in the 9-10 range. Serial H&H ordered. Transfuse as necessary. Transfusion consent form has been signed Plan Hopeful discharge to home within the next day or 2 Admission and Anticipated Discharge Date Admission Date: June 07, 2023 Subjective Alert and oriented. No distress. GI consultation noted. EGD will be completed today. Serial hemoglobin and hematocrit levels are ordered. He is currently n.p.o. on IV fluids. Continue IV Protonix. Review of Systems 2 Review of Systems: Constitutional-no fever or chills ENT-no blurred vision, no double vision, no epistaxis, no sore throat Respiratory-no cough, no wheezing, no shortness of breath Cardiac-no palpitations, no chest pain, no syncope GI-no nausea, vomiting, diarrhea, hematochezia. He has recently developed a melena -no urinary retention, no urinary incontinence, no dysuria, no hematuria Musculoskeletal-no joint pain, no muscle tenderness Skin-no bruising, no rashes, no pruritus Neuro-no isolated weakness, no paresthesia Psych-no depression, no anxiety Physical Exam 2 Physical Exam: General-alert and oriented x3, no fever, no chills HEENT-head atraumatic and normocephalic, pupils equal and reactive to light, extraocular muscles intact Neck-no lymphadenopathy or thyromegaly, trachea midline Chest-clear to auscultation. No rales, wheezing or rhonchi Cardiac-regular rate and rhythm, normal S1 and S2 Abdomen-normal bowel sounds, nontender, no hepatosplenomegaly Extremities-no cyanosis, clubbing, or edema Neuro-cranial nerves II through XII intact, motor and sensory function within normal limits, strength symmetrical, no focal deficits Psych-normal affect, normal mood Results & Data Results & Data Vital Signs (Past 12 Hours) Vital Signs Temp Pulse Resp BP BP Pulse Ox O2 Del Method 06/08/23 11:05 36.6 C 70 16 117/71 96 Room Air 06/08/23 07:09 36.9 C 71 14 157/90 H 97 Room Air Laboratory Results 06/08/23 11:59 06/08/23 06:44 PG Care Time/CCT Total # of Minutes Spent Total Time Spent with Patient: Total time spent is greater than 50% in coordination of care (as documented) at patient's floor/unit and/or counseling patient: Coding Level of Care Code 02814 SUB INP/OBS CARE 3/50MIN Diagnoses Melena K92.1 Acute blood loss anemia D62 Atrial fibrillation I48.91 Chronic congestive heart failure I50.9 BPH w urinary obs/LUTS N40.1; N13.8 Hyperlipidemia E78.5 Hypothyroidism (acquired) E03.9 Acute GI bleeding K92.2
--- NOTE | 2023-06-08 15:06 | GI REPORT ---
Patient Name: Nas Segal Procedure Date: 06/08/2023 2:38 PM Date of : 1935 Admit Type: Inpatient Age: 88 Gender: Male Attending MD: Palomo Dalton MD, Procedure: Upper GI endoscopy Providers: Palomo Dalton MD Referring MD: Referred Self Indications: Melena Medicines: Monitored Anesthesia Care Complications: No immediate complications. Estimated blood loss: None. Estimated Blood Loss: Estimated blood loss: none. Procedure: Pre-Anesthesia Assessment: - Prior Anticoagulants: The patient has taken no anticoagulant or antiplatelet agents. - ASA Grade Assessment: II - A patient with mild systemic disease. After obtaining informed consent, the endoscope was passed under direct vision. Throughout the procedure, the patient's blood pressure, pulse, and oxygen saturations were monitored continuously. The Endoscope was introduced through the mouth, and advanced to the second part of duodenum. The upper GI endoscopy was accomplished without difficulty. The patient tolerated the procedure well. Findings: The examined esophagus was normal. One non-bleeding cratered gastric ulcer with no stigmata of bleeding was found in the gastric antrum. Biopsies were taken with a cold forceps for Helicobacter pylori testing. Estimated blood loss: none. Diffuse mild inflammation characterized by erosions and erythema was found in the stomach. One non-bleeding cratered duodenal ulcer with no stigmata of bleeding was found in the duodenal bulb. Diffuse mild inflammation characterized by erythema was found in the duodenal bulb. The second portion of the duodenum was normal. Impression: - Normal esophagus. - Non-bleeding gastric ulcer with no stigmata of bleeding. Biopsied. - Gastritis. - Non-bleeding duodenal ulcer with no stigmata of bleeding. - Duodenitis. - Normal second portion of the duodenum. Recommendation: - Advance diet as tolerated today. - Await pathology results. - Return patient to hospital [facility] for ongoing care. -protonix 40 mg daily going forward indefinitely Palomo Dalton MD 06/08/2023 3:05:54 PM This report has been signed electronically. Note Initiated On: 06/08/2023 2:38 PM Number of Addenda: 0 I attest to the content of the Intraoperative Record and orders documented therein, exceptions below {[id number]}
[2023-06-08] MEDS: PROPOFOL IV EMULSION 10 MG/ML 20 ML VIAL IV ONE (16:00)
[2023-06-08] MEDS: LIDOCAINE 2% 2 ML VIAL/AMP(20MG/ML) INFIL ONE (16:00)
--- NOTE | 2023-06-08 16:00 | Anesthesiology Progress Note ---
Date of Service June 08, 2023 Anesthesia Post Procedure Vital Signs Vital Signs: Temp Pulse Pulse Resp BP BP Pulse Ox 06/08/23 15:44 36.3 C L 70 16 114/70 98 06/08/23 15:33 70 18 120/74 96 06/08/23 15:27 99 06/08/23 15:18 70 15 110/70 99 06/08/23 15:03 70 15 102/64 98 06/08/23 14:18 36.3 C L 70 70 16 122/93 98 06/08/23 11:05 36.6 C 70 16 117/71 96 06/08/23 07:09 36.9 C 71 14 157/90 H 97 06/07/23 19:57 36.5 C 70 18 142/80 H 98 06/07/23 18:36 36.5 C 70 16 164/101 H 98 06/07/23 18:00 76 20 102/68 96 O2 Del Method O2 Flow Rate 06/08/23 15:44 Room Air 06/08/23 15:33 Room Air 06/08/23 15:27 Room Air 06/08/23 15:18 Nasal Cannula 3 06/08/23 15:03 Nasal Cannula 3 06/08/23 14:18 Room Air 06/08/23 11:05 Room Air 06/08/23 07:09 Room Air 06/07/23 19:57 Room Air 06/07/23 18:36 Room Air 06/07/23 18:00 Room Air Transfer of Care Handoff Completed per policy Notes Mental Status: alert / awake / arousable and participated in evaluation Patient Amnestic to Procedure: Yes Nausea / Vomiting: adequately controlled Pain: adequately controlled Airway Patency, RR, SpO2: stable & adequate BP & HR: stable & adequate Hydration State: stable & adequate Anesthetic Complications: no major complications apparent
[2023-06-08] MEDS: SUCRALFATE 1 GM TAB PO SCH (16:59)
[2023-06-08 18:55] LABS: Hematocrit (blood only) 31.2 % (42.0-52.0)
[2023-06-08] MEDS: PANTOprazole 40 MG TAB PO SCH (23:48)
[2023-06-09 07:43] LABS: Basophils # (auto) 0.05 K/uL (0.00-0.20); Basophils % (auto) 0.7 %; Eosinophils # (auto) 0.21 K/uL (0.00-0.50); Eosinophils % (auto) 2.9 %; Hemoglobin 9.3 g/dl (14.0-18.0); Immature Granulocytes # (auto) 0.02 K/uL (0.01-0.20); Immature Granulocytes % (auto) 0.3 %; Lymphocytes # (auto) 1.53 K/uL (1.20-3.40); Lymphocytes % (auto) 21.3 %; Mean Corpuscular Hemoglobin 32.2 pg (25.0-34.0); Mean Corpuscular Hgb Conc 32.1 g/dL (32.0-36.0); Mean Corpuscular Volume 100.3 fL (80.0-100.0); Mean Platelet Volume 10.9 fL (9.4-12.4); Monocytes # (auto) 0.77 K/uL (0.11-0.59); Monocytes % (auto) 10.7 %; Neutrophils # (auto) 4.61 K/uL (1.40-6.50); Neutrophils % (auto) 64.1 %; Platelet Count 174 K/uL (130-400); RDW Coefficient of Variation 14.9 % (11.5-14.5); RDW Standard Deviation 54.3 fL (36.4-46.3); Red Blood Count 2.89 M/uL (4.70-6.10); White Blood Count 7.19 K/ul (4.8-10.8)
[2023-06-09 08:13] LABS: BUN Creatinine Ratio 20.5 (10-20); Calcium 8.5 mg/dl (8.6-10.3); Creatinine Clr Calc Pharmacy 61.7 ml/min; Est GFR (African American) 88.3 ml/min; Est GFR (Non-African American) 76.2 ml/min; Potassium 3.5 mmol/L (3.5-5.1)
[2023-06-09] MEDS: FUROSEMIDE 40 MG TAB PO SCH (08:23)
--- NOTE | 2023-06-09 18:17 | Discharge Summary ---
Date of Service June 09, 2023 Admission HPI Per Admitting Provider Nas Segal is an 88-year-old male with atrial fibrillation history of stroke who presents to the ER with black tarry stools since Monday. He denies any history of heartburn but reports taking Tums 3 times a day for the last year for mild epigastric pain. He has not taken Tums for the last 2 days. Black tarry stools started on Monday. He has not had a bowel movement for the last 2 days. No nausea, vomiting, abdominal pain, chest pain, shortness of breath, dizziness. He was seen at [place] emergency room yesterday and was given the option of admission however there was no gastroenterology coverage so he would have to wait for a bed at another hospital. Therefore he decided to go home and he was not told to stop the Eliquis or aspirin - therefore last took this this morning at 11:30 AM while in the waiting room. He takes Eliquis for atrial fibrillation with history of stroke. Unknown why he takes aspirin in addition to Eliquis other than his history of stroke which he reports was suspected due to his at [facility] fibrillation. He has never had melena or a gastrointestinal bleed in the past. He denies any NSAID use. Principal Diagnosis upper gi bleed clean based gastric ulcer acute blood loss anemia Discharge Exam awake and alert cardiac is regular abdomen is soft and non tender Discharge Data Allergies Allergy/AdvReac Type Severity Reaction Status Date / Time sulfamethoxazole Allergy Intermediate BLISTER--PER Verified 06/08/23 14:20 [From Bactrim] MED LIST trimethoprim [From Bactrim] Allergy Intermediate BLISTER--PER Verified 06/08/23 14:20 MED LIST bee venom protein (honey bee) Allergy Unknown ON MED LIST Verified 06/08/23 14:20 Consultations 06/07/23 12:37 ED Decision to Admit Stat 06/07/23 18:32 Consult Gastroenterology Routine Procedures Performed Operation Date: 06/08/23 16:30 Actual Procedures p EGD Biopsy Cytology - Palomo Dalton MD Hospital Course (1) Melena: From upper GI bleeding. GI consultation and appreciated. EGD later today, June 08. clean based gastric ulcer biopsy done Continue twice daily Protonix therapy. Aspirin and Eliquis are on hold, will discuss eliquis with dr Hou, restart aspirin in one week (2) Acute blood loss anemia: Hemoglobin is stable in the 9-10 range. stable not in need of transfusion. (3) Atrial fibrillation: Eliquis on hold due to GI bleeding. Continue metoprolol for rate control (4) Chronic congestive heart failure: Diastolic. No overt exacerbation at this time. Continue Lasix and metoprolol (5) BPH w urinary obs/LUTS: Stable. Continue doxazosin and dutasteride (6) Hyperlipidemia: Stable. Continue atorvastatin (7) Hypothyroidism (acquired): Stable. Continue levothyroxine replacement therapy Total Time Total Time Spent Total Time Spent (In Minutes): It required greater than 30 minutes to prepare this patient for discharge. Discharge Plan Discharge Items Patient Disposition: Home - Self-Care Reason For Visit: UPPER GI BLEED Discharge Diagnosis: upper Gi Bleed clean based ulcer acute blood loss anemia Activity: Resume your previous activity Non-emergency contact: Primary Care Provider Call non-emergency contact if: your symptoms worsen Follow-up/Referrals: Bright Sanchez MD [Primary Care Provider] - 06/15/23 9:00 am (brandi/ Ashok) Diet: Regular Addtl Attending Provider Instructions: please avoid citrus or acid containing foods, avoid nsaids follow up with [facility] GI medicine Pending Studies at Discharge: No Stand-Alone Forms: My [facility] [employer], Smoking Cessation Medications and DC Order Prescriptions: New sucralfate 1 gram Tablet 1 g PO QID Qty: 16 0RF pantoprazole 40 mg Tablet,Delayed Release (Dr/Ec) 40 mg PO BID Qty: 60 5RF pantoprazole [Protonix] 40 mg tablet,delayed release (DR/EC) 40 mg PO DAILY Qty: 60 5RF Continued furosemide 40 mg tablet See Rx Instructions .ROUTE .COMPLEX Rx Instructions: 40 mg ORALLY; TAKES 40 MG ON EVEN DAYS, 60 MG ON ODD DAYS. atorvastatin 80 mg tablet 80 mg PO QPM acetaminophen [Tylenol] 325 mg Tablet 650 mg PO DIRECTED PRN (Reason: Fever Or Pain) metoprolol succinate 50 mg tablet extended release 24 hr 75 mg PO QPM doxazosin 4 mg tablet 4 mg PO DAILY dutasteride 0.5 mg capsule 0.5 mg PO DAILY PreserVision AREDS 7,160 unit- 113 mg-100 unit Tablet 1 tab PO BID potassium chloride [Klor-Con M20] 20 mEq tablet,ER particles/crystals 20 meq PO BID levothyroxine [Synthroid] 50 mcg tablet 50 mcg PO DAILY calcium carbonate [Tums] 200 mg calcium (500 mg) Tablet,Chewable 400 mg PO BID PRN (Reason: .gi upset) Held aspirin 81 mg Tablet,Delayed Release (Dr/Ec) 81 mg PO QAM Qty: 30 3RF Hold Instructions: Resume on 06/14/23. Discontinued Eliquis 5 mg tablet 5 mg PO BID Discharge Orders: Discharge Order (Routine); Ordered 06/09/23 Ordered By: Enrrique Melendez Admission Data Admit Date/Time: 06/07/23 12:56 Attending Provider: Enrrique Melendez Admit Provider: Nura Deshpande Primary Care Provider: Bright Sanchez Other Providers: Palomo aDlton; Nura Deshpande Other Interventions: Discharge Summary Assessment (RN) Last Done: 06/09/23 15:48 Coding Level of Care Code 94691 INP/OBS DISCH >30 MIN Diagnoses Melena K92.1 Acute blood loss anemia D62 Atrial fibrillation I48.91 Chronic congestive heart failure I50.9 BPH w urinary obs/LUTS N40.1; N13.8 Hyperlipidemia E78.5 Hypothyroidism (acquired) E03.9
[2023-06-11] MEDS ORDERED: CYANOCOBALAMIN (B-12) 500 MCG TABLET PO SCH (09:00)
== END 2023-06-09 16:30 | disposition home or self-care (01) | DRG 378 ==
LOC: ED 09:30 → SUATTDRO 12:56 → EDINP 12:56 → INTOOBSV 12:56 → 3W 14:31